=== PATIENT | female | born 1950 | race Caucasian/White ===

== ENCOUNTER 2020-02-23 11:23 | Inpatient (IN) | payer MEDICARE, OTHER ==
[~2020-02-23] VITALS: Ht 170 cm; Wt 93.4 kg
--- NOTE | 2020-02-23 11:57 | ED Lower Extremity ---
General Chief Complaint: Trauma-Non Activation Stated Complaint: FALL Nursing Triage Note: fall from same level. Is complaining of R leg and left arm pain. Nursing Sepsis Screen: No Definite Risk Source: patient Exam Limitations: no limitations History of Present Illness Date Seen by Provider: Feb 23, 2020 Time Seen by Provider: 11:50 Initial Comments Presents via private vehicle in a wheelchair w c/o right hip pain after a fall. Ground level fall landing on right side and hurting left shoulder as well. Hx of parkinson's Dz. Denies head or neck injury. Allergies and Home Medications Allergies Coded Allergies: monosodium glutamate (Verified Allergy, Unknown, blurry vision , 02/23/20) Patient Home Medication List Home Medication List Reviewed: Yes Review of Systems Constitutional: no symptoms reported; No chills, No diaphoresis, No fever, No malaise, No weakness EENTM: no symptoms reported Respiratory: No cough, No short of breath Cardiovascular: No chest pain, No edema, No palpitations, No syncope Gastrointestinal: No abdominal pain, No nausea, No vomiting Musculoskeletal: see HPI; No back pain; joint pain (right hip); No joint swelling, No neck pain; other (some pain left shoulder and arm) Skin: No change in color, No lesions, No lumps, No rash Psychiatric/Neurological: Denies Numbness, Denies Paresthesia Past Cjhvzll-Gwrfug-Sohxta Hx Past Med/Social Hx: Reviewed Nursing Past Med/Soc Hx Patient Social History Alcohol Use: Denies Use Recreational Drug Use: No Smoking Status: Current Everyday Smoker 2nd Hand Smoke Exposure: No Recent Foreign Travel: No Contact w/Someone Who Travel: No Recent Infectious Disease Expo: No Recent Hopitalizations: No Seasonal Allergies Seasonal Allergies: No Past Medical History Surgeries: Yes Section, Hysterectomy Respiratory: No Cardiac: No Neurological: Yes Parkinson's Disease Genitourinary: No Gastrointestinal: No Musculoskeletal: No Endocrine: No HEENT: No Cancer: No Psychosocial: No Integumentary: No Blood Disorders: No Adverse Reaction/Blood Tranf: No Physical Exam Vital Signs Vital Signs - First Documented 02/23/20 11:38 Temp 36.5 Pulse 78 Resp 16 B/P (MAP) 154/90 (111) Pulse Ox 91 Capillary Refill : Less Than 3 Seconds Height, Weight, BMI Height: '" Weight: lbs. oz. kg; 30.00 BMI Method: General Appearance: WD/WN, no apparent distress Neck: non-tender, full range of motion, supple Cardiovascular: regular rate, rhythm, no edema, no JVD Respiratory: lungs clear, normal breath sounds, no accessory muscle use Gastrointestinal: non tender, soft Back: normal inspection, no CVA tenderness, no vertebral tenderness Hips: left hip non-tender, left hip normal inspection, left hip normal range of motion, left hip no evidence of injury; right hip bone tenderness, right hip limited range of motion, right hip soft tissue tenderness Legs: bilateral leg non-tender, bilateral leg normal inspection, bilateral leg normal range of motion, bilateral leg no evidence of injury Knees: bilateral knee non-tender, bilateral knee normal inspection, bilateral knee normal range of motion, bilateral knee no evidence of injury Ankles: bilateral ankle non-tender, bilateral ankle normal inspection, bilateral ankle normal range of motion, bilateral ankle no evidence of injury Feet: bilateral foot non-tender, bilateral foot normal inspection, bilateral foot normal range of motion, bilateral foot no evidence of injury Neurologic/Psychiatric: alert, normal mood/affect, oriented x 3 Skin: normal color, warm/dry Progress/Results/Core Measures Results/Orders Lab Results Laboratory Tests Test 02/23/20 12:30 Range/Units White Blood Count 16.4 H 4.3-11.0 10^3/uL Red Blood Count 4.74 4.35-5.85 10^6/uL Hemoglobin 13.5 11.5-16.0 G/DL Hematocrit 41 35-52 % Mean Corpuscular Volume 87 80-99 FL Mean Corpuscular Hemoglobin 28 25-34 PG Mean Corpuscular Hemoglobin Concent 33 32-36 G/DL Red Cell Distribution Width 13.1 10.0-14.5 % Platelet Count 261 130-400 10^3/uL Mean Platelet Volume 10.2 7.4-10.4 FL Neutrophils (%) (Auto) 86 H 42-75 % Lymphocytes (%) (Auto) 9 L 12-44 % Monocytes (%) (Auto) 5 0-12 % Eosinophils (%) (Auto) 0 0-10 % Basophils (%) (Auto) 0 0-10 % Neutrophils # (Auto) 14.0 H 1.8-7.8 X 10^3 Lymphocytes # (Auto) 1.5 1.0-4.0 X 10^3 Monocytes # (Auto) 0.7 0.0-1.0 X 10^3 Eosinophils # (Auto) 0.0 0.0-0.3 10^3/uL Basophils # (Auto) 0.0 0.0-0.1 10^3/uL Neutrophils % (Manual) 70 % Lymphocytes % (Manual) 12 % Monocytes % (Manual) 5 % Eosinophils % (Manual) 1 % Basophils % (Manual) 0 % Band Neutrophils 12 % Blood Morphology Comment NORMAL Sodium Level 141 135-145 MMOL/L Potassium Level 4.1 3.6-5.0 MMOL/L Chloride Level 103 98-107 MMOL/L Carbon Dioxide Level 28 21-32 MMOL/L Anion Gap 10 5-14 MMOL/L Blood Urea Nitrogen 15 7-18 MG/DL Creatinine 0.78 0.60-1.30 MG/DL Estimat Glomerular Filtration Rate > 60 BUN/Creatinine Ratio 19 Glucose Level 135 H 70-105 MG/DL Calcium Level 9.3 8.5-10.1 MG/DL Corrected Calcium 9.1 8.5-10.1 MG/DL Total Bilirubin 0.4 0.1-1.0 MG/DL Aspartate Amino Transf (AST/SGOT) 18 5-34 U/L Alanine Aminotransferase (ALT/SGPT) 5 0-55 U/L Alkaline Phosphatase 148 H 40-136 U/L Total Protein 6.8 6.4-8.2 GM/DL Albumin 4.3 3.2-4.5 GM/DL My Orders Orders - ROVENSTINE,ELISHA L DO Hydrocodone/Apap 10/325 Tablet (Lortab 1 (02/23/20 12:00) Pelvis With Right Hip 2-3 View (02/23/20 12:04) Cbc With Automated Diff (02/23/20 12:51) Comprehensive Metabolic Panel (02/23/20 12:51) Chest 1 View Ap/Pa Only (02/23/20 12:51) Ekg Tracing (02/23/20 12:51) Manual Differential (02/23/20 12:30) Medications Given in ED Current Medications Medications Dose Ordered Sig/Adarsh Route Start Time Stop Time Status Last Admin Dose Admin Acetaminophen/ Hydrocodone Bitart 1 ea ONCE ONCE PO 02/23/20 12:00 02/23/20 12:01 DC 02/23/20 12:06 1 EA Vital Signs/I&O 02/23/20 11:38 Temp 36.5 Pulse 78 Resp 16 B/P (MAP) 154/90 (111) Pulse Ox 91 Blood Pressure Mean: 111 Initial ECG Rhythm: Normal Sinus Initial ECG Impression: Normal Departure Communication (Admissions) [address] Irizarry who agrees to see pt for Ortho repair. [address] Houston who agrees to admit Impression Primary Impression: Fracture of hip, right, closed Qualified Codes: S72.001A - Fracture of unspecified part of neck of right femur, initial encounter for closed fracture Additional Impression: Fall Qualified Codes: W19.XXXA - Unspecified fall, initial encounter Disposition: ADMITTED INPATIENT Condition: Stable Admissions Decision to Admit Reason: Admit from ER (Trauma) Decision to Admit/Date: Feb 23, 2020 Time/Decision to Admit Time: 12:20 Departure-Patient Inst. Referrals: ALEX VILLASENOR MD (PCP/Family) Primary Care Physician ELISHA CLAUDIO DO Feb 23, 2020 11:57
[2020-02-23] MEDS ORDERED: HYDROcodone/APAP 10 MG/325 MG (LORTAB) TAB PO ONE (12:00)
--- NOTE | 2020-02-23 12:35 | Diagnostic Imaging Report ---
INDICATION: Fall with right hip pain. Time of exam 12:19 PM AP view of the pelvis and multiple views right hip were obtained. There is a transversely oriented lucency through the right femoral neck extending through the medial cortex consistent with a right hip fracture. Femoral acetabular alignment is maintained. There is no dislocation. The left hip is intact. Rami are intact. IMPRESSION: Right femoral neck fracture. Dictated by: Dictated on workstation # [id number]
[2020-02-23] MEDS ORDERED: CARB1TAB19 PO (12:52)
[2020-02-23 13:04] LABS: HEMATOCRIT 41 % (35-52); HEMOGLOBIN 13.5 G/DL (11.5-16.0); MEAN CORPUSCULAR HEMOGLOBIN 28 PG (25-34); MEAN CORPUSCULAR HGB CONC 33 G/DL (32-36); MEAN CORPUSCULAR VOLUME 87 FL (80-99); PLATELET COUNT 261 10^3/uL (130-400); RED CELL DISTRIBUTION WIDTH 13.1 % (10.0-14.5); WHITE BLOOD COUNT 16.4 10^3/uL (4.3-11.0)
[2020-02-23 13:05] LABS: BASOPHILS % (AUTO) 0 % (0-10); EOSINOPHILS % (AUTO) 0 % (0-10); LYMPHOCYTES # (AUTO) 1.5 X 10^3 (1.0-4.0); LYMPHOCYTES % (AUTO) 9 % (12-44); MEAN PLATELET VOLUME 10.2 FL (7.4-10.4); MONOCYTES # (AUTO) 0.7 X 10^3 (0.0-1.0); MONOCYTES % (AUTO) 5 % (0-12); NEUTROPHILS % (AUTO) 86 % (42-75)
[2020-02-23] MEDS ORDERED: fentaNYL INJECTION 100 MCG/2 ML AMP ONE ×2 (13:07→15:50)
[2020-02-23 13:11] LABS: ALANINE AMINOTRANSFERASE 5 U/L (0-55); ALBUMIN 4.3 GM/DL (3.2-4.5); ALKALINE PHOSPHATASE 148 U/L (40-136); BILIRUBIN,TOTAL 0.4 MG/DL (0.1-1.0); BUN/CREATININE RATIO 19; CALCIUM 9.3 MG/DL (8.5-10.1); CARBON DIOXIDE 28 MMOL/L (21-32); CHLORIDE 103 MMOL/L (98-107); CREATININE SERUM 0.78 MG/DL (0.60-1.30); GFR ESTIMATED > 60; GLUCOSE 135 MG/DL (70-105); POTASSIUM 4.1 MMOL/L (3.6-5.0); SODIUM 141 MMOL/L (135-145); TOTAL PROTEIN 6.8 GM/DL (6.4-8.2)
[2020-02-23] MEDS ORDERED: fentaNYL INJECTION 100 MCG/2 ML AMP IVP ONE (13:15)
[2020-02-23 13:18] LABS: BAND NEUTROPHILS 12 %; BASOPHILS % (MANUAL) 0 %; EOSINOPHILS % (MANUAL) 1 %; LYMPHOCYTES % (MANUAL) 12 %; MONOCYTES % (MANUAL) 5 %; NEUTROPHILS % (MANUAL) 70 %; RBC MORPH NORMAL
--- OUTSIDE RECORDS SUMMARY | 2020-02-23 13:19 | XMS REPORT | Continuity of Care Document ---
Demographics Preferred Language Unknown Marital Status Unknown Congregation Affiliation Unknown Race Unknown Ethnic Group Unknown Author Organization Unknown Address Unknown Phone Unavailable Allergies There is no data. Medications There is no data. Problems There is no data. Procedures There is no data. Results Test Result Range Complete blood count (CBC) with automate d white blood cell (WBC) differential - 02/23/20 12:30 Blood leukocytes automated count (number/volume) 16.4 10*3/uL 4.3-11.0 Blood erythrocytes automated count (number/volume) 4.74 10*6/uL 4.35-5.85 Venous blood hemoglobin measurement (mass/volume) 13.5 g/dL 11.5-16.0 Blood hematocrit (volume fraction) 41 % 35-52 Automated erythrocyte mean corpuscular volume 87 [ foz_us] 80-99 Automated erythrocyte mean corpuscular h emoglobin (mass per erythrocyte) 28 pg 25-34 Automated erythrocyte mean corpuscular h emoglobin concentration measurement (mass/volume) 33 g/dL 32-36 Automated erythrocyte distribution width ratio 13. 1 % 10.0- 14.5 Automated blood platelet count (count/volume) 261 10*3/uL 130-400 Automated blood platelet mean volume measurement 10.2 [foz_us] 7.4-10.4 Automated blood neutrophils/100 leukocytes 86 % 42-75 Automated blood lymphocytes/100 leukocytes 9 % 12-44 Blood monocytes/100 leukocytes 5 % 0-12 Automated blood eosinophils/100 leukocytes 0 % 0-10 Automated blood basophils/100 leukocytes 0 % 0-10 Blood neutrophils automated count (number/volume) 14.0 10*3 1.8-7.8 Blood lymphocytes automated count (number/volume) 1.5 10*3 1.0-4.0 Blood monocytes automated count (number/volume) 0. 7 10*3 0.0-1.0 Automated eosinophil count 0.0 10*3/uL 0 .0-0.3 Automated blood basophil count (count/volume) 0.0 10*3/uL 0.0-0.1 Comprehensive metabolic panel - 02/23/20 12:30 Serum or plasma sodium measurement (moles/volume) 141 mmol/L 135-145 Serum or plasma potassium measurement (moles/volume) 4.1 mmol/L 3.6-5.0 Serum or plasma chloride measurement (moles/volume) 103 mmol/L 98-107 Carbon dioxide 28 mmol/L 21-32 Serum or plasma anion gap determination (moles/volume) 10 mmol/L 5-14 Serum or plasma urea nitrogen measurement (mass/volume ) 15 mg/dL 7-18 Serum or plasma creatinine measurement (mass/volume) 0.78 mg/dL 0.60-1.30 Serum or plasma urea nitrogen/creatinine mass ratio 19 NRG Serum or plasma creatinine measurement w ith calculation of estimated glomerular filtration rate > NRG Serum or plasma glucose measurement (mass/volume) 135 mg/dL 70-105 Serum or plasma calcium measurement (mass/volume) 9.3 mg/dL 8.5-10.1 Serum or plasma total bilirubin measurement (mass/volu me) 0.4 mg/dL 0.1-1.0 Serum or plasma alkaline phosphatase lesly surement (enzymatic activity/volume) 148 U/L 40-136 Serum or plasma aspartate aminotransfera se measurement (enzymatic activity/volume) 18 U/L 5-34 Serum or plasma alanine aminotransferase measurement (enzymatic activity/volume) 5 U/L 0-55 Serum or plasma protein measurement (mass/volume) 6.8 g/dL 6.4-8.2 Serum or plasma albumin measurement (mass/volume) 4.3 g/dL 3.2-4.5 CALCIUM CORRECTED 9.1 mg/dL 8.5-10.1 Manual absolute plasma cell count - 01/31 02/18 12:30 Blood monocytes/100 leukocytes 5 % NRG Manual blood segmented neutrophils/100 leukocytes 70 % NRG Blood band neutrophils/100 leukocytes 12 % NRG Manual blood lymphocytes/100 leukocytes 12 % NRG Manual eosinophils/100 leukocytes in nose 1 % NRG Manual blood basophils/100 leukocytes 0 % NRG Blood erythrocyte morphology finding identification NORMAL NRG Encounters ACCT No. Visit Date/Time Discharge Status Pt. Type Provider Facility Loc./Unit Complaint [id number] 02/23/2020 13:05:00 Document Registration
--- NOTE | 2020-02-23 13:24 | Diagnostic Imaging Report ---
INDICATION: Right hip fracture COMPARISON: None available TECHNIQUE: Single frontal radiograph of the chest dated February 23, 2020. FINDINGS: The cardiac silhouette is enlarged. Mild central pulmonary vascular congestion. Calcified granuloma within the peripheral right lung base. Mild diffuse interstitial opacities are noted bilaterally without additional focal pulmonary consolidation. No significant pleural effusion. No pneumothorax. Right cervical rib is suggested. No acute osseous abnormality. IMPRESSION: Cardiomegaly with mild central pulmonary vascular congestion and very minimal interstitial edema without pleural effusion. Probable right cervical rib. Dictated by: Dictated on workstation # [id number]
[2020-02-23 15:04] VITALS: BP 159/76
[2020-02-23] MEDS ORDERED: CATHETER FLUSH 10 ML SYR IV PRN (15:45)
[2020-02-23 15:49] VITALS: BP 159/76
[2020-02-23] MEDS ORDERED: fentaNYL INJECTION 100 MCG/2 ML AMP IVP PRN (16:00)
--- NOTE | 2020-02-23 16:43 | Progress Note ---
Standard Progress Note Progress Notes/Assess & Plan Date Seen by a Provider: Feb 23, 2020 Time Seen by a Provider: 16:42 Progress/Assessment & Plan patient seen and examined consult dictated plan for Right hip hemiarthroplasty in the AM PERI TELLES MD Feb 23, 2020 16:43
[2020-02-23 16:46] LABS: BILIRUBIN,URINE NEGATIVE (NEGATIVE); CLARITY,URINE CLOUDY; COLOR,URINE YELLOW; GLUCOSE, URINE (UA) NEGATIVE (NEGATIVE); KETONES,URINE TRACE (NEGATIVE); LEUKOCYTE ESTERASE ,URINE 1+ (NEGATIVE); NITRITE,URINE POSITIVE (NEGATIVE); PROTEIN,URINE NEGATIVE (NEGATIVE)
[2020-02-23 17:00] LABS: BACTERIA,URINE LARGE /HPF; WBC,URINE 25-50 /HPF
[2020-02-23] MEDS: SINEMET 25/100 (CARBIDOPA/LEVODOPA) TAB PO SCH ×2 (17:23→20:38)
[2020-02-23] MEDS: HYDROcodone/APAP 5 MG/325 MG (LORTAB) TAB PO PRN ×2 (17:34→23:42)
--- NOTE | 2020-02-23 17:34 | CONSULTATION REPORT ---
DATE OF SERVICE: 02/23/2020 REASON FOR CONSULTATION: Right femoral neck fracture. HISTORY OF PRESENT ILLNESS: The patient is a 69-year-old female with Parkinson's disease who fell this morning onto her right side. She reports that she fell very hard. She has difficulty getting up initially. 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 Ultimately, she ambulated with a walker, but had continued pain. She ultimately presented to an outside Emergency Department where radiographs were obtained and she was found to have a displaced right femoral neck fracture. She reports no antecedent pain. Her pain is currently well controlled and she earlier received some fentanyl. ALLERGIES: No known drug allergies. PAST MEDICAL HISTORY: Parkinson's. PAST SURGICAL HISTORY: , hysterectomy. PHYSICAL EXAMINATION: HEENT: Normocephalic, atraumatic. Pupils are equal, round and reactive to light. Oropharynx is clear. NECK: Supple, no lymphadenopathy. LUNGS: Clear to auscultation bilaterally. HEART: Regular rate and rhythm. ABDOMEN: Soft, nontender, nondistended. EXTREMITIES: The right lower extremity was externally rotated without significant shortening. She has symmetric pulses. She has intact dorsiflexion and plantarflexion of the toes with brisk capillary refill. Sensation is symmetric to light touch. Radiographs reveal displaced right femoral neck fracture. IMPRESSION: Closed displaced right femoral neck fracture. PLAN: Right hemiarthroplasty. The risks, benefits, options, ramifications and recovery were discussed at length with the patient. She understands and wishes to proceed. Job ID: [id number] DocumentID: [id number] Dictated Date: 02/23/2020 16:42:28 Animal Husbandry Technician Date: 02/23/2020 17:34:12 Dictated By: PERI TELLES MD
[2020-02-23 18:58] VITALS: BP 168/76
[2020-02-23 19:13] VITALS: BP 168/76
[2020-02-23] MEDS: CATHETER FLUSH 10 ML SYR IV SCH (20:38)
[2020-02-23 23:43] VITALS: BP 145/67
[2020-02-24] VITALS (11 sets, daily range): BP systolic 112–148; BP diastolic 59–71
[2020-02-24] MEDS: CATHETER FLUSH 10 ML SYR IV SCH ×3 (06:43→20:09)
[2020-02-24] MEDS ORDERED: ROCURONIUM 10 MG/ML 5 ML SYRINGE IV ONE (07:20)
[2020-02-24] MEDS ORDERED: ONDANSETRON 4 MG/2 ML (SDV) Z0FRAN ONE (07:20)
[2020-02-24] MEDS ORDERED: DEXAMETHASONE 10 MG/ML (DECADRON) 1 ML VIAL ONE (07:20)
[2020-02-24] MEDS ORDERED: SEVOFLURANE (ULTANE) 15 ML INHAL SOLN ONE (07:20)
[2020-02-24] MEDS ORDERED: SUCCINYLCHOLINE INJ 100 MG/5 ML SYR ONE (07:20)
[2020-02-24] MEDS ORDERED: proPOfol 200 MG/20 ML (DIPRIVAN) VIAL IV ONE (07:20)
[2020-02-24] MEDS ORDERED: fentaNYL INJECTION 100 MCG/2 ML AMP ONE (07:21)
[2020-02-24] MEDS ORDERED: MIDAZOLAM 2 MG/2 ML (VERSED) VIAL ONE (07:21)
[2020-02-24] MEDS ORDERED: LIDOCAINE PF 2% 5 ML (XYLOCAINE) VIAL ONE (07:26)
--- NOTE | 2020-02-24 07:30 | Progress Note-Pre Operative ---
Pre-Operative Progress Note H&P Reviewed The H&P was reviewed, patient examined and no changes noted. Date Seen by Provider: Feb 24, 2020 Time Seen by Provider: : Date H&P Reviewed: Feb 24, 2020 Time H&P Reviewed: : Pre-Operative Diagnosis: closed, displaced, right femoral neck fracture PERI TELLES MD Feb 24, 2020 07:30
--- NOTE | 2020-02-24 07:31 | Progress Note-Post Operative ---
Post-Operative Progess Note Surgeon (s)/Environmental Health Technologist (s) Surgeon PERI TELLES MD Environmental Health Technologist: Wilberto Anaya Pre-Operative Diagnosis closed, displaced, right femoral neck fracture Post-Operative Diagnosis closed, displaced, right femoral neck fracture Procedure & Operative Findings Date of Procedure 02/24/20 Procedure Performed/Findings right hip bipolar replacement Anesthesia Type GETA Estimated Blood Loss Estimated blood loss (mL): 200 ml Specimens/Packing Specimens Removed femoral head Packing: none PERI TELLES MD Feb 24, 2020 07:31
[2020-02-24] MEDS: LACTATED RINGERS 1,000 ML IV PRN ×2 (07:39→08:37)
[2020-02-24] MEDS ORDERED: ACETAMINOPHEN 325 MG TABLET PO PRN (07:45)
[2020-02-24] MEDS ORDERED: ONDANSETRON 4 MG/2 ML (SDV) Z0FRAN IVP PRN ×2 (07:45→09:30)
[2020-02-24] MEDS ORDERED: ceFAZolin 2 GM IV Premixed 50 ML IV ONE (07:45)
[2020-02-24] MEDS ORDERED: morphine INJ 4 MG/ML 1 ML (VIAL/SYRINGE) IVP PRN (07:45)
[2020-02-24] MEDS ORDERED: diphenhydrAMINE 50 MG/ML INJ (BENADRYL) IVP PRN (07:45)
[2020-02-24] MEDS ORDERED: TEMAZEPAM 15 MG (RESTORIL) CAP PO PRN (07:45)
[2020-02-24] MEDS ORDERED: HYDROmorphone 2 MG/ML VIAL (DILAUDID) ONE (07:59)
[2020-02-24] MEDS ORDERED: GLYCOPYRROLATE 0.2 MG/ML (ROBINUL) 2 ML VIAL ONE (08:16)
[2020-02-24] MEDS ORDERED: NEOSTIGMINE 3 MG/3 ML VIAL ONE (08:16)
[2020-02-24] MEDS ORDERED: ROPIVACAINE 5MG/ML 30ML VIAL ONE (08:29)
[2020-02-24] MEDS ORDERED: SENNOSIDES 8.6 MG (SENOKOT) TAB PO SCH (09:00)
[2020-02-24] MEDS ORDERED: RT-ALBUTEROL SULF 2.5 MG/3 ML PRE-MIX VIAL ONE (09:13)
[2020-02-24] MEDS ORDERED: HYDROmorphone 2 MG/ML VIAL (DILAUDID) IV ONE (09:30)
[2020-02-24] MEDS ORDERED: RT-ALBUTEROL SULF 2.5 MG/3 ML PRE-MIX VIAL INH ONE (09:30)
--- NOTE | 2020-02-24 09:34 | OPERATIVE REPORT ---
DATE OF SERVICE: 02/24/2020 PREOPERATIVE DIAGNOSIS: Closed displaced right femoral neck fracture. POSTOPERATIVE DIAGNOSIS: Closed displaced right femoral neck fracture. PROCEDURE: Right hip bipolar replacement. SURGEON: Jonathan Telles MD CARD CLOTHIER: Wilberto Anaya, who assisted throughout the procedure and closed the incisions. ANESTHESIA: General endotracheal by Olvin Kwong CRNA. ESTIMATED BLOOD LOSS: 200 mL. DRAINS: None. COMPLICATIONS: None. MATERIALS: DePuy/Synthes pressfit, 6 femoral stem with +5 (neutral) and 50 liner. The patient was transferred to the recovery room awake and in stable condition. POSTOPERATIVE PLAN: Routine protocol. STATEMENT OF MEDICAL NECESSITY: The patient is a 69-year-old female, who fell at home yesterday, presented to an outside facility and was transferred here for definitive treatment when she was found to have a displaced right femoral neck fracture. In addition, the patient has Parkinson's disease and due to the displaced nature of the fracture and her Parkinson's, it was recommended that the patient undergo bipolar replacement. DESCRIPTION OF PROCEDURE: After risks and benefits of procedure were discussed and questions were answered, informed consent was signed and placed on chart. The operative site was confirmed in the preoperative holding area and initialed by the surgeon. The patient was then transferred to the operating room and after adequate levels of general endotracheal anesthetic were obtained, a timeout was called, confirming the operative site. The patient was then carefully placed in left lateral decubitus position, being careful to place an axillary roll and pad all bony prominences. The right hip and lower extremity were prepped and draped in the usual sterile fashion. A longitudinal incision was made and a standard anterior lateral approach was utilized. The iliotibial band was incised in line with the incision. Hemostasis was obtained with cautery. The abductor tendon was released from the greater trochanter, leaving a 2 cm cuff for later reattachment. Hip capsulotomy was performed and the femoral neck fracture was identified using the provided guide. Femoral neck cut was made 2 cm proximal to the lesser trochanter. No abnormalities of her bone or the femoral head were noted. Femoral head was removed and sized to a size 50. The acetabulum was irrigated and inspected manually with no loose bodies noted. The proximal femur was then prepared with the box chisel followed by the T-handle reamer and sequential trials to a size 6. A 6 trial was left in position. A standard head and neutral neck were placed with 50 mm liner. The hip was reduced and found to be stable in all planes with no impingement noted. No pistoning was noted. The hip was redislocated. The trials were removed. The joint was further irrigated with pulse lavage. The soft tissues were irrigated with pulse lavage. The 6 press fit stem was then placed in 15 degrees of anteversion and had excellent fill. The neck was irrigated and the liner and head were placed. The hip was then reduced easily after inspecting the acetabulum for any loose bodies. The hip was taken through range of motion with no impingement noted and no instability noted in any plane. The joint was further irrigated with pulse lavage. The abductor tendon and capsule were repaired with #5 Tevdek in [id number] interrupted fashion with an excellent repair obtained. The wound was further irrigated. The iliotibial band was closed in a running fashion with #1 Vicryl. The wound was further irrigated. A 0 Vicryl was used for deep subcutaneous tissue, 2-0 Vicryl for the superficial subcutaneous tissue, manuel were used on the skin. A soft dressing and abduction pillow were applied and the patient was transferred to the recovery room awake and in stable condition. Job ID: [id number] DocumentID: [id number] Dictated Date: 02/24/2020 08:57:31 Interlocking Installer Date: 02/24/2020 09:33:36 Dictated By: JONATHAN TELLES MD
--- NOTE | 2020-02-24 10:20 | NUR ---
pt back from surgery. Addendum: 02/24/20 at 1027 by PETTY BROWN RN REPORT GIVEN BY HOUSTON DE [place]
[2020-02-24] MEDS: SENNOSIDES 8.6 MG (SENOKOT) TAB PO SCH ×2 (10:35→20:08)
[2020-02-24] MEDS: SINEMET 25/100 (CARBIDOPA/LEVODOPA) TAB PO SCH (10:35)
--- NOTE | 2020-02-24 11:23 | Diagnostic Imaging Report ---
Indication: Postop. Findings: Right hip prosthesis projects in anatomic alignment. The residual bony structures intact. Impression: Good appearance of the replaced right hip. Dictated by: Dictated on workstation # [id number]
--- NOTE | 2020-02-24 12:13 | History & Physical-Hospitalist ---
History of Present Illness HPI/Chief Complaint The patient is an independent 69-year-old white female with reported diagnosis of Parkinson's disease who reports falling when she was standing in her kitchen and turned walk to answer the door. She fell on her right side actually hit her head on the door but reports she did not lose consciousness. She denied feeling lightheaded prior to this. She had some right hip/groin pain but was able to get up. She actually was able to bear some weight LB it with pain. Her pain did not go away was asked to getting worse over the subsequent hour associated was taken to the emergency room where she was noted to have a right intertrochanteric hip fracture. She reports she was diagnosed with Parkinson's disease in 2016 after a fall that resulted in a left elbow fracture from her description it sounds like possible distal humeral fracture. The following that she had a resting tremor and is been on Sinemet since. She denies right-sided tremor or any problems or worsening tremor. She denies any difficulty with her gait she is independent at home. Her only complaint was over the past year she's been having episodes of palpitation questionable heart racing sensation is difficult to describe and last for 5-10 minutes. It typically happens several times per week. She was not having the sensation prior to her fall. She denied orthopnea PND pedal edema are or any increase in dyspnea on exertion over baseline. She is a 40+ pack year smoking history and continues to smoke. She is not on no inhaler therapy and denies a diagnosis of COPD. She denies any past history of cardiovascular disease she denied chest discomfort and also denied loss of consciousness prior or after her fall. Date Seen 02/24/20 Time Seen by a Provider: 12:12 Attending Physician Torri Hughes MD PCP Eleazar Chisholm MD Referring Physician Date of Admission Feb 23, 2020 at 13:08 Home Medications & Allergies Home Medications Reviewed patient Home Medication Reconciliation performed by pharmacy medication reconciliations emergency medical technician and/or nursing. Patients Allergies have been reviewed. Allergies Allergies Coded Allergies monosodium glutamate (Verified Allergy, Unknown, blurry vision , 02/23/20) Past Tqllcbf-Wjmbmy-Wlhcrj Hx Past Med/Social Hx: Reviewed Nursing Past Med/Soc Hx, Reviewed and Corrections made Patient Social History Alcohol Use: Denies Use Recreational Drug Use: No Smoking Status: Current Everyday Smoker 2nd Hand Smoke Exposure: No Recent Foreign Travel: No Contact w/other who traveled: No Recent Hopitalizations: No Recent Infectious Disease Expo: No Seasonal Allergies Seasonal Allergies: No Past Medical History Surgeries: Section, Hysterectomy Currently Using CPAP: No Currently Using BIPAP: No Neurological: Parkinson's Disease History of Blood Disorders: No Adverse Reaction to Blood Nuñez: No Family History Diabetes mellitus 19 FATHER 19 MOTHER Myocardial infarction G8 BROTHER Review of Systems Constitutional: see HPI Physical Exam Physical Exam Vital Signs Vital Signs - First Documented 02/23/20 02/23/20 02/23/20 11:38 13:52 15:04 Temp 36.5 Pulse 78 Resp 16 B/P (MAP) 154/90 (111) Pulse Ox 91 O2 Delivery Nasal Cannula O2 Flow Rate 2.00 Capillary Refill : Less Than 3 SecondsLess Than 3 Seconds Height, Weight, BMI Height: '" Weight: lbs. oz. kg; 208.73 BMI Method: General Appearance: No Apparent Distress, Obese HEENT: Other (No evidence for bruising or head trauma noted.) Neck: Full Range of Motion, Normal Inspection Respiratory: Chest Non Tender, No Accessory Muscle Use, No Respiratory Distress, Other (Few rhonchi in the left base a clear with inspiration no wheezing or rales appreciated.) Cardiovascular: Regular Rate, Rhythm, No Edema, No Gallop, No JVD, Normal Peripheral Pulses, Systolic Murmur (1-2/6 heard best at the left lower sternal border. No diastolic murmurs appreciated. No S3 or S4 noted.) Gastrointestinal: Normal Bowel Sounds, No Organomegaly, No Pulsatile Mass, Non Tender, Soft Extremity: Normal Capillary Refill, No Pedal Edema, Swelling (Right hip total hip replacement incision bandaged no drainage thus far.), Other (Dorsalis pedis pulses 2+ and symmetrical. Bilateral on echo lysis and nail thickening compatible with onychomycosis. No evidence for tenia pedis.) Neurologic/Psychiatric: Alert, Oriented x3 Skin: Normal Color, Warm/Dry Results Results/Procedures Labs Laboratory Tests 02/23/20 12:30 Patient resulted labs reviewed. Assessment/Plan Admission Diagnosis A/P 1. Right intertrochanteric hip fracture fall not from height suspect underlying osteoporosis. 2. Urinary tract infection growing Escherichia coli sensitivity pending no evidence for sepsis continue cefuroxime for now. 3. Questionable Parkinson's patient had a mild left resting tremor no cogwheeling noted will hold Sinemet for now as the patient doesn't feel there is much benefit from it. If there are significant worsening of her tremor with bradykinesia and gait disturbance will resume. 4. Tobaccoism will inquire about readiness to quit before discharge not appropriate conversation to have immediate postop period today. Admission Status: Inpatient Order (span 2 midnights) Reason for Inpatient Admission: See admission diagnosis Clinical Quality Measures DVT/VTE Risk/Contraindication: Risk Factor Score Per Nursin RFS Level Per Nursing on Admit: 4+=Very High TORRI HUGHES MD Feb 24, 2020 12:13
[2020-02-24] MEDS: CEFUROXIME INJECTION 750 MG in WATER (STERILE) FOR INJECTION 10 ML IV SCH (16:14)
[2020-02-24] MEDS: HYDROcodone/APAP 7.5 MG/325 MG (LORTAB, LORCET PLUS) TABLET PO PRN (16:14)
--- NOTE | 2020-02-24 16:17 | Physical Therapy Evaluation ---
PT Evaluation-General Medical Diagnosis Admission Date Feb 23, 2020 at 13:08 Medical Diagnosis: R femoral neck fracture Onset Date: Feb 23, 2020 Therapy Diagnosis Therapy Diagnosis: decreased mobility Precautions Precautions/Isolations: Standard Precautions Weight Bear Status Right Lower Extremity: Right Full Weight Bearing Left Lower Extremity: Left Full Weight Bearing Referral Physician: SHIRA Martínez Reason for Referral: Evaluation/Treatment Medical History Additional Medical History Parkinson's Current History Pt. fell at home, sustained R femoral neck fracturel; s/p R bipolar hip replacement. Reviewed History: Yes Social History Home: Single Level Current Living Status: Alone Entry Into Home: Level Entry Prior Prior Level of Function SCALE: Activities may be completed with or without assistive devices. 3-Fhebgnosmm-jrrasnx completes the activity by him/herself with no assistance from a helper. 5-Set-up or Clean-up Assistance-helper sets up or cleans up; patient completes activity. [place] assists only prior to or following the activity. 4-Supervision or Touching Assistance-helper provides verbal cues and/or touching/steadying and/or contact guard assistance as patient completes activity. Assistance may be provided throughout the activity or intermittently. 3-Partial/Moderate Assistance-helper does LESS THAN HALF the effort. [place] lifts, holds or supports trunk or limbs, but provides less than half the effort. 2-Substantial/Maximal Assistance-helper does MORE THAN HALF the effort. [place] lifts or holds trunk or limbs and provides more than half the effort. 5-Wzrfeyoda-qcwsmk does ALL the effort. Patient does none of the effort to complete the activity. Or, the assistance of 2 or more helpers is required for the patient to complete the activity. If activity was not attempted, code reason: 7-Patient Refused. 9-Not Applicable-not attempted and the patient did not perform the activity before the current illness, exacerbation or injury. 10-Not Attempted due to Environmental Limitations-(lack of equipment, weather restraints, etc.). 88-Not Attempted due to Medical Conditions or Safety Concerns. Bed Mobility: 6 Transfers (B,C,W/C): 6 Gait: 6 Indoor Mobility (Ambulation): Independent Prior Devices Use: None PT Evaluation-Current Subjective Pt. in bed and agrees to therapy. States "I'm just starting to feel it in this hip." No objective pain rating given. Pt/Family Goals home alone Objective Patient Orientation: Person, Place, Time, Situation Attachments: Oxygen, Booker Catheter, IV ROM/Strength ROM Upper Extremities WNL ROM Lower Extremities WNL L LE, R LE n/a Strength Upper Extremities WNL Strength Lower Extremities 5/5 L LE, R LE n/a Integumentary/Posture Integumentary bandage covering R hip incision with mild drainage at superior bandage Bladder Incontinence: Booker Cath Posture WNL Neuromuscular (Tone, Coordination, Reflexes) grossly intact Sensory Vision: Functional Hearing: Functional Sensation Right Upper Extremit: Intact Sensation Left Upper Extremity: Intact Sensation Right Lower Extremit: Intact Sensation Left Lower Extremity: Intact Transfers Sit to Lying (QC): 3 Lying to Sitting/Side of Bed(Q: 2 Sit to Stand (QC): 3 Balance Sitting Static: Good Sitting Dynamic: Good Standing Static: Fair Standing Dynamic: Fair Treatment educated in hip precautions, transfers Assessment/Needs Pt. is a 69 y.o. female s/p R THR following a fall with femoral neck fracture. Pt. is currently mod-max A with transfers, she did well with standing at EOB demonstrating good standing balance with CGA only. Pt. returned to bed, call l ight in reach and all needs met. Pt. would benefit from skilled PT to improve mobility and strength for return home (I). Rehab Potential: Good PT Short Term Goals Short Term Goals Time Frame: March 02, 2020 Sit to lyin Lying to sitting on side of be: 6 Sit to stand: 6 Chair/rxc-mh-qahzx transfer: 6 Toilet transfer: 6 Walk 150 feet: 6 PT Plan Problem List Problem List: Activity Tolerance, Functional Strength, Safety, Balance, Gait, Transfer, Bed Mobility, ROM Treatment/Plan Treatment Plan: Continue Plan of Care Treatment Plan: Bed Mobility, Education, Functional Activity Ramon, Functional Strength, Gait, Safety, Therapeutic Exercise, Transfers Treatment Duration: March 02, 2020 Frequency: 11 times per week Estimated Hrs Per Day: .5 hour per day Patient and/or Family Agrees t: Yes Time/GCodes Time In: 1510 Time Out: 1535 Total Billed Treatment Time: 25 Total Billed Treatment 1, EVMODC 15', FA 10' BHUMI DIAZ PT Feb 24, 2020 16:17
[2020-02-25] VITALS (7 sets, daily range): BP systolic 111–147; BP diastolic 56–75
[2020-02-25] MEDS: CEFUROXIME INJECTION 750 MG in WATER (STERILE) FOR INJECTION 10 ML IV SCH (00:28)
[2020-02-25] MEDS: HYDROcodone/APAP 7.5 MG/325 MG (LORTAB, LORCET PLUS) TABLET PO PRN ×3 (00:29→12:53)
--- NOTE | 2020-02-25 01:03 | NUR ---
0100-this rn assessed pt surgical dressing-the reinforced dressing had rolled up & was coming off. this rn replaced the reinforced dressing leaving the original in place as ordered. pt had a small amount of bloody drainage on the bed pad. bed pad was changed. pt requesting to have hip wedge removed. this rn educated pt on it's purpose & that dr. miles had an order for it. this pt advised this rn that she does not care, she feels caged up & tied down. pt stated that she was aware that this wedge was for her benefit for proper healing of the surgical site. pt continued to request the wedge be removed. this rn removed the wedge. pt agreed to allow this rn to roll up 2 blankets placing one on each side of the right leg to assist in keeping the leg straight.
[2020-02-25 04:59] LABS: HEMOGLOBIN 10.6 G/DL (11.5-16.0)
[2020-02-25] MEDS: MULTIVIT W/MINERALS TAB (THERAGRAN M) PO SCH (06:06)
[2020-02-25] MEDS: CATHETER FLUSH 10 ML SYR IV SCH ×3 (06:08→21:33)
--- NOTE | 2020-02-25 07:43 | Progress Note ---
Standard Progress Note Progress Notes/Assess & Plan Date Seen by a Provider: Feb 25, 2020 Time Seen by a Provider: 07:42 Progress/Assessment & Plan patient seen and examined consult dictated plan for Right hip hemiarthroplasty in the AM Final Diagnosis no complaints Vital Signs Date Time Temp Pulse Resp B/P (MAP) Pulse Ox O2 Delivery O2 Flow Rate FiO2 02/25/20 05:40 36.8 66 18 129/67 (87) 98 Nasal Cannula 4.00 02/25/20 04:00 36.8 66 18 129/67 (87) 98 Nasal Cannula 4.00 02/25/20 01:00 67 02/25/20 00:33 36.7 68 20 124/75 (91) 98 Nasal Cannula 4.00 02/24/20 20:08 Nasal Cannula 4.00 02/24/20 19:36 36.6 69 18 132/62 (85) 98 Nasal Cannula 4.00 02/24/20 19:00 77 02/24/20 15:38 36.2 76 18 141/66 (91) 94 Nasal Cannula 4.00 02/24/20 14:27 96 Room Air 02/24/20 13:48 79 02/24/20 11:08 36.6 76 20 121/66 (84) 96 Nasal Cannula 4.00 02/24/20 10:52 93 OxyMask 5.00 02/24/20 10:29 36.5 79 18 114/71 (85) 95 Nasal Cannula 4.00 02/24/20 10:05 Nasal Cannula 4 02/24/20 10:00 12 129/59 (82) 94 Nasal Cannula 4 02/24/20 09:59 Nasal Cannula 2 02/24/20 09:50 12 112/63 (79) 90 Nasal Cannula 2 02/24/20 09:45 OxyMask 5 02/24/20 09:40 14 131/61 (84) 96 OxyMask 5 02/24/20 09:30 14 143/60 (87) 96 OxyMask 5 02/24/20 09:30 OxyMask 5 02/24/20 09:20 12 133/60 (84) 95 OxyMask 10 02/24/20 09:15 36.6 16 144/66 (92) 93 OxyMask 10 02/24/20 09:15 OxyMask 10 02/24/20 08:00 96 Nasal Cannula 4.00 I & O 02/25/20 07:00 Intake Total 2800 ml Output Total 3400 ml Balance -600 ml Laboratory Tests Test 02/25/20 04:25 Range/Units Hemoglobin 10.6 #L 11.5-16.0 G/DL Hematocrit 33 L 35-52 % R hip dressing clean and dry. NVI distally. No calf tenderness s/p R hip bipolar mobilize PERI TELLES MD Feb 25, 2020 07:43
[2020-02-25] MEDS: ENOXAPARIN 40 MG/0.4 ML (LOVENOX) SYR SC SCH (07:53)
[2020-02-25] MEDS: SENNOSIDES 8.6 MG (SENOKOT) TAB PO SCH ×2 (07:53→21:21)
[2020-02-25] MEDS: ASPIRIN E.C. 81 MG (ECOTRIN) TAB PO SCH ×2 (07:53→07:54)
--- NOTE | 2020-02-25 11:49 | Anesthesia-General Post-Op ---
General Patient Condition Mental Status/LOC: Same as Preop Cardiovascular: Satisfactory Nausea/Vomiting: Absent Respiratory: Satisfactory Pain: Controlled Complications: Absent Post Op Complications Complications None Follow Up Care/Instructions Patient Instructions None needed. Anesthesia/Patient Condition Patient Condition Patient is doing well, no complaints, stable vital signs, no apparent adverse anesthesia problems. No complications reported per nursing. [place] [facility] [place]: EVERARDO Evans CRNA Feb 25, 2020 11:49
--- NOTE | 2020-02-25 12:06 | Progress Note - Hospitalist ---
Subjective HPI/CC On Admission Date Seen by Provider: Feb 25, 2020 Time Seen by Provider: 09:30 The patient is an independent 69-year-old white female with reported diagnosis of Parkinson's disease who reports falling when she was standing in her kitchen and turned walk to answer the door. She fell on her right side actually hit her head on the door but reports she did not lose consciousness. She denied feeling lightheaded prior to this. She had some right hip/groin pain but was able to get up. She actually was able to bear some weight LB it with pain. Her pain did not go away was asked to getting worse over the subsequent hour associated was taken to the emergency room where she was noted to have a right intertrochanteric hip fracture. She reports she was diagnosed with Parkinson's disease in 2016 after a fall that resulted in a left elbow fracture from her description it sounds like possible distal humeral fracture. The following that she had a resting tremor and is been on Sinemet since. She denies right-sided tremor or any problems or worsening tremor. She denies any difficulty with her gait she is independent at home. Her only complaint was over the past year she's been having episodes of palpitation questionable heart racing sensation is difficult to describe and last for 5-10 minutes. It typically happens several times per week. She was not having the sensation prior to her fall. She denied orthopnea PND pedal edema are or any increase in dyspnea on exertion over baseline. She is a 40+ pack year smoking history and continues to smoke. She is not on no inhaler therapy and denies a diagnosis of COPD. She denies any past history of cardiovascular disease she denied chest discomfort and also denied loss of consciousness prior or after her fall. Subjective/Events-last exam Patient quite weak unable to sit up without assistance but only reports some right hip discomfort with movement. She slept the night denies chest discomfort or shortness of breath. She's had no nausea and tolerating solids. Objective Exam Vital Signs Vital Signs Date Time Temp Pulse Resp B/P (MAP) Pulse Ox O2 Delivery O2 Flow Rate FiO2 02/25/20 11:23 37.3 63 18 122/63 (82) 97 Nasal Cannula 4.00 Capillary Refill : Less Than 3 SecondsLess Than 3 Seconds General Appearance: No Apparent Distress, Obese Respiratory: No Accessory Muscle Use, No Respiratory Distress, Other (few scattered rhonchi in bases no focal findings noted no rales) Cardiovascular: Regular Rate, Rhythm, No Edema, No Gallop, No JVD, No Murmur, Normal Peripheral Pulses Gastrointestinal: Normal Bowel Sounds, No Organomegaly, No Pulsatile Mass, Non Tender, Soft Extremity: Other (trace edema on right than on the left) Neurologic/Psychiatric: Alert, Oriented x3 Results/Procedures Lab Laboratory Tests 02/25/20 04:25 Patient resulted labs reviewed. Assessment/Plan Assessment and Plan Assess & Plan/Chief Complaint A/P 1. Right intertrochanteric hip fracture fall not from height suspect underlying osteoporosis. Postop day 2 status post right total hip replacement per Dr. Irizarry. The patient was not able to sit up without significant assistance from this examiner. Discussed likely need for rehabilitation before going home as she lives alone. Continue physical therapy. 2. Urinary tract infection growing Escherichia coli sensitivity pending no evidence for sepsis continue cefuroxime for now. 3. Questionable Parkinson's patient had a mild left resting tremor no cogwheeling noted. Sinemet is being held as the patient didn't feel as doing anything for her tremor and there is no evidence for exacerbation today off medication. 4. 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 I did not discuss tobacco cessation with her today. Clinical Quality Measures DVT/VTE Risk/Contraindication: Risk Factor Score Per Nursin RFS Level Per Nursing on Admit: 4+=Very High TORRI HUGHES MD Feb 25, 2020 12:05
[2020-02-25] MEDS ORDERED: CEPHALEXIN 250 MG (KEFLEX) CAP PO NR (12:15)
--- NOTE | 2020-02-25 14:43 | Physical Therapy Daily Note ---
PT Daily Note-Current Subjective Pt. in bed, states she is very stiff but is reluctant to get up with therapy. She states "I just can't do anything." Pain reports "very little" R hip pain in bed, states "now it's a 25" during transfers. Mental Status Patient Orientation: Person, Place, Situation Attachments: SCD's, Oxygen Transfers SCALE: Activities may be completed with or without assistive devices. 9-Dinbyaoglg-foyrlxc completes the activity by him/herself with no assistance from a helper. 5-Set-up or Clean-up Assistance-helper sets up or cleans up; patient completes activity. [place] assists only prior to or following the activity. 4-Supervision or Touching Assistance-helper provides verbal cues and/or touching/steadying and/or contact guard assistance as patient completes activity. Assistance may be provided throughout the activity or intermittently. 3-Partial/Moderate Assistance-helper does LESS THAN HALF the effort. [place] lifts, holds or supports trunk or limbs, but provides less than half the effort. 2-Substantial/Maximal Assistance-helper does MORE THAN HALF the effort. [place] lifts or holds trunk or limbs and provides more than half the effort. 3-Odydqbvar-towghy does ALL the effort. Patient does none of the effort to complete the activity. Or, the assistance of 2 or more helpers is required for the patient to complete the activity. If activity was not attempted, code reason: 7-Patient Refused. 9-Not Applicable-not attempted and the patient did not perform the activity before the current illness, exacerbation or injury. 10-Not Attempted due to Environmental Limitations-(lack of equipment, weather restraints, etc.). 88-Not Attempted due to Medical Conditions or Safety Concerns. Lying to Sitting/Side of Bed(Q: 2 Sit to Stand (QC): 3 Chair/Van-uf-Ibtkt Xfer(QC): 3 Toilet Transfer (QC): 3 Weight Bearing Right Lower Extremity: Right Full Weight Bearing Left Lower Extremity: Left Full Weight Bearing Treatments transfers to edge of bed, chair to bed, chair to/from commode Assessment Current Status: Fair Progress Pt. continues to have significant difficulty getting to edge of bed and is unable to move the R LE during the transfer. She needs mod A to stand and transfer bed to chair. Pt. requires constant cuing for foot and walker placement; cues for safety to avoid 'butt diving' into chair before properly positioned. Pt. c/o "stomach discomfort" while sitting in chair and did transfer to commode but no bowel movement occurred. Pt. returned to bedside chair, call light in hand and specific instructions to call nurse for any needs and when ready to return to bed. Pt. completed LAQ and ankle pumps x 20 while seated in chair. Hip wedge place between LE's post session, all needs met. PT Short Term Goals Short Term Goals Time Frame: March 02, 2020 Sit to lyin Lying to sitting on side of be: 6 Sit to stand: 6 Chair/heu-tp-iccvy transfer: 6 Toilet transfer: 6 Walk 150 feet: 6 PT Plan Treatment/Plan Treatment Plan: Continue Plan of Care Treatment Plan: Bed Mobility, Education, Functional Activity Ramon, Functional Strength, Gait, Safety, Therapeutic Exercise, Transfers Treatment Duration: March 02, 2020 Frequency: 11 times per week Estimated Hrs Per Day: .5 hour per day Patient and/or Family Agrees t: Yes Time/GCodes Time In: 1402 Time Out: 1430 Total Billed Treatment Time: 28 Total Billed Treatment 1, FA 28' BHUMI DIAZ PT Feb 25, 2020 14:43
[2020-02-25] MEDS: CEPHALEXIN 250 MG (KEFLEX) CAP PO SCH (21:32)
[2020-02-26 04:00] VITALS: BP 146/67
[2020-02-26 04:52] LABS: HEMOGLOBIN 10.9 G/DL (11.5-16.0)
[2020-02-26] MEDS: MULTIVIT W/MINERALS TAB (THERAGRAN M) PO SCH (06:02)
[2020-02-26] MEDS: HYDROcodone/APAP 7.5 MG/325 MG (LORTAB, LORCET PLUS) TABLET PO PRN (06:03)
[2020-02-26] MEDS: CATHETER FLUSH 10 ML SYR IV SCH (06:03)
--- NOTE | 2020-02-26 06:14 | NUR ---
602-this rn enter room, pt awake laying in bed, pt had taken off her oxygen & through it in the floor. this rn checked pt o2 sat 90% hr 70, no distress noted. o2 placed back on pt 2lnc. 604-o2 sat 96% hr 68 O2 2l nc. no distress, pt began doing her I.S. this rn attempted to turn or reposition pt, pt refused again.
[2020-02-26 07:39] VITALS: BP 146/72
--- NOTE | 2020-02-26 08:05 | Progress Note ---
Standard Progress Note Progress Notes/Assess & Plan Date Seen by a Provider: Feb 26, 2020 Time Seen by a Provider: 08:04 Progress/Assessment & Plan patient seen and examined consult dictated plan for Right hip hemiarthroplasty in the AM Final Diagnosis no complaints Vital Signs Date Time Temp Pulse Resp B/P (MAP) Pulse Ox O2 Delivery O2 Flow Rate FiO2 02/26/20 07:39 37.0 69 16 146/72 (96) 95 Nasal Cannula 2.00 02/26/20 07:00 65 02/26/20 04:00 37.0 71 20 146/67 (93) 95 Nasal Cannula 2.00 02/26/20 01:00 59 02/25/20 23:46 20 02/25/20 19:44 37.4 73 20 147/72 (97) 98 Nasal Cannula 4.00 02/25/20 19:35 Nasal Cannula 4.00 02/25/20 19:00 68 02/25/20 16:00 37.5 76 18 116/56 (76) 96 Nasal Cannula 4.00 02/25/20 12:45 75 02/25/20 11:23 37.3 63 18 122/63 (82) 97 Nasal Cannula 4.00 I & O 02/26/20 07:00 Intake Total 1842 ml Output Total 1700 ml Balance 142 ml Laboratory Tests Test 02/26/20 03:53 Range/Units Hemoglobin 10.9 L 11.5-16.0 G/DL Hematocrit 34 L 35-52 % R hip incision clean and dry. No calf tenderness s/p R hip bipolar PPT/OT IRU? DC PERI Khanna MD Feb 26, 2020 08:05
[2020-02-26] MEDS: SENNOSIDES 8.6 MG (SENOKOT) TAB PO SCH (08:22)
[2020-02-26] MEDS: ENOXAPARIN 40 MG/0.4 ML (LOVENOX) SYR SC SCH (08:22)
[2020-02-26] MEDS: CEPHALEXIN 250 MG (KEFLEX) CAP PO SCH (08:24)
[2020-02-26] MEDS: ASPIRIN E.C. 81 MG (ECOTRIN) TAB PO SCH (08:25)
--- NOTE | 2020-02-26 10:06 | NUR ---
IRF Evaluation Order received to evaluate patient for the ARU. Chart review complete and findings discussed with Dr. Arndt - patient accepted. Met with patient to discuss details related to rehabilitation program. Patient is agreeable to required therapy regimen and admission. Anticipate admission, 02/25. CM/SS notified. Thank you for this referral.
[2020-02-26 10:26] VITALS: BP 146/72
[2020-02-26 10:41] LABS: BASOPHILS % (AUTO) 0 % (0-10); EOSINOPHILS # (AUTO) 0.3 10^3/uL (0.0-0.3); EOSINOPHILS % (AUTO) 3 % (0-10); HEMATOCRIT 34 % (35-52); LYMPHOCYTES # (AUTO) 1.9 X 10^3 (1.0-4.0); LYMPHOCYTES % (AUTO) 19 % (12-44); MEAN CORPUSCULAR HEMOGLOBIN 28 PG (25-34); MEAN CORPUSCULAR HGB CONC 33 G/DL (32-36); MEAN CORPUSCULAR VOLUME 87 FL (80-99); MEAN PLATELET VOLUME 10.6 FL (7.4-10.4); MONOCYTES % (AUTO) 10 % (0-12); NEUTROPHILS # (AUTO) 6.8 X 10^3 (1.8-7.8); NEUTROPHILS % (AUTO) 68 % (42-75); PLATELET COUNT 210 10^3/uL (130-400); RED CELL DISTRIBUTION WIDTH 13.2 % (10.0-14.5)
[2020-02-26 10:56] LABS: ALBUMIN 3.6 GM/DL (3.2-4.5); CHLORIDE 104 MMOL/L (98-107); POTASSIUM 3.9 MMOL/L (3.6-5.0); SODIUM 139 MMOL/L (135-145)
[2020-02-26 10:57] LABS: CALCIUM 8.9 MG/DL (8.5-10.1)
[2020-02-26 10:58] LABS: GLUCOSE 156 MG/DL (70-105)
[2020-02-26] MEDS ORDERED: ASPI325T32 PO (10:58)
[2020-02-26] MEDS ORDERED: LORA10TA76 PO (10:58)
--- NOTE | 2020-02-26 10:58 | NUR ---
SPOKE WITH THE PT AND WENT THRU THE EXT MED HISTORY TO COMPLETE THE MED REC OTC MEDS: CLARITIN PRN ASPIRIN PRN
[2020-02-26 10:59] LABS: TOTAL PROTEIN 6.3 GM/DL (6.4-8.2)
[2020-02-26 11:00] LABS: BILIRUBIN,TOTAL 0.7 MG/DL (0.1-1.0); CARBON DIOXIDE 25 MMOL/L (21-32)
[2020-02-26 11:02] LABS: ALKALINE PHOSPHATASE 99 U/L (40-136); GFR ESTIMATED > 60
--- NOTE | 2020-02-26 11:02 | Consultation-Cardiology ---
HPI-Cardiology Cardiology Consultation Date of Consultation 02/26/20 Date of Admission Time Seen by Provider: 10:30 Indication: dyspnea, tobaccoism HPI Patient is a 69 year old female with history of Parkinsons, tobaccoism, recent UTI. Sustained a fall at home resulting in right hip fracture. Underwent repair on 02/24/2020. Denies any chest pain. Reports occasional dyspnea with exertion and states this has been a chronic problem for years. Denies any chest pain. Reports episodes of occasional palpitations. Patient is a smoker. Denies any previous diagnosis of CHF, CAD, COPD. Home Medications & Allergies Allergies: Coded Allergies: monosodium glutamate (Verified Allergy, Unknown, blurry vision , 02/23/20) Home Medication List Reviewed: Yes DTB-Lgzogz-Semnzj Hx Patient Social History Alcohol Use: Denies Use Recreational Drug Use: No Smoking Status: Current Everyday Smoker 2nd Hand Smoke Exposure: No Recent Foreign Travel: No Recent Infectious Disease Expo: No Recent Hopitalizations: No Past Medical History Parkinsons, tobaccoism, obesity Family Medical History Significant Family History: No Pertinent Family Hx Family History: Diabetes mellitus 19 FATHER 19 MOTHER Myocardial infarction G8 BROTHER Review of Systems-General Review of Systems Constitutional: see HPI; No diaphoresis, No fever, No malaise, No weakness EENTM: no symptoms reported; No blurred vision, No double vision Respiratory: see HPI; No cough; dyspnea on exertion; No hemoptysis, No orthopnea, No phlegm; short of breath Cardiovascular: No chest pain, No edema, No palpitations, No syncope Gastrointestinal: No abdominal pain, No constipation, No diarrhea, No nausea, No vomiting Genitourinary: No hematuria Musculoskeletal: see HPI; No back pain; joint pain (right hip); No joint swelling, No neck pain; other (some pain left shoulder and arm) Skin: No change in color, No lesions, No lumps, No rash Psychiatric/Neurological: Denies Numbness, Denies Paresthesia Reviewed Test Results Reviewed Test Results Lab Laboratory Tests 02/26/20 03:53: Hemoglobin 10.9L, Hematocrit 34L 02/26/20 10:30: Hemoglobin 11.0L, Hematocrit 34L, White Blood Count 10.0, Red Blood Count 3.87L, Mean Corpuscular Volume 87, Mean Corpuscular Hemoglobin 28, Mean Corpuscular Hemoglobin Concent 33, Red Cell Distribution Width 13.2, Platelet Count 210, Mean Platelet Volume 10.6H, Neutrophils (%) (Auto) 68, Lymphocytes (%) (Auto) 19, Monocytes (%) (Auto) 10, Eosinophils (%) (Auto) 3, Basophils (%) (Auto) 0, Neutrophils # (Auto) 6.8, Lymphocytes # (Auto) 1.9, Monocytes # (Auto) 1.0, Eosinophils # (Auto) 0.3, Basophils # (Auto) 0.0, Sodium Level 139, Potassium Le slava 3.9, Chloride Level 104, Carbon Dioxide Level 25, Anion Gap 10, Glucose Level 156H, Calcium Level 8.9, Corrected Calcium 9.2, Total Bilirubin 0.7, Total Protein 6.3L, Albumin 3.6 Microbiology 02/23/20 MRSA Screen - Final, Complete MRSA not isolated 02/23/20 Urine Culture - Final, Complete Escherichia coli Physical Exam Physical Exam Vital Signs Vital Signs - First Documented 02/23/20 02/23/20 02/23/20 11:38 13:52 14:00 Temp 36.5 Pulse 78 Resp 16 B/P (MAP) 154/90 (111) Pulse Ox 91 O2 Delivery Nasal Cannula O2 Flow Rate 2.00 Capillary Refill : Less Than 3 SecondsLess Than 3 Seconds Height, Weight, BMI Height: '" Weight: lbs. oz. kg; 32.31 BMI Method: General Appearance: No Apparent Distress, Obese HEENT: PERRL/EOMI, Normal ENT Inspection, Other (No evidence for bruising or head trauma noted.) Neck: Full Range of Motion, Normal Inspection Respiratory: No Accessory Muscle Use, No Respiratory Distress, Other (few scattered rhonchi in bases no focal findings noted no rales) Cardiovascular: Regular Rate, Rhythm, No Edema, No Gallop, No JVD, No Murmur, Normal Peripheral Pulses Gastrointestinal: Normal Bowel Sounds, No Organomegaly, No Pulsatile Mass, Non Tender, Soft Back: No CVA Tenderness Extremity: Non Tender, No Calf Tenderness, No Pedal Edema, Other (trace edema on right than on the left) Neurologic/Psychiatric: Alert, Oriented x3, 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 Planning for discharge today to IRF, continue with PT/OT Dyspnea, reports chronic dyspnea for past several years, slight increase in dyspnea over the past month, probable underlying COPD. Reports questionable hx of CHF in past, although no workup was done. I will evaluate 2D Echo Palpitations, occurring infrequently, continue to monitor. Tobaccoism, educated on the importance of smoking cessation. Parkinsons, management per PCP. UTI- continue on antibiotic, management per PCP Thank you for allowing us to participate in the management of Ms. Guerin. This is Kin Bates PA-C, as a scribe for Dr. Cast. Patient was seen and evaluated with Kin, examination performed, management plan was discussed, agree with the current scribed note, I made few changes to the note using Italic font Patient was seen at bedside, comfortable, reporting improvement, reporting some shortness of breath earlier Able to walk about a mile without difficulty usually Continue on current medication at this time, evaluate 2-D echo, no changes are recommended Clinical Quality Measures DVT/VTE Risk/Contraindication: Risk Factor Score Per Nursin RFS Level Per Nursing on Admit: 4+=Very High KIN CEJA Feb 26, 2020 11:02 LAURYN CAST MD Feb 26, 2020 13:54
[2020-02-26 11:03] LABS: BUN/CREATININE RATIO 16
[2020-02-26 11:05] LABS: ALANINE AMINOTRANSFERASE 23 U/L (0-55)
[2020-02-26] MEDS ORDERED: CEPH250C PO (11:51)
--- NOTE | 2020-02-26 12:06 | NUR ---
discharged to IRF report given to Jocelyn Shepard RN
--- NOTE | 2020-02-27 14:04 | Physician Query Clarification ---
PQ-Conflicting Diagnosis Admission/Discharge Admission Date: Feb 23, 2020 at 13:08 Discharge Date: Feb 26, 2020 at 12:08 The medical record reflects the following clinical scenario: History/Risk Factors: Rt intertrochanteric fx - fall Clinical Findings: 02/22 hip/pelvic xray - There is a transversely oriented lucency through the right femoral neck extending through the medial cortex consistent with a right hip fracture. Femoral acetabular alignment is maintained. There is no dislocation. The left hip is intact. Rami are intact. IMPRESSION: Right femoral neck fracture. Treatment: rt bipolar hip replacement Question: Do you agree with the impression of the Right intertrochanteric hip fracture fall not from height suspect underlying osteoporosis. per Dr. Houston. Please document a response in Progress Note or Discharge Summary. 1. Yes 2. No 3. Other, with explanation of clinical findings 4. Clinically undetermined, no explanation for clinical findings. PHYSICIAN RESPONSE Do you agree w/Consulting Dx?: Yes Please remember a lack of response to the above will prompt a phone page by CDI/Coding staff. In responding to this query, please exercise your independent professional judgment. The purpose of this communication is to more accurately reflect the complexity of your patients condition. The fact that a question is asked does not imply that any particular answer is desired or expected. Thank you for your timely response to this clarification. Requestors name: Migdalia THIS PHYSICIAN QUERY FORM IS A PERMANENT PART OF THE MEDICAL RECORD MIGDALIA BERMAN Feb 27, 2020 14:04 PERI TELLES MD Feb 27, 2020 19:05
== END 2020-02-26 12:08 | DRG 470 ==
LOC: ER FS 11:26 → 4TH 13:08
PROVIDERS: ADMIT Internal Medicine; ATTEND Family Medicine
PROC: 0SRR01A Replacement of Right Hip Joint, Femoral Surface with Metal Synthetic Substitute, Uncemented, Open Approach (ICD-10-PCS; principal; 2020-02-24 08:04)
DX: M80.051A Age-related osteoporosis with current pathological fracture, right femur, initial encounter for fracture (principal); N39.0 Urinary tract infection, site not specified; B96.20 Unspecified Escherichia coli [E. coli] as the cause of diseases classified elsewhere; G20 Parkinson's disease; F17.200 Nicotine dependence, unspecified, uncomplicated; J44.9 Chronic obstructive pulmonary disease, unspecified; R00.2 Palpitations; W19.XXXA Unspecified fall, initial encounter; Y92.009 Unspecified place in unspecified non-institutional (private) residence as the place of occurrence of the external cause
CPT/HCPCS: 36415; 71045; 73502; 80053; 81000; 83880; 85007; 85014; 85018; 85025; 85027; 86850; 86900; 86901; 87077; 87081; 87088; 87186; 93005; 94640; 94664; 96374

== ENCOUNTER 2020-02-26 10:14 | Inpatient (IN) | payer MEDICARE, OTHER ==
[~2020-02-26] VITALS: Ht 170.2 cm; Wt 92.9 kg
[~2020-02-26 10:14] MED LIST: CARB1TAB19 PO
[2020-02-26] MEDS ORDERED: ACETAMINOPHEN 500 MG TAB (TYLENOL) PO PRN (10:30)
[2020-02-26] MEDS ORDERED: MELATONIN 3 MG TABLET PO PRN (10:30)
[2020-02-26] MEDS ORDERED: DOCUSATE SODIUM 100 MG (COLACE) CAP PO PRN (10:30)
[2020-02-26] MEDS ORDERED: ALPRAZolam 0.25 MG (XANAX) TAB PO PRN (10:30)
[2020-02-26] MEDS ORDERED: LACTULOSE SYRUP 10GM/15ML (ENULOSE) 30ML UDC PO PRN (10:30)
[2020-02-26] MEDS ORDERED: diphenhydrAMINE 25 MG TAB (BENADRYL) PO PRN (10:30)
[2020-02-26] MEDS ORDERED: FLEET ENEMA ADULT 1 EA BTL PR PRN (10:30)
[2020-02-26] MEDS ORDERED: CALCIUM CARBONATE 500 MG (TUMS) TAB.CHEW PO PRN (10:30)
[2020-02-26] MEDS ORDERED: ENOXAPARIN 40 MG/0.4 ML (LOVENOX) SYR SC SCH ×2 (10:30→15:30)
[2020-02-26] MEDS ORDERED: BISACODYL 10 MG SUPP (DULCOLAX) PR PRN (10:30)
[2020-02-26] MEDS ORDERED: LOPERAMIDE 2 MG (IMODIUM) TABLET PO PRN (10:30)
[2020-02-26] MEDS ORDERED: ONDANSETRON 4 MG (ZOFRAN) ORAL DISSOLVE TAB PO PRN (10:30)
[2020-02-26] MEDS ORDERED: ONDANSETRON 4 MG/2 ML (SDV) Z0FRAN IV PRN (10:30)
[2020-02-26] MEDS ORDERED: LORA10TA76 PO (10:58)
[2020-02-26] MEDS ORDERED: ASPI325T32 PO (10:58)
[2020-02-26] MEDS ORDERED: CEPH250C PO (11:51)
--- NOTE | 2020-02-26 12:10 | NUR ---
Pt admitted to room 233-1, with an admitting diagnosis of S/P Rt hip fx on 02/26/20 from [facility] [place] via w/c, accompanied by PT. JOSEPH HANNA introduced to surroundings, call light, bed controls, phone, TV, temperature control, lights, meal times, smoking policy, visitor policy, side rail policy, bathrooms and showers. Patient Rights given to patient in the handbook. JOSEPH HANNA verbalizes understanding that [facility] is not responsible for the loss or damage to any personal effects or valuables that are kept in the patients posession during their hospitalization. The following Patient Care Plans were discussed with the pt: Discharge Planning, Impaired Mobility, Self Care Deficit, Potential for fall/injury. JOSEPH HANNA verbalizes understanding of Interdisciplinary Patient Education. Patient informed about the Rapid Response Team and its purpose. Patient received Patient Rights Booklet, which includes Privacy Act Statement and Data Collection Information Summary.
[2020-02-26 12:32] VITALS: BP 112/51
--- NOTE | 2020-02-26 13:30 | NUR ---
"RD ASSESSMENT PMHx: Parkinson's disease; current admission: hip fracture PT INTERACTION: Pt was awake and pleasant during nutrition assessment. Note all diet information gathered from pt this day while in room 408. Pt states current appetite is horrible, and has been for the last 2-3 days. Note avg PO intake 38% x2d, per chart review. Pt states following a regular diet at home and has no issues with chewing/swallowing food. Pt states no recent issues with nausea or vomiting at this time. Pt states recent issues with constipation for the last 4-6days, and states last BM was 02/21. Note pt currently on bowel regimen of Senna BID, per chart review. Pt states recent 15# wt loss d/t dieting, but unsure of timeframe. Note unable to determine recent wt hx, per chart review. ABNORMAL NUTRITION-RELATED LAB VALUES LOW: HIGH: glu 135; alkphos 148 Est. kcal needs: 7986-1871 kcal | 20-25 kcal/kg Est. Pro needs: 75-93 g Pro | 0.8-1.0 g Pro/kg PES STATEMENT: Inadequate oral intake (NI-2.1) related to loss of appetite | constipation as evidenced by pt interview | avg PO intake 38% x2d INTERVENTION: Continue with current diet order of Regular diet. Add Ensure Enlive (vary) to meals TID, for increased kcal intake. Provides 350 kcal and 13 g Pro per serving. Encouraged pt to eat when able. Will continue to follow and reassess as pt needs, intake, and status change. MONITOR/EVALUATE: PO Intake; Plan of Care; Hydration Status; Weight Status; Lab Values Joselito Bales, MS, RD, LD"
--- NOTE | 2020-02-26 14:03 | Occupational Therapy Eval ---
OT Evaluation-General/PLF Medical Diagnosis Admission Date Feb 26, 2020 at 12:10 Medical Diagnosis: R hip fx; s/p bipolar hip repair Onset Date: Feb 23, 2020 Therapy Diagnosis Therapy Diagnosis: Decreased ADL status Precautions Precautions/Isolations: Fall Prevention, Standard Precautions Weight Bear Status Weight Bearing Restriction: Full Weight Bearing Posterior hip precautions -- bipolar hip replacement Referral Physician: Gabby Arndt DO Referral Reason: Activity Tolerance, Self Care, Evaluation/Treatment, Stre ngthening/ROM Medical History Additional Medical History Parkinsons, current everyday smoker Current History Pt fell at work 02/22, resulting in R femoral neck fx Pt underwent successful bipolar hip replacement following day (02/23) Reviewed History: Yes Social History Home: Apartment Current Living Status: Alone Entry Into Home: Level Entry Steps Into Home: 0 Steps Inside Home: 0 ADL-Prior Level of Function SCALE: Activities may be completed with or without assistive devices. 3-Oyxqxsxumu-zqfsloc completes the activity by him/herself with no assistance from a helper. 5-Set-up or Clean-up Assistance-helper sets up or cleans up; patient completes activity. [place] assists only prior to or following the activity. 4-Supervision or Touching Assistance-helper provides verbal cues and/or touching/steadying and/or contact guard assistance as patient completes activity. Assistance may be provided throughout the activity or intermittently. 3-Partial/Moderate Assistance-helper does LESS THAN HALF the effort. [place] lifts, holds or supports trunk or limbs, but provides less than half the effort. 2-Substantial/Maximal Assistance-helper does MORE THAN HALF the effort. [place] lifts or holds trunk or limbs and provides more than half the effort. 0-Etvsmxyhe-xigugx does ALL the effort. Patient does none of the effort to complete the activity. Or, the assistance of 2 or more helpers is required for the patient to complete the activity. If activity was not attempted, code reason: 7-Patient Refused. 9-Not Applicable-not attempted and the patient did not perform the activity before the current illness, exacerbation or injury. 10-Not Attempted due to Environmental Limitations-(lack of equipment, weather restraints, etc.). 88-Not Attempted due to Medical Conditions or Safety Concerns. ADL PLOF Comments Pt states IND with all I/ADLs. 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 Pt states pain, though states not severe enough for pain meds, nursing notified. OT/ PT co-treat: [id number] (35) Co-treat rendered due to pt's decreased strength/ endurance, dependent transfers, increased pain, decreased safety awareness due to decreased precaution maintenance. OT addresses ADLs, UE strength, and problem solving as PT addresses balance, transfers, and w/c management. Mental Status/Objective Patient Orientation: Person, Place, Situation Current Glasses/Contacts: Yes Hearing Aids: No Dentures/Partials: Yes Hand Dominance: Right Upper Extremity ROM WFL BUE Upper Extremity Coordination WFL BUE, L UE tremors Upper Extremity Sensation WFL BUE Upper Extremity Strength WFL BUE (4-/5) ADL-Treatment Eating (QC): 6 Oral Hygiene (QC): 6 Shower/Bathe Self (QC): 3 (Pt able to complete all items with min A (requires assist with BLEs and educated on LHS, cues throughout for maintenance of precautions)) Upper Body Dressing (QC): 5 (s/u) Lower Body Dressing (QC): 2 (max A prior to education of AEPt completes clothing doffing with cues for precaution maintenance and use of AE, requires cues for use of AE for clothing donning)) On/Off Footwear (QC): 1 (TD prior to AE educationPt educated on use of sock aide, pt completes with min A bilaterally.) Toileting Hygiene (QC): 4 (CGA in stance.) Other Treatments Pt educated on ARU standards and OT role. Pt completes medical hx/ home environment report. Pt agreeable to session, stating desire for shower. Pt able to state 1/3 precautions, educated on 2/3. pt completes ADLs as above with noted increased cues for precaution maintenance during LB dressing tasks. Able to state 2/3 precautions mid-session. Pt repeats some statements at times. Pt requires mod A x1 for sit to stand, requires increased assist when becoming fatigued. OT/ PT co-treat: Pt requires Ax2 during sit to stand, max A x2. Pt stands at walker, requires assist with pant donning due to decreased balance/ increased pain. Pt requires cues for pushing through UEs during R LE weight bearing. Pt transfers to w/c, sits in chair with cues for turning with use of walker. Pt requires max cueing from PT/ OT for UE use/ directionality/ problem solving during w/c propulsion. Pt requires max cues for motivation/ continuation of task. Pt's 02 at 88%, recovers with deep breaths. Pt pushes self to gym (02 at 90%), completes stance at parallel bars and ambulates 1x with OT w/c to follow. Pt left with PT, all needs met. Education OT Patient Education: Correct positioning, Modified ADL techniques, Purpose of tx/functional activities, Reviewed precautions, Rehab process, Safety issues, Transfer techniques, Use of adapted equipment, W/C management Teaching Recipient: Patient Teaching Methods: Demonstration, Discussion Response to Teaching: Verbalize Understanding, Return Demonstration, Reinfo rcement Needed OT Short Term Goals Short Term Goals Lower body dressin Putting on/taking off footwear: 5 OT Trust Officer Goals Prison Goals Time Frame: March 11, 2020 Eating (QC): 6 Oral Hygiene (QC): 6 Toileting Hygiene (QC): 6 Shower/Bathe Self (QC): 6 Upper Body Dressing (QC): 6 Lower Body Dressing (QC): 6 On/Off Footwear (QC): 6 Additional Goals: 1-Demonstrate ADL Tasks, 2-Verbalize Understanding, 3- ImproveStrength/Ramon 1=Demonstrate adherence to instructed precautions during ADL tasks. 2=Patient will verbalize/demonstrate understanding of assistive devices/modifications for ADL. 3=Patient will improve strength/tolerance for activity to enable patient to perform ADL's. OT Education/Plan Problem List/Assessment Assessment: Decreased Activ Tolerance, Decreased Safety Aware, Dependent Transfers, Impaired Funct Balance, Impaired I ADL's, Impaired Self-Care Skills Discharge Recommendations Plan/Recommendations: Continue POC Equpiment Recommendations-D/C: Extended Bath Bench, Extended Shower Sprayer, Hip Kit Treatment Plan/Plan of Care Treatment,Training & Education: Yes Patient would benefit from OT for education, treatment and training to promote independence in ADL's, mobility, safety and/or upper extremity function for ADL's. Plan of Care: ADL Retraining, Concurrent Therapy, Functional Mobility, Group Exercise/Act as Ind, UE Funct Exercise/Act, W/C Management Training Treatment Duration: March 11, 2020 Frequency: At least 5 of 7 days/Wk (IRF) Estimated Hrs Per Day: 1.5 hours per day Agreement: Yes Rehab Potential: Fair Time/GCodes Start Time: 12:25 Stop Time: 13:50 Total Time Billed (hr/min): 85 Billed Treatment Time OT individual tx session: [id number] (50) Pt seen in recliner chair, agreeable to OT eval/ treat. Pt states pain, though states not severe enough for pain meds, nursing notified. OT/ PT co-treat: [id number] (35) Co-treat rendered due to pt's decreased stren gth/ endurance, dependent transfers, increased pain, decreased safety awareness due to decreased precaution maintenance. OT addresses ADLs, UE strength, and problem solving as PT addresses balance, transfers, and w/c management. 1, EVM (15), ADL 2(35), EX 2(35)= 85 GAVINO LIVINGSTON OTR Feb 26, 2020 14:03
--- NOTE | 2020-02-26 14:39 | NUR ---
PT HAD SCHEDULED LOVENOX EARLIER THIS AM WHILE ON . NOTIFIED PHARMACY
--- NOTE | 2020-02-26 14:44 | Physical Therapy Evaluation ---
PT Evaluation-General Medical Diagnosis Admission Date Feb 26, 2020 at 12:10 Medical Diagnosis: R hip fx; s/p bipolar hip repair Onset Date: Feb 23, 2020 Therapy Diagnosis Therapy Diagnosis: decreased mobility, general weakness Precautions Precautions/Isolations: Fall Prevention, Standard Precautions Weight Bear Status Right Lower Extremity: Right Full Weight Bearing Left Lower Extremity: Left Full Weight Bearing Referral Physician: Gabby Arndt DO Reason for Referral: Evaluation/Treatment Medical History Additional Medical History Parkinson's Current History Pt. fell at home, sustained R femoral neck fracture, s/p R bipolar hip replacement. Reviewed History: Yes Social History Home: Apartment Current Living Status: Alone Entry Into Home: Level Entry PT Steps Into Home: 0 PT Steps Inside Home: 0 Prior Prior Level of Function SCALE: Activities may be completed with or without assistive devices. 6-Duwwxixbki-syyrjzx completes the activity by him/herself with no assistance from a helper. 5-Set-up or Clean-up Assistance-helper sets up or cleans up; patient completes activity. [place] assists only prior to or following the activity. 4-Supervision or Touching Assistance-helper provides verbal cues and/or touching/steadying and/or contact guard assistance as patient completes activity. Assistance may be provided throughout the activity or intermittently. 3-Partial/Moderate Assistance-helper does LESS THAN HALF the effort. [place] lifts, holds or supports trunk or limbs, but provides less than half the effort. 2-Substantial/Maximal Assistance-helper does MORE THAN HALF the effort. [place] lifts or holds trunk or limbs and provides more than half the effort. 8-Zkrczcusz-qxkorp does ALL the effort. Patient does none of the effort to complete the activity. Or, the assistance of 2 or more helpers is required for the patient to complete the activity. If activity was not attempted, code reason: 7-Patient Refused. 9-Not Applicable-not attempted and the patient did not perform the activity before the current illness, exacerbation or injury. 10-Not Attempted due to Environmental Limitations-(lack of equipment, weather restraints, etc.). 88-Not Attempted due to Medical Conditions or Safety Concerns. Bed Mobility: 6 Transfers (B,C,W/C): 6 Gait: 6 Stairs: 9 Wheelchair Mobility: 9 Indoor Mobility (Ambulation): Independent Prior Devices Use: None PT Evaluation-Current Subjective Pt. with OT, states she is very tired. Pt. reports "a little" R proximal hip pain but does not give objective pain rating when asked. During session patient frequently states, "I can't do this, I should have just went home." Pt/Family Goals home Objective Patient Orientation: Person ROM/Strength ROM Upper Extremities See OT ROM Lower Extremities L LE WNL, diminished R LE Strength Upper Extremities See OT Strength Lower Extremities Grossly 4/5 L LE; R LE n/a due to R surgical procedure Integumentary/Posture Integumentary bandage R lateral hip Bowel Incontinence: No Bladder Incontinence: Yes Posture WFL Neuromuscular (Tone, Coordination, Reflexes) unremarkable Sensory Vision: Functional Hearing: Functional Hand Dominance: Right Sensation Right Upper Extremit: Intact Sensation Left Upper Extremity: Intact Sensation Right Lower Extremit: Intact Sensation Left Lower Extremity: Intact Transfers Roll Left to Right (QC): 2 Sit to Lying (QC): 2 Lying to Sitting/Side of Bed(Q: 2 Sit to Stand (QC): 3 Chair/Imi-ob-Xtbpz Xfer(QC): 3 Toilet Transfer (QC): 3 Car Transfer (QC): 88 Gait Does the Patient Walk?: Yes Mode of Locomotion: Walk Anticipated Mode of Locomotion: Walk Walk 10 feet (QC): 3 Walk 50 ft with 2 Turns(QC): 88 Walk 150 ft (QC): 88 Walking 10ft/uneven surface-QC: 88 Distance: 3 x 8 ft in // bars, x 15 ft with FWW Gait Assistive Device: FWW Comments/Gait Description several cues needed for sequence and to use UE's when putting weight on R LE; significant cuing needed for turns Wheelchair Training Does the Pt Use a Wheelchair?: Yes Distance: 100 ft Wheel 50 ft with 2 turns (QC): 3 Wheel 150 ft (QC): 88 Type of Wheelchair: Manual Stairs 1 Step (curb) (QC): 9 4 Steps (QC): 9 12 Steps (QC): 9 Balance Sitting Static: Good Sitting Dynamic: Good Standing Static: Fair Standing Dynamic: Fair Picking up an Object (QC): 88 Treatment gait training, Nustep L2 x 10'. Co-tx with OT x 35' for PT to aide in standing balance and transfers while OT assists with ADLs. Also OT and PT co-treated ambulation in // bars with OT assisting UE placement and strengthening, PT addressing LE gait sequence. Assessment/Needs Pt. is a 69 y.o. female s/p R THR following a fall at home. Pt. presents with decreased mobility and general weakness. Pt. fatigues very quickly with functional activities; O2 sats ranged 88-92% on RA throughout session. Pt. is currently max-mod A with transfers and ambulates with mod A, several cues needed for gait sequencing. Pt. would benefit from skilled PT to improve mobility and strength for return home independently. Rehab Potential: Good PT Service Liaison Representative Goals Prison Goals PT Prison Goals Time Frame: March 11, 2020 Roll Left & Right (QC): 6 Sit to Lying (QC): 6 Lying-Sitting on Side/Bed(QC): 6 Sit to Stand (QC): 6 Chair/Rra-lh-Cudcw Xfer(QC): 6 Toilet Transfer (QC): 6 Car Transfer (QC): 4 Does the Patient Walk: Yes Walk 10 feet (QC): 6 Walk 50ft with 2 Turns (QC): 6 Walk 150 ft (QC): 6 Walking 10ft on Uneven Surface: 4 1 Step (curb) (QC): 9 4 Steps (QC): 9 12 Steps (QC): 9 Picking up an Object (QC): 88 Wheel 50 feet with 2 turns (QC: 9 Wheel 150 feet: 9 PT Plan Problem List Problem List: Activity Tolerance, Functional Strength, Safety, Balance, Gait, Transfer, Bed Mobility, ROM Treatment/Plan Treatment Plan: Continue Plan of Care Treatment Plan: Bed Mobility, Concurrent Therapy, Education, Functional Activity Ramon, Functional Strength, Group Therapy, Gait, Safety, Therapeutic Exercise, Transfers Treatment Duration: March 11, 2020 Frequency: 6 times per week Estimated Hrs Per Day: 1.5 hours per day Patient and/or Family Agrees t: Yes Time/GCodes Time In: 1315 Time Out: 1430 Total Billed Treatment Time: 75 Total Billed Treatment 1, EVH 30', FA 20', GT 15', Ex 10' (co-treat with OT x 35') BHUMI DIAZ PT Feb 26, 2020 14:44
--- NOTE | 2020-02-26 15:09 | ST Cognitive Linguistic Eval ---
Speech Evaluation-General Medical Diagnosis R hip fx; s/p bipolar hip repair Onset Date: Feb 23, 2020 Therapy Diagnosis Therapy Diagnosis: Cognitive-communication Referral Referring Physician: Dr. Arndt Medical History Reviewed History: Yes Social History Current Living Status: Alone Speech PLF-Current Status Prior Level of Function Patient lived at home alone with family nearby for support. Subjective Patient was noted to be impulsive, however she was able to complete the cognitive assessment. Language Eval: Auditory Comprehends Simple Yes/No Ques: Functional Indent/Objects Multiple Prakash: Functional Ident/Pics in Multiple Prakash: Functional Follows 1-Step Commands: Functional Follows Complex Directions: Mild Follows General Conversations: Functional Language Eval: Verbal Language Completes Spontaneous Greeting: Functional Produces Auto, Serial Info: Functional Imitates Simple Words/Phrases: Functional Word Finding: Functional Requests Basic Needs: Functional States Basic Personal Info: Functional Expresses Complex Ideas: Mild Objective Cognitive Domain Attention: WNL Memory: Mild Problem Solving: Mild Executive Functions: Mild Visuospatial Skills: WNL Composite Severity Rating: Mild Clock Drawing Severity Rating: WNL Objective Formal/Standardized Tests [facility] Status ([facility]) Results 23/30, Mild Neurocognitive Disorder range of function Oral Motor/Speech Production Within Normal Limits Impression The patient is a 69 year old woman who was admitted to the ARU s/p right hip fracture. She was given the UMS at bedside with a score of 23/30 obtained. She will receive skilled ST based on her score and difficulty with retention of safety awareness. Speech Patient Assess Expression of Ideas/Wants: Expression (4) Understanding Verbal Content: Usually Understands (3) Brief Interview-Mental Status: Yes Repetition of Three Words: Three (3) Temporal Orientation: Year: Correct (3) Temporal Orientation: Month: Accurate within 5 days(2) Temporal Orientation: Day: Correct (1) Recall : Wear to say "Sock": Yes,after cueing (1) Recall : Color: Yes, after cueing (1) Recall : Bed: Yes, no cue required (2) Memory/Recall Ability: Current season, That he or she is in a hsp/hsp unit Speech Short Term Goals Short Term Goals Short Term Goals 1) Patient will complete memory tasks related to her daily needs at 90% with minimal cues. 1) Patient will complete memory tasks related to her daily needs at 90% with minimal cues. 2) Patient will complete safety awareness tasks related to her daily needs at 90% with minimal cues. 3) Patient will complete problem solving tasks related to her daily needs at 90% with minimal cues. Speech Remote Encoding Center Manager Goals Remote Encoding Center Manager Goals Patient will improve cognitive-communication necessary for safety and daily living tasks with minimal assist. Speech-Plan Patient/Family Goals Patient/Family Goals: Patient plans on returning to her prior living situation upon rehab discharge. Treatment Plan Speech Therapy Treatment Plan: Continue Plan of Care Treatment Duration: March 08, 2020 Frequency: 5 times per week Estimated Hrs Per Day: .5 hour per day Rehab Potential: Good Barriers to Learning: Patient is impulsive, difficulty retaining new information Pt/Family Agrees to Plan: Yes Safety Risks/Education Teaching Recipient: Patient Teaching Methods: Discussion Response to Teaching: Verbalize Understanding Education Topics Provided: Safety within her room Time Speech Therapy Time In: 14:30 Speech Therapy Time Out: 15:00 Total Billed Time: 30 Billed Treatment Time 1AMY BETHANIA ST Feb 26, 2020 15:09
[2020-02-26] MEDS ORDERED: morphine INJ 4 MG/ML 1 ML (VIAL/SYRINGE) IVP PRN (15:30)
[2020-02-26] MEDS ORDERED: ONDANSETRON 4 MG/2 ML (SDV) Z0FRAN IVP PRN (15:30)
[2020-02-26] MEDS ORDERED: ACETAMINOPHEN 325 MG TABLET PO PRN (15:30)
[2020-02-26] MEDS ORDERED: diphenhydrAMINE 50 MG/ML INJ (BENADRYL) IVP PRN (15:30)
[2020-02-26] MEDS: guaiFENesin/CODEINE (ROBITUSSIN AC) 10ML UDC PO PRN (17:13)
[2020-02-26 17:39] VITALS: BP 136/67
--- NOTE | 2020-02-26 17:56 | PM&R Post Admission Assessment ---
PM&R HP Date of Visit: Feb 26, 2020 Time of Visit: 12:30 History of Present Illness CC: Right hip fracture. HPI: This is a 69[address] patient of Dr. Villasenor who presents to inpatient rehab after right hip fracture repair by Dr. Irizarry. 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 She lives at home alone and her children and grandchildren are involved in her care in [place]. She established her neurology care with Dr. Vernon Asher, and she sees him in [place]. Pt reports a few falls in the past and reports she has not had a BM since she arrived at the hospital. Pain is pretty well controlled. Wants to go home as soon as possible, but she did report some congestion and coarse breath sounds were noted, nebuliz er treatments were initiated but she even asked Dr. Villasenor if she had CHF about a year ago because the cough has been progressive. I spoke with Dr. Cast cardiology, ordered an echocardiogram, check BNP, with CBC and CMP to evaluate with volume overload. Will place on telemetry to monitor that aspect. Overall she wants to get therapy done so she can go back to work. Past Ddpepkw-Qfxzqq-Rqwhti Hx Past Med/Social Hx: Reviewed Nursing Past Med/Soc Hx, Reviewed and Corrections made Patient Social History Marrital Status: single Employed/Student: employed Alcohol Use: Denies Use Recreational Drug Use: No Smoking Status: Current Everyday Smoker Type Used: Cigarettes 2nd Hand Smoke Exposure: No Physical Abuse Screen: No Sexual Abuse: No Recent Foreign Travel: No Contact w/other who traveled: No Recent Hopitalizations: No Recent Infectious Disease Expo: No Seasonal Allergies Seasonal Allergies: No Past Medical History Surgeries: Section, Hysterectomy, Orthopedic Currently Using CPAP: No Currently Using BIPAP: No Neurological: Parkinson's Disease Sexually Transmitted Disease: No HIV/AIDS: No History of Blood Disorders: No Adverse Reaction to Blood Nuñez: No Family History Diabetes mellitus 19 FATHER 19 MOTHER Myocardial infarction G8 BROTHER Prior Level of Function Bed Mobility: 6 Transfers: 6 Gait: 6 Stairs: 9 Wheelchair Mobility: 9 Indoor Mobility (Ambulation): Independent Prior Devices Use: None Self Care: Independent Functional Cognition: Independent 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 Drive Self: Yes Current Level of Fuctioning Roll Left to Right: 2 Sit to Lyin Lying to Sitting/Side of Bed: 2 Sit to Stand: 3 Chair/Mvm-if-Wlpbr Xfer: 3 Car Transfer: 88 Does the Patient Walk: Yes Mode of Locomotion: Walk Anticipated Mode of Locomotion: Walk Walk 10 feet: 3 Walk 50 ft with 2 Turns: 88 Walk 150 ft: 88 Walking 10ft on uneven surface: 88 Gait Assistive Device: FWW Does the Pt Use a Wheelchair: Yes Wheelchair Distance: 100 ft Wheel 50 ft with 2 turns: 3 Wheel 150 ft: 88 Type of Wheelchair: Manual 1 Step (curb): 9 4 Steps: 9 12 Steps: 9 Picking up an Object: 88 Eatin Oral Hygiene: 6 Shower/Bathe Self: 3 (Pt able to complete all items with min A (requires assist with BLEs and educated on LHS, cues throughout for maintenance of precautions)) Upper Body Dressin (s/u) Lower Body Dressin (max A prior to education of AEPt completes clothing doffing with cues for precaution maintenance and use of AE, requires cues for use of AE for clothing donning)) On/Off Footwear: 1 (TD prior to AE educationPt educated on use of sock aide, pt completes with min A bilaterally.) Toileting Hygiene: 4 (CGA in stance.) PM&R Allergy/Meds/Data Review Allergies Coded Allergies: monosodium glutamate (Verified Allergy, Unknown, blurry vision , 02/23/20) Home Medications Scheduled Carbidopa/Levodopa (Carbidopa-Levodopa 25-100 Tab), 1 EA PO QID, (Reported) Cephalexin (Cephalexin), 500 MG PO BID Scheduled PRN Aspirin (Aspirin EC), 325 MG PO DAILY PRN for PAIN-MILD (1-4), (Reported) Loratadine (Claritin), 10 MG PO DAILY PRN for ALLERGY SYMPTOMS, (Reported) Current Medications Current Medications Reviewed Review of Systems Constitutional: see HPI, malaise, weakness EENTM: no symptoms reported Respiratory: cough, dyspnea on exertion, short of breath, wheezing Cardiovascular: no symptoms reported Gastrointestinal: constipation Genitourinary: no symptoms reported Musculoskeletal: joint pain Skin: no symptoms reported Psychiatric/Neurological: Anxiety, Depressed All Other Systems Reviewed Negative Unless Noted: Yes Physical Exam Physical Exam Vital Signs Vital Signs - First Documented 02/26/20 12:32 Temp 37.7 Pulse 80 Resp 16 B/P (MAP) 112/51 Pulse Ox 91 O2 Delivery Room Air Capillary Refill : Height, Weight, BMI Height: '" Weight: lbs. oz. kg; 32.24 BMI Method: General Appearance: No Apparent Distress, WD/WN, Chronically ill, Obese Eyes: Bilateral Eye Normal Inspection, Bilateral Eye PERRL HEENT: PERRL/EOMI, Normal ENT Inspection, Pharynx Normal Neck: Full Range of Motion, Normal Inspection, Non Tender, Supple, Carotid Bruit Respiratory: Chest Non Tender, No Accessory Muscle Use, No Respiratory Distress, Decreased Breath Sounds, Wheezing Cardiovascular: Regular Rate, Rhythm, No Edema, No Gallop, No JVD, No Murmur, Normal Peripheral Pulses Gastrointestinal: Normal Bowel Sounds, No Organomegaly, No Pulsatile Mass, Non Tender, Soft Back: Normal Inspection, No CVA Tenderness, No Vertebral Tenderness Extremity: Normal Capillary Refill, Normal Inspection, Normal Range of Motion (except right leg from hip fracture site), Non Tender, No Calf Tenderness, No Pedal Edema Neurologic/Psychiatric: Alert, Oriented x3, No Motor/Sensory Deficits, Normal Mood/Affect Skin: Normal Color, Warm/Dry Lymphatic: No Adenopathy PM&R Medical Assessment & Plan REHAB/MEDICAL ASSESSMENT AND PLAN: REHAB IMPAIRMENT GROUP: Right hip fracture with PD ETIOLOGIC DIAGNOSIS: Right hip fracture with PD The comorbidities that impact the patients function and/or functional outcome by: active wheezing undergoing cardiology evaluation with active smoking and PD at risk for falls REHAB PLAN: The patient is being admitted to our comprehensive inpatient rehabilitation facility and can tolerate the intensity of service consisting of at least: 180 minutes of therapy a day, 5 out of 7 days a week Rehab treatment will consist of: PT OT will focus on improving right leg function and prevent falls from PD and recover enough to return home to live independently The patient/family has a good understanding of our discharge process and will benefit from an interdisciplinary inpatient rehabilitation program. The patient has potential to make improvement and is in need of at least two of the following multidisciplinary therapies including but not limited to physical, occupational, speech, and prosthetics and orthotics. Additionally the patient will need services from respiratory, nutritional services, wound care, psychology, etc. (Customize this to each patient). Given the patients complex condition and risk of further medical complications, rehabilitation services cannot be safely or effectively provided at a lower level of care such as a detention facility. BARRIERS TO DISCHARGE: Lives alone with PD with fall risk ESTIMATED LOS: 10 days DISPOSITION: [Home with HH RELEVANT CHANGES SINCE PREADMISSION SCREENING: I have compared the patients medical and functional status at the time of the preadmission screening and there are: no changes PROGNOSIS: Good REHABILITATION GOALS: 1.PT OT will focus on improving right leg function and prevent falls from PD and recover enough to return home to live independently All the above goals were reviewed with the patient and he/she is in agreement. By signing this document, I acknowledge that I have personally performed a full physical examination on this patient within 24 hours of admission to this inpatient rehabilitation facility and have determined the patient to be able to tolerate the above course of treatment at an intensive level for a reasonable period of time. I will be completing a detailed individualized Plan of Care for this patient by day #4 of the patients stay based upon the Preadmission Screen, the Post-Admission Evaluation, and the therapy evaluations. Admission Dx/Comorbidities: (1) UTI (urinary tract infection) ICD Codes: N39.0 - Urinary tract infection, site not specified (2) Parkinson disease ICD Codes: G20 - Parkinson's disease (3) Smoker ICD Codes: F17.200 - Nicotine dependence, unspecified, uncomplicated (4) Wheezing ICD Codes: R06.2 - Wheezing (5) Congestion of upper respiratory tract ICD Codes: J98.8 - Other specified respiratory disorders (6) Constipation ICD Codes: K59.00 - Constipation, unspecified (7) Fracture of hip, right, closed Status: Acute ICD Codes: S72.001A - Fracture of unspecified part of neck of right femur, initial encounter for closed fracture (8) Fall Status: Acute ICD Codes: W19.XXXA - Unspecified fall, initial encounter Copy Copies To 1: ALEX VILLASENOR MD Assessment/Plan Assessment and Plan Assess & Plan/Chief Complaint Assessment: s/p right hip fracture with uncomplicated repair by Dr Irizarry UTI PD Smoker Falls Wheezing Plan: Lovenox Fall risk IRF protocol Home meds Cardiology evaluation Nebs O2 SHAYAN LI DO Feb 26, 2020 17:56
[2020-02-26] MEDS: DOCUSATE SODIUM 100 MG (COLACE) CAP PO SCH (20:23)
[2020-02-26] MEDS: CEPHALEXIN 250 MG (KEFLEX) CAP PO SCH (20:23)
[2020-02-26] MEDS: polyethylene glycoL POWDER 17 GM (MIRALAX) PACK PO SCH (20:24)
[2020-02-26] MEDS: SENNA W/DOCUSATE (SENOKOT S) TABLET PO SCH (20:24)
[2020-02-26] MEDS: SENNOSIDES 8.6 MG (SENOKOT) TAB PO SCH (20:24)
[2020-02-26] MEDS: CATHETER FLUSH 10 ML SYR IV SCH (20:24)
--- NOTE | 2020-02-26 20:30 | NUR ---
This nurse spoke to patient about smoking cessation and offered nicotine patch if patient would like to have one ordered for her. Patient declined.
[2020-02-26] MEDS: HYDROcodone/APAP 7.5 MG/325 MG (LORTAB, LORCET PLUS) TABLET PO PRN (20:49)
[2020-02-26] MEDS: TEMAZEPAM 15 MG (RESTORIL) CAP PO PRN (20:50)
[2020-02-26] MEDS ORDERED: LORATADINE (CLARITIN) 10 MG TAB PO PRN (21:15)
[2020-02-26] MEDS: MONTELUKAST 10 MG (SINGULAIR) TAB PO SCH (21:43)
[2020-02-27 05:09] LABS: BASOPHILS % (AUTO) 0 % (0-10); EOSINOPHILS # (AUTO) 0.4 10^3/uL (0.0-0.3); EOSINOPHILS % (AUTO) 4 % (0-10); HEMATOCRIT 32 % (35-52); HEMOGLOBIN 10.2 G/DL (11.5-16.0); LYMPHOCYTES # (AUTO) 3.4 X 10^3 (1.0-4.0); LYMPHOCYTES % (AUTO) 33 % (12-44); MEAN CORPUSCULAR HEMOGLOBIN 27 PG (25-34); MEAN CORPUSCULAR HGB CONC 32 G/DL (32-36); MEAN CORPUSCULAR VOLUME 86 FL (80-99); MEAN PLATELET VOLUME 10.4 FL (7.4-10.4); MONOCYTES # (AUTO) 1.2 X 10^3 (0.0-1.0); MONOCYTES % (AUTO) 12 % (0-12); NEUTROPHILS # (AUTO) 5.2 X 10^3 (1.8-7.8); NEUTROPHILS % (AUTO) 51 % (42-75); PLATELET COUNT 216 10^3/uL (130-400); RED CELL DISTRIBUTION WIDTH 13.5 % (10.0-14.5); WHITE BLOOD COUNT 10.2 10^3/uL (4.3-11.0)
[2020-02-27 05:17] LABS: ALBUMIN 3.5 GM/DL (3.2-4.5); CHLORIDE 104 MMOL/L (98-107); POTASSIUM 3.8 MMOL/L (3.6-5.0); SODIUM 139 MMOL/L (135-145)
[2020-02-27 05:18] LABS: CALCIUM 8.8 MG/DL (8.5-10.1)
[2020-02-27 05:20] LABS: GLUCOSE 121 MG/DL (70-105); TOTAL PROTEIN 6.1 GM/DL (6.4-8.2)
[2020-02-27 05:21] LABS: BILIRUBIN,TOTAL 0.8 MG/DL (0.1-1.0); CARBON DIOXIDE 24 MMOL/L (21-32)
[2020-02-27 05:23] LABS: ALKALINE PHOSPHATASE 110 U/L (40-136); CREATININE SERUM 0.63 MG/DL (0.60-1.30); GFR ESTIMATED > 60
[2020-02-27 05:24] LABS: BUN/CREATININE RATIO 16
[2020-02-27 05:26] LABS: ALANINE AMINOTRANSFERASE 63 U/L (0-55)
[2020-02-27 05:43] VITALS: BP 135/76
[2020-02-27] MEDS: CATHETER FLUSH 10 ML SYR IV SCH ×3 (06:05→21:03)
[2020-02-27] MEDS: MULTIVIT W/MINERALS TAB (THERAGRAN M) PO SCH (06:06)
[2020-02-27] MEDS: HYDROcodone/APAP 7.5 MG/325 MG (LORTAB, LORCET PLUS) TABLET PO PRN ×4 (06:58→21:02)
--- NOTE | 2020-02-27 07:58 | Speech Therapy Daily Note ---
Speech Daily Progress Note Subjective Date Seen by Provider: Feb 27, 2020 Time Seen by Provider: 00:30 Patient was dozing in her chair following breakfast when I entered her room. Objective Patient completed a series of q/a related to her daily routine/needs with 75% accuracy given moderate cues/repetitions. Assessment Assessment Current Status: Fair Progress Treatment Plan Continue Plan of Care Speech Short Term Goals Short Term Goals Short Term Goals 1) Patient will complete memory tasks related to her daily needs at 90% with minimal cues. 1) Patient will complete memory tasks related to her daily needs at 90% with minimal cues. 2) Patient will complete safety awareness tasks related to her daily needs at 90% with minimal cues. 3) Patient will complete problem solving tasks related to her daily needs at 90% with minimal cues. Speech Correction Goals Correction Goals Patient will improve cognitive-communication necessary for safety and daily living tasks with minimal assist. Speech-Plan Patient/Family Goals Patient/Family Goals: Patient plans on returning to her home upon rehab discharge. She has family support close by her home. Treatment Plan Speech Therapy Treatment Plan: Continue Plan of Care Treatment Duration: March 08, 2020 Frequency: 5 times per week Estimated Hrs Per Day: .5 hour per day Rehab Potential: Good Barriers to Learning: Patient's cognitive deficits, recent medical status Pt/Family Agrees to Plan: Yes Safety Risks/Education Teaching Recipient: Patient Teaching Methods: Demonstration Response to Teaching: Verbalize Understanding, Return Demonstration Education Topics Provided: Continued safety within her room and communication of wants/needs Time Speech Therapy Time In: 07:45 Speech Therapy Time Out: 08:15 Total Billed Time: 30 Billed Treatment Time 1, ANTONIA Ames Feb 27, 2020 07:58
[2020-02-27] MEDS: SINEMET 25/100 (CARBIDOPA/LEVODOPA) TAB PO SCH ×4 (09:00→21:02)
--- NOTE | 2020-02-27 09:06 | Occupational Ther Daily Note ---
OT Current Status-Daily Note Subjective 0815-0915Pt seen in recliner chair. Pt hesitantly agreeable to OT tx session, states decreased pain since yesterday. Declines ADLs, states she urinated through the night and "soaked the bed." Pt has same clothes on from yesterday's session, pt declines changing, stating she only soaked her briefs. [id number]: Pt seen in w/c post-PT session. Pt hesitantly agreeable to OT tx session, states mild pain in hip. Mental Status/Objective Patient Orientation: Person, Place, Situation ADL-Treatment Therapy Code Descriptions/Definitions Functional [place] Measure: 0=Not Assessed/NA 4=Minimal Assistance 1=Total Assistance 5=Supervision or Setup 2=Maximal Assistance 6=Modified [place] 3=Moderate Assistance 7=Complete IndependenceSCALE: Activities may be completed with or without assistive devices. 8-Emsdmviowm-arozgrp completes the activity by him/herself with no assistance from a helper. 5-Set-up or Clean-up Assistance-helper sets up or cleans up; patient completes activity. Cisco assists only prior to or following the activity. 4-Supervision or Touching Assistance-helper provides verbal cues and/or touching/steadying and/or contact guard assistance as patient completes activity. Assistance may be provided throughout the activity or intermittently. 3-Partial/Moderate Assistance-helper does LESS THAN HALF the effort. Cisco lifts, holds or supports trunk or limbs, but provides less than half the effort. 2-Substantial/Maximal Assistance-helper does MORE THAN HALF the effort. Cisco lifts or holds trunk or limbs and provides more than half the effort. 2-Sgsitquch-fcdlbm does ALL the effort. Patient does none of the effort to complete the activity. Or, the assistance of 2 or more helpers is required for the patient to complete the activity. If activity was not attempted, code reason: 7-Patient Refused. 9-Not Applicable-not attempted and the patient did not perform the activity before the current illness, exacerbation or injury. 10-Not Attempted due to Environmental Limitations-(lack of equipment, weather restraints, etc.). 88-Not Attempted due to Medical Conditions or Safety Concerns. Eating (QC): 6 Oral Hygiene (QC): 7 Shower/Bathe Self (QC): 7 Upper Body Dressing (QC): 7 Lower Body Dressing (QC): 3 (min A due to cues for AE use and pant leg getting twisted) On/Off Footwear: 7 Toileting Hygiene (QC): 4 (SBA cher hygiene) Toilet Transfer (QC): 3 (CGA with use of gbs to lower to standard toilet, min A sit to stand from toilet.) Other Treatment [id number] (60) Pt sit to stand with min A this am. Ambulates with 2WW to w/c, pushed to therapy gym. Pt able to state 2/3 precautions, gives example of not bending past knees. Pt educated on importance of continued UE strengthening for assist standing and with walker mobility. Pt completes UE strengthening with 6# weighted bar, core strengthening, and balance task EOM. Pt completes with increased cues for continuation of task due to fatigue/ motivation. Pt sit to stand x5 during session with CGA, sits with control 4/5x (requires each time to sit with control/ utilize triceps). Pt stands at table top, completing crossing midline/ UE movement/ balance task with arm arc. Pt stands with CGA, able to bring BUEs off walker and reach across body with continued CGA. Pt requires multiple breaks due to fatigue. Pt states she has not exercised since she was 20, states, "I should have saw this coming, I placed a cushion in the chair because I was having a hard time getting up." Pt educated on importance of continued therapy for strengthening and safe return home. Pt returns to room, sits in recliner, declining toileting once more, all needs met, call light in reach. [id number] (30): Pt completes UE theraband ex with use of handout and cues for positioning. Pt requests bathroom, brief soiled with urine. Pt completes toilet transfer, doffs pants completely with use of dressing stick (cues for use). Pt becomes increasingly more frustrated with tasks, stating when she gets home she "wont' deal with this (AE)". Pt educated on importance of precautions/ use of AE. Pt states she knows. Pt completes donning briefs/ pants with min A and need for cues for AE use/ requirement for patience for self. pt acknowledges, returns to recliner (walks with 2WW and CGA). Pt states she feels accomplished. Pt left in recliner with all needs met, call light in reach. Education OT Patient Education: Correct positioning, Exercise program, Home exercise program, Modified ADL techniques, Reviewed precautions, Rehab process, Safety issues, Transfer techniques, Use of adapted equipment Teaching Recipient: Patient Teaching Methods: Demonstration, Discussion Response to Teaching: Verbalize Understanding, Return Demonstration OT Short Term Goals Short Term Goals Lower body dressin Putting on/taking off footwear: 5 OT Dental Associate Goals Dental Associate Goals Time Frame: March 11, 2020 Eating (QC): 6 Oral Hygiene (QC): 6 Toileting Hygiene (QC): 6 Shower/Bathe Self (QC): 6 Upper Body Dressing (QC): 6 Lower Body Dressing (QC): 6 On/Off Footwear (QC): 6 Additional Goals: 1-Demonstrate ADL Tasks, 2-Verbalize Understanding, 3- ImproveStrength/Ramon 1=Demonstrate adherence to instructed precautions during ADL tasks. 2=Patient will verbalize/demonstrate understanding of assistive devices/modifications for ADL. 3=Patient will improve strength/tolerance for activity to enable patient to perform ADL's. OT Education/Plan Problem List/Assessment Assessment: Decreased Activ Tolerance, Decreased UE Strength, Dependent Transfers, Impaired Funct Balance, Impaired I ADL's, Impaired Self-Care Skills Discharge Recommendations Plan/Recommendations: Continue POC Treatment Plan/Plan of Care Treatment,Training & Education: Yes Patient would benefit from OT for education, treatment and training to promote independence in ADL's, mobility, safety and/or upper extremity function for ADL's. Plan of Care: ADL Retraining, Concurrent Therapy, Functional Mobility, Group Exercise/Act as Ind, UE Funct Exercise/Act, W/C Management Training Treatment Duration: March 11, 2020 Frequency: At least 5 of 7 days/Wk (IRF) Estimated Hrs Per Day: 1.5 hours per day Agreement: Yes Rehab Potential: Good Time/GCodes Start Time: 08:15 (1330) Stop Time: 09:15 (1400) Total Time Billed (hr/min): 90 Billed Treatment Time 2855-1580: 1, EX 4 (60) 6117-1341: 1, ADL 2 (30) GAVINO LIVINGSTON OTR Feb 27, 2020 09:06
[2020-02-27] MEDS: ASPIRIN E.C. 81 MG (ECOTRIN) TAB PO SCH (09:10)
[2020-02-27] MEDS: SENNOSIDES 8.6 MG (SENOKOT) TAB PO SCH ×2 (09:10→21:01)
[2020-02-27] MEDS: CEPHALEXIN 250 MG (KEFLEX) CAP PO SCH ×2 (09:10→21:01)
[2020-02-27] MEDS: DOCUSATE SODIUM 100 MG (COLACE) CAP PO SCH ×2 (09:10→21:01)
[2020-02-27] MEDS: SENNA W/DOCUSATE (SENOKOT S) TABLET PO SCH ×2 (09:10→21:01)
[2020-02-27] MEDS: polyethylene glycoL POWDER 17 GM (MIRALAX) PACK PO SCH ×2 (09:11→21:04)
[2020-02-27] MEDS: ENOXAPARIN 40 MG/0.4 ML (LOVENOX) SYR SC SCH (09:11)
--- NOTE | 2020-02-27 09:27 | Progress Note ---
Standard Progress Note Progress Notes/Assess & Plan Date Seen by a Provider: Feb 27, 2020 Time Seen by a Provider: 09:26 Progress/Assessment & Plan no complaints Vital Signs Date Time Temp Pulse Resp B/P (MAP) Pulse Ox O2 Delivery O2 Flow Rate FiO2 02/27/20 05:43 37.0 74 18 135/76 (95) 93 Room Air 02/26/20 21:00 Room Air 02/26/20 17:39 37.6 80 18 136/67 (90) 90 Room Air 02/26/20 12:55 Room Air 02/26/20 12:32 37.7 80 16 112/51 91 Room Air I & O 02/27/20 07:00 Intake Total 350 ml Balance 350 ml Laboratory Tests Test 02/27/20 04:56 Range/Units White Blood Count 10.2 4.3-11.0 10^3/uL Red Blood Count 3.72 L 4.35-5.85 10^6/uL Hemoglobin 10.2 L 11.5-16.0 G/DL Hematocrit 32 L 35-52 % Mean Corpuscular Volume 86 80-99 FL Mean Corpuscular Hemoglobin 27 25-34 PG Mean Corpuscular Hemoglobin Concent 32 32-36 G/DL Red Cell Distribution Width 13.5 10.0-14.5 % Platelet Count 216 130-400 10^3/uL Mean Platelet Volume 10.4 7.4-10.4 FL Neutrophils (%) (Auto) 51 42-75 % Lymphocytes (%) (Auto) 33 12-44 % Monocytes (%) (Auto) 12 0-12 % Eosinophils (%) (Auto) 4 0-10 % Basophils (%) (Auto) 0 0-10 % Neutrophils # (Auto) 5.2 1.8-7.8 X 10^3 Lymphocytes # (Auto) 3.4 1.0-4.0 X 10^3 Monocytes # (Auto) 1.2 H 0.0-1.0 X 10^3 Eosinophils # (Auto) 0.4 H 0.0-0.3 10^3/uL Basophils # (Auto) 0.0 0.0-0.1 10^3/uL Sodium Level 139 135-145 MMOL/L Potassium Level 3.8 3.6-5.0 MMOL/L Chloride Level 104 98-107 MMOL/L Carbon Dioxide Level 24 21-32 MMOL/L Anion Gap 11 5-14 MMOL/L Blood Urea Nitrogen 10 7-18 MG/DL Creatinine 0.63 0.60-1.30 MG/DL Estimat Glomerular Filtration Rate > 60 BUN/Creatinine Ratio 16 Glucose Level 121 H 70-105 MG/DL Calcium Level 8.8 8.5-10.1 MG/DL Corrected Calcium 9.2 8.5-10.1 MG/DL Total Bilirubin 0.8 0.1-1.0 MG/DL Aspartate Amino Transf (AST/SGOT) 59 H 5-34 U/L Alanine Aminotransferase (ALT/SGPT) 63 H 0-55 U/L Alkaline Phosphatase 110 40-136 U/L Total Protein 6.1 L 6.4-8.2 GM/DL Albumin 3.5 3.2-4.5 GM/DL able to perform SLR. No calf tenderness s/p R hip bipolar continue PT/OT PERI TELLES MD Feb 27, 2020 09:27
--- NOTE | 2020-02-27 09:32 | Cardiology Progress Note ---
Subjective Date Seen by Provider: Feb 27, 2020 Time Seen by Provider: 09:30 Subjective/Events-last exam Patient is sitting up in chair. C/o right hip pain. Denies any chest pain or dyspnea. Review of Systems General: No Chills, No Night Sweats; Fatigue; No Malaise, No Appetite, No Other HEENT: No Head Aches, No Visual Changes, No Eye Pain, No Ear Pain, No Dysphasia, No Sinus Congestion, No Post Nasal Drip, No Sore Throat, No Other Pulmonary: Dyspnea; No Cough, No Pleuritic Chest Pain, No Other Cardiovascular: No: Chest Pain, Palpitations, Orthopnea, Paroxysmal Noc. Dyspnea, Edema, Lt Headedness, Other Objective-Cardiology Exam Last Set of Vital Signs Vital Signs 02/27/20 05:43 Temp 37.0 Pulse 74 Resp 18 B/P (MAP) 135/76 (95) Pulse Ox 93 O2 Delivery Room Air Capillary Refill : Less Than 3 SecondsLess Than 3 Seconds I&O Intake and Output 02/27/20 00:00 Daily Weight Change No General: Alert, Oriented X3, Cooperative HEENT: Atraumatic, PERRLA Neck: Supple, No JVD, No Thyromegaly Lungs: Other (inspiratory wheezing) Heart: Regular Rate, Normal S1, Normal S2, No Murmurs Abdomen: Normal Bowel Sounds, Soft, No Tenderness Extremities: No Clubbing, No Cyanosis, No Edema Skin: No Rashes, No Significant Lesion Neuro: Normal Speech, Cranial Nerves 3-12 NL Psych/Mental Status: Mental Status NL, Mood NL Results Lab Laboratory Tests 02/27/20 04:56 A/P-Cardiology Admission Diagnosis Right hip fx Dyspnea Palpitations Tobaccoism Assessment/Plan Right hip fracture, s/p repair on 02/24/2020, continue with PT/OT Dyspnea, reports chronic dyspnea for past several years, slight increase in dyspnea over the past month, probable underlying COPD. 2D Echo done yesterday revealed grade I diastolic dysfunction, EF 55-60%, PA 25mmHg. Palpitations, occurring infrequently, continue to monitor. Tobaccoism, educated on the importance of smoking cessation. Parkinsons, management per PCP. UTI- continue on antibiotic, management per PCP Patient was seen and evaluated with Vale, examination performed, management plan was discussed, agree with the current scribed note, I made few changes to the note using Italic font Patient was sitting at bedside, comfortable, denied any new complaint Her breathing is better Generalized weakness receiving physical therapy Clinical Quality Measures DVT/VTE Risk/Contraindication: Risk Factor Score Per Nursin RFS Level Per Nursing on Admit: 4+=Very High VALE CEJA Feb 27, 2020 09:31 LAURYN GUERRERO MD Feb 27, 2020 13:18
--- NOTE | 2020-02-27 09:50 | PM&R Progress Note ---
Subjective HPI/CC On Admission Date Seen by Provider: Feb 27, 2020 Time Seen by Provider: 09:45 Subjective/Events-last exam Pt doing pretty well Wheezing continues Singulair started yesterday Duonebs TID scheduled Pain is much improved of the right hip Overall feels pretty good CHF workup was thus negative Likely COPD from smoking and I did talk to her about that Conferred with RN Reviewed therapy notes Checked meds and labs Review of Systems Pulmonary: Dyspnea, Cough Musculoskeletal: leg pain Objective Exam Vital Signs Vital Signs Date Time Temp Pulse Resp B/P (MAP) Pulse Ox O2 Delivery O2 Flow Rate FiO2 02/28/20 06:09 37.6 72 18 123/70 (87) 95 Room Air Capillary Refill : Less Than 3 SecondsLess Than 3 Seconds General Appearance: No Apparent Distress, WD/WN, Chronically ill, Obese HEENT: PERRL/EOMI, Normal ENT Inspection, Pharynx Normal Neck: Full Range of Motion, Normal Inspection, Non Tender, Supple, Carotid Bruit Respiratory: Chest Non Tender, No Accessory Muscle Use, No Respiratory Distress, Decreased Breath Sounds, Wheezing Cardiovascular: Regular Rate, Rhythm, No Edema, No Gallop, No JVD, No Murmur, Normal Peripheral Pulses Gastrointestinal: Normal Bowel Sounds, No Organomegaly, No Pulsatile Mass, Non Tender, Soft Back: Normal Inspection, No CVA Tenderness, No Vertebral Tenderness Extremity: Normal Capillary Refill, Normal Inspection, Normal Range of Motion (except right leg from hip fracture site), Non Tender, No Calf Tenderness, No Pedal Edema Neurologic/Psychiatric: Alert, Oriented x3, No Motor/Sensory Deficits, Normal Mood/Affect Skin: Normal Color, Warm/Dry Lymphatic: No Adenopathy Results/Procedures Lab Patient resulted labs reviewed. FIM Transfers Therapy Code Descriptions/Definitions Functional [place] Measure: 0=Not Assessed/NA 4=Minimal Assistance 1=Total Assistance 5=Supervision or Setup 2=Maximal Assistance 6=Modified [place] 3=Moderate Assistance 7=Complete IndependenceSCALE: Activities may be completed with or without assistive devices. 7-Axefuqnzye-fnwpydx completes the activity by him/herself with no assistance from a helper. 5-Set-up or Clean-up Assistance-helper sets up or cleans up; patient completes activity. [place] assists only prior to or following the activity. 4-Supervision or Touching Assistance-helper provides verbal cues and/or touchin g/steadying and/or contact guard assistance as patient completes activity. Assistance may be provided throughout the activity or intermittently. 3-Partial/Moderate Assistance-helper does LESS THAN HALF the effort. [place] lifts, holds or supports trunk or limbs, but provides less than half the effort. 2-Substantial/Maximal Assistance-helper does MORE THAN HALF the effort. [place] lifts or holds trunk or limbs and provides more than half the effort. 8-Rzzuhguxb-eyiwwy does ALL the effort. Patient does none of the effort to complete the activity. Or, the assistance of 2 or more helpers is required for the patient to complete the activity. If activity was not attempted, code reason: 7-Patient Refused. 9-Not Applicable-not attempted and the patient did not perform the activity before the current illness, exacerbation or injury. 10-Not Attempted due to Environmental Limitations-(lack of equipment, weather restraints, etc.). 88-Not Attempted due to Medical Conditions or Safety Concerns. Roll Left to Right (QC): 2 Sit to Lying (QC): 2 Sit to Stand (QC): 3 Chair/Bfa-oo-Vvieu Xfer(QC): 3 Car Transfer (QC): 88 Gait Training Does the Patient Walk?: Yes Walk 10 feet (QC): 3 Walk 50 ft with 2 Turns(QC): 88 Walk 150 ft (QC): 88 Walking 10ft/uneven surface-QC: 88 Gait Assistive Device: FWW Wheelchair Training Does the Pt Use a Wheelchair?: Yes Distance: 100 ft Wheel 50 ft with 2 turns (QC): 3 Wheel 150 ft (QC): 88 Type of Wheelchair: Manual Stair Training 1 Step (curb) (QC): 9 4 Steps (QC): 9 12 Steps (QC): 9 Balance Picking up an Object (QC): 88 ADL-Treatment Eating (QC): 6 Oral Hygiene (QC): 7 Shower/Bathe Self (QC): 7 Upper Body Dressing (QC): 7 Lower Body Dressing (QC): 7 On/Off Footwear (QC): 7 Toileting Hygiene (QC): 7 Toilet Transfer (QC): 7 Assessment/Plan Assessment and Plan Assess & Plan/Chief Complaint Assessment: s/p right hip fracture with uncomplicated repair by Dr Irizarry UTI PD Smoker Falls Wheezing Plan: Lovenox Fall risk IRF protocol Home meds Cardiology evaluation Nebs O2 ICS (1) UTI (urinary tract infection) (2) Parkinson disease (3) Smoker (4) Wheezing (5) Congestion of upper respiratory tract (6) Constipation (7) Fracture of hip, right, closed Status: Acute (8) Fall Status: Acute SHAYAN LI DO Feb 27, 2020 09:50
--- NOTE | 2020-02-27 09:54 | NUR ---
THE PT TRANSFERRED TO IRF FROM 4TH FLOOR - I COMPLETED THE MED REC ON 02-26-2020 BEFORE THE PT WAS TRANSFERRED. THEN WHEN THE PT HAD AN IRF ACCOUNT I WAS ABLE TO REVIEW ALL THE MEDICATIONS SO THEY COULD BE ORDERED. TODAY I WENT BACK AND TOOK OF KEFLEX SINCE THE PT WAS NOT TAKING BEFORE HER HOSPITALIZATION.
--- NOTE | 2020-02-27 10:41 | Physical Therapy Daily Note ---
PT Daily Note-Current Subjective States that she is already worn out from OT. Pain Numeric Pain Scale: 7 Location: Right Location Body Site: Hip Transfers SCALE: Activities may be completed with or without assistive devices. 5-Xkgnstmlnq-futsrqz completes the activity by him/herself with no assistance from a helper. 5-Set-up or Clean-up Assistance-helper sets up or cleans up; patient completes activity. [place] assists only prior to or following the activity. 4-Supervision or Touching Assistance-helper provides verbal cues and/or touching/steadying and/or contact guard assistance as patient completes activity. Assistance may be provided throughout the activity or intermittently. 3-Partial/Moderate Assistance-helper does LESS THAN HALF the effort. [place] lifts, holds or supports trunk or limbs, but provides less than half the effort. 2-Substantial/Maximal Assistance-helper does MORE THAN HALF the effort. [place] lifts or holds trunk or limbs and provides more than half the effort. 2-Keplqycmp-yncsjr does ALL the effort. Patient does none of the effort to complete the activity. Or, the assistance of 2 or more helpers is required for the patient to complete the activity. If activity was not attempted, code reason: 7-Patient Refused. 9-Not Applicable-not attempted and the patient did not perform the activity before the current illness, exacerbation or injury. 10-Not Attempted due to Environmental Limitations-(lack of equipment, weather restraints, etc.). 88-Not Attempted due to Medical Conditions or Safety Concerns. Sit to Stand (QC): 4 Weight Bearing Right Lower Extremity: Right Full Weight Bearing Left Lower Extremity: Left Full Weight Bearing Gait Training Does the Patient Walk?: Yes Distance: 40' x 1, 30' x 2 Walk 10 feet (QC): 4 Gait Persons Needed: 1 Gait Assistive Device: FWW The patient has considerable antalgia and difficulty with right LE weightbearing. Exercises Seated Therapy Exercises: LE Protocol Seated Reps: 20 Standing: Sit to Stand Standing Reps: 5 Assessment Current Status: Excellent Progress The patient did much better with gait today. PT Brothel Keeper Goals Brothel Keeper Goals PT Custodial Goals Time Frame: March 11, 2020 Roll Left & Right (QC): 6 Sit to Lying (QC): 6 Lying-Sitting on Side/Bed(QC): 6 Sit to Stand (QC): 6 Chair/Fem-pt-Wrbvt Xfer(QC): 6 Toilet Transfer (QC): 6 Car Transfer (QC): 4 Does the Patient Walk: Yes Walk 10 feet (QC): 6 Walk 50ft with 2 Turns (QC): 6 Walk 150 ft (QC): 6 Walking 10ft on Uneven Surface: 4 1 Step (curb) (QC): 9 4 Steps (QC): 9 12 Steps (QC): 9 Picking up an Object (QC): 88 Wheel 50 feet with 2 turns (QC: 9 Wheel 150 feet: 9 PT Plan Treatment/Plan Treatment Plan: Continue Plan of Care Treatment Plan: Bed Mobility, Concurrent Therapy, Education, Functional Activity Ramon, Functional Strength, Group Therapy, Gait, Safety, Therapeutic Exercise, Transfers Treatment Duration: March 11, 2020 Frequency: 6 times per week Estimated Hrs Per Day: 1.5 hours per day Patient and/or Family Agrees t: Yes Time/GCodes Time In: 0940 Time Out: 1030 Total Billed Treatment Time: 50 Total Billed Treatment 1, 20' GT, 30' EX RODOLFO WATT PT Feb 27, 2020 10:41
[2020-02-27] MEDS: RT-ALBUTEROL/IPRATROPIUM 3 ML (DUONEB) VIAL INH SCH ×3 (11:24→18:55)
--- NOTE | 2020-02-27 13:41 | NUR ---
CM/SS ADMISSION Patient admitted to ARU from [facility] for right hip fracture, post surgical repair. Other comorbidities, in part, are Parkinsons Disease, tobaccoism, wheezing/respiratory. 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 She did try to ambulate with a walker for a few hours thinking perhaps it wasn't broken and she could exercise out the pain. PCP: Dr. Eleazar Chisholm PHARMACY: [facility] INSURANCE: Medicare, [employer] DME: Patient does not personally have any DME, has not been needed. However, she states that she had a collection of DME at the housing complex from residents who have left items, like FWW, wheelchair, stool riser. Diesel Tractor Engine Mechanic advised that OT would likely recommend hip kit and she indicated her daughter that resides in [facility] could get that for her at [facility]. BARRIERS TO DISCHARGE: No blatant barriers other than patient resides alone and is fiercely independent. She verbalized she wants to return home and back to work as before as soon as able. She does have Parkinson's diagnosis but apparently has remained independent and functional thus far. Barriers will be her physical recovery in general. CONTACTS: Patient has two daughters, one local and one in [place], [place]. Wen Dorsey, D[place] [address] [place] [address] Wen has two children, 1 son, 1 daughter, grandchildren to patient. Esther Pollard (rebecca King), and her Isma Greg [place] No children Patient understood the purpose and process of the weekly team conference. Continue intermittent review of patient's progress relative to post hospital care plan.
--- NOTE | 2020-02-27 14:26 | Physical Therapy Daily Note ---
PT Daily Note-Current Subjective States that she is sore after this morning's PT. Transfers SCALE: Activities may be completed with or without assistive devices. 6-Vziwcburgz-rwrciko completes the activity by him/herself with no assistance from a helper. 5-Set-up or Clean-up Assistance-helper sets up or cleans up; patient completes activity. [place] assists only prior to or following the activity. 4-Supervision or Touching Assistance-helper provides verbal cues and/or touching/steadying and/or contact guard assistance as patient completes activity. Assistance may be provided throughout the activity or intermittently. 3-Partial/Moderate Assistance-helper does LESS THAN HALF the effort. [place] lifts, holds or supports trunk or limbs, but provides less than half the effort. 2-Substantial/Maximal Assistance-helper does MORE THAN HALF the effort. [place] lifts or holds trunk or limbs and provides more than half the effort. 2-Qnjjyobyz-tgtcgn does ALL the effort. Patient does none of the effort to complete the activity. Or, the assistance of 2 or more helpers is required for the patient to complete the activity. If activity was not attempted, code reason: 7-Patient Refused. 9-Not Applicable-not attempted and the patient did not perform the activity before the current illness, exacerbation or injury. 10-Not Attempted due to Environmental Limitations-(lack of equipment, weather restraints, etc.). 88-Not Attempted due to Medical Conditions or Safety Concerns. Weight Bearing Right Lower Extremity: Right Full Weight Bearing Left Lower Extremity: Left Full Weight Bearing Exercises Seated Therapy Exercises: LE Protocol Seated Reps: 10 NuStep Minutes: 15 NuStep Workload: 5 Assessment Current Status: Excellent Progress The patient continues to fatigue quickly. PT Biomedical Engineering Technician Goals Residential Goals PT Residential Goals Time Frame: March 11, 2020 Roll Left & Right (QC): 6 Sit to Lying (QC): 6 Lying-Sitting on Side/Bed(QC): 6 Sit to Stand (QC): 6 Chair/Rsu-xf-Tghor Xfer(QC): 6 Toilet Transfer (QC): 6 Car Transfer (QC): 4 Does the Patient Walk: Yes Walk 10 feet (QC): 6 Walk 50ft with 2 Turns (QC): 6 Walk 150 ft (QC): 6 Walking 10ft on Uneven Surface: 4 1 Step (curb) (QC): 9 4 Steps (QC): 9 12 Steps (QC): 9 Picking up an Object (QC): 88 Wheel 50 feet with 2 turns (QC: 9 Wheel 150 feet: 9 PT Plan Treatment/Plan Treatment Plan: Continue Plan of Care Treatment Plan: Bed Mobility, Concurrent Therapy, Education, Functional Activity Ramon, Functional Strength, Group Therapy, Gait, Safety, Therapeutic Exercise, Transfers Treatment Duration: March 11, 2020 Frequency: 6 times per week Estimated Hrs Per Day: 1.5 hours per day Patient and/or Family Agrees t: Yes Time/GCodes Time In: 1300 Time Out: 1325 Total Billed Treatment Time: 25 Total Billed Treatment 1, EX x 25' RODOLFO AWTT PT Feb 27, 2020 14:26
[2020-02-27 17:14] VITALS: BP 135/64
--- NOTE | 2020-02-27 18:00 | NUR ---
DR. TELLES MADE ROUNDS CLARIFIED WITH HIM DRESSING TO BE CHGD Q3 DAYS UNLESS SOILED. ECHO WAS DONE. NO BM X4 DAYS MEDICATED WITH DULCOLAX SUPPOSITORY ONLY FLATUS, AND NO BM SO FAR THIS SHIFT
[2020-02-27] MEDS: TEMAZEPAM 15 MG (RESTORIL) CAP PO PRN (21:01)
[2020-02-27] MEDS: MONTELUKAST 10 MG (SINGULAIR) TAB PO SCH (21:01)
[2020-02-28] MEDS: HYDROcodone/APAP 7.5 MG/325 MG (LORTAB, LORCET PLUS) TABLET PO PRN ×4 (04:51→23:00)
[2020-02-28] MEDS: CATHETER FLUSH 10 ML SYR IV SCH ×2 (04:51→14:04)
[2020-02-28] MEDS: MULTIVIT W/MINERALS TAB (THERAGRAN M) PO SCH (04:51)
[2020-02-28 06:09] VITALS: BP 123/70
[2020-02-28] MEDS: RT-ALBUTEROL/IPRATROPIUM 3 ML (DUONEB) VIAL INH SCH ×3 (07:48→21:51)
[2020-02-28] MEDS: polyethylene glycoL POWDER 17 GM (MIRALAX) PACK PO SCH ×2 (08:23→19:55)
[2020-02-28] MEDS: SENNA W/DOCUSATE (SENOKOT S) TABLET PO SCH ×2 (08:24→20:03)
[2020-02-28] MEDS: SENNOSIDES 8.6 MG (SENOKOT) TAB PO SCH ×2 (08:24→20:03)
--- NOTE | 2020-02-28 09:18 | Cardiology Progress Note ---
Subjective Date Seen by Provider: Feb 28, 2020 Time Seen by Provider: 08:50 Subjective/Events-last exam Patient in bathroom doing ADL's. Reports feeling well, denies any further d yspnea. Review of Systems General: No Chills, No Night Sweats; Fatigue; No Malaise, No Appetite, No Other HEENT: No Head Aches, No Visual Changes, No Eye Pain, No Ear Pain, No Dysphasia, No Sinus Congestion, No Post Nasal Drip, No Sore Throat, No Other Pulmonary: No Dyspnea, No Cough, No Pleuritic Chest Pain, No Other Cardiovascular: No: Chest Pain, Palpitations, Orthopnea, Paroxysmal Noc. Dyspnea, Edema, Lt Headedness, Other Objective-Cardiology Exam Last Set of Vital Signs Vital Signs 02/28/20 02/28/20 02/28/20 06:09 07:51 08:20 Temp 37.6 Pulse 72 Resp 18 B/P (MAP) 123/70 (87) Pulse Ox 94 O2 Delivery Room Air Capillary Refill : Less Than 3 SecondsLess Than 3 Seconds I&O Intake and Output 02/28/20 00:00 Intake Total 2190 ml Balance 2190 ml Intake Oral 2190 ml # Voids 9 # Bowel Movements 1 General: Alert, Oriented X3, Cooperative HEENT: Atraumatic, PERRLA Neck: Supple, No JVD, No Thyromegaly Lungs: Other (inspiratory wheezing) Heart: Regular Rate, Normal S1, Normal S2, No Murmurs Abdomen: Normal Bowel Sounds, Soft, No Tenderness Extremities: No Clubbing, No Cyanosis, No Edema Skin: No Rashes, No Significant Lesion Neuro: Normal Speech, Cranial Nerves 3-12 NL Psych/Mental Status: Mental Status NL, Mood NL A/P-Cardiology Admission Diagnosis Right hip fx Dyspnea Palpitations Tobaccoism Assessment/Plan Right hip fracture, s/p repair on 02/24/2020, continue with PT/OT Dyspnea, reports chronic dyspnea for past several years, slight increase in dyspnea over the past month, probable underlying COPD. 2D Echo done 02/26/2020 revealed grade I diastolic dysfunction, EF 55-60%, PA 25mmHg. Palpitations, occurring infrequently, continue to monitor. Tobaccoism, educated on the importance of smoking cessation. Parkinsons, management per PCP. UTI- continue on antibiotic, management per PCP Patient was seen and evaluated with Vale, examination performed, management plan was discussed, agree with the current scribed note, I made few changes to the note using Italic font Patient was seen at bedside, sitting comfortably Asking to go home, no new complaint Breathing is better Continue with physical therapy Clinical Quality Measures DVT/VTE Risk/Contraindication: Risk Factor Score Per Nursin RFS Level Per Nursing on Admit: 4+=Very High VALE CEJA Feb 28, 2020 09:18 LAURYN GUERRERO MD Feb 28, 2020 14:08
[2020-02-28] MEDS: ASPIRIN E.C. 81 MG (ECOTRIN) TAB PO SCH (09:49)
[2020-02-28] MEDS: DOCUSATE SODIUM 100 MG (COLACE) CAP PO SCH ×2 (09:49→20:03)
[2020-02-28] MEDS: ENOXAPARIN 40 MG/0.4 ML (LOVENOX) SYR SC SCH (09:49)
[2020-02-28] MEDS: LORATADINE (CLARITIN) 10 MG TAB PO SCH (09:49)
[2020-02-28] MEDS: SINEMET 25/100 (CARBIDOPA/LEVODOPA) TAB PO SCH ×4 (09:49→20:03)
[2020-02-28] MEDS: CEPHALEXIN 250 MG (KEFLEX) CAP PO SCH ×2 (09:49→20:03)
--- NOTE | 2020-02-28 10:20 | PM&R Progress Note ---
Subjective HPI/CC On Admission Date Seen by Provider: Feb 28, 2020 Time Seen by Provider: 10:15 Subjective/Events-last exam Pt had a lot of pain this morning because she laid in a chair with her legs out- stretched last night Lung sounds are very coarse and wheezy, Singulair was started two night ago, I started Claritin today, and Symbicort along with a duo nebulizer treatments TID scheduled Smoking cessation discussed Bowels moved yesterday, complete evacuation Conferred with RN Reviewed therapy notes Checked meds and labs Review of Systems Pulmonary: Dyspnea, Cough Musculoskeletal: leg pain Objective Exam Vital Signs Vital Signs Date Time Temp Pulse Resp B/P (MAP) Pulse Ox O2 Delivery O2 Flow Rate FiO2 02/29/20 06:11 37.4 71 18 124/67 (86) 92 Room Air Capillary Refill : Less Than 3 SecondsLess Than 3 Seconds General Appearance: No Apparent Distress, WD/WN, Chronically ill, Obese HEENT: PERRL/EOMI, Normal ENT Inspection, Pharynx Normal Neck: Full Range of Motion, Normal Inspection, Non Tender, Supple, Carotid Bruit Respiratory: Chest Non Tender, No Accessory Muscle Use, No Respiratory Dis tress, Decreased Breath Sounds, Wheezing Cardiovascular: Regular Rate, Rhythm, No Edema, No Gallop, No JVD, No Murmur, Normal Peripheral Pulses Gastrointestinal: Normal Bowel Sounds, No Organomegaly, No Pulsatile Mass, Non Tender, Soft Back: Normal Inspection, No CVA Tenderness, No Vertebral Tenderness Extremity: Normal Capillary Refill, Normal Inspection, Normal Range of Motion (except right leg from hip fracture site), Non Tender, No Calf Tenderness, No Pedal Edema Neurologic/Psychiatric: Alert, Oriented x3, No Motor/Sensory Deficits, Normal Mood/Affect Skin: Normal Color, Warm/Dry Lymphatic: No Adenopathy Results/Procedures Lab Patient resulted labs reviewed. FIM Transfers Therapy Code Descriptions/Definitions Functional [place] Measure: 0=Not Assessed/NA 4=Minimal Assistance 1=Total Assistance 5=Supervision or Setup 2=Maximal Assistance 6=Modified [place] 3=Moderate Assistance 7=Complete IndependenceSCALE: Activities may be completed with or without assistive devices. 1-Wtunxatgrl-bnkaszp completes the activity by him/herself with no assistance from a helper. 5-Set-up or Clean-up Assistance-helper sets up or cleans up; patient completes activity. [place] assists only prior to or following the activity. 4-Supervision or Touching Assistance-helper provides verbal cues and/or touching/steadying and/or contact guard assistance as patient completes activity. Assistance may be provided throughout the activity or intermittently. 3-Partial/Moderate Assistance-helper does LESS THAN HALF the effort. [place] lifts, holds or supports trunk or limbs, but provides less than half the effort. 2-Substantial/Maximal Assistance-helper does MORE THAN HALF the effort. [place] lifts or holds trunk or limbs and provides more than half the effort. 3-Dygizbgqb-xtsexv does ALL the effort. Patient does none of the effort to complete the activity. Or, the assistance of 2 or more helpers is required for the patient to complete the activity. If activity was not attempted, code reason: 7-Patient Refused. 9-Not Applicable-not attempted and the patient did not perform the activity befo re the current illness, exacerbation or injury. 10-Not Attempted due to Environmental Limitations-(lack of equipment, weather re straints, etc.). 88-Not Attempted due to Medical Conditions or Safety Concerns. Roll Left to Right (QC): 2 Sit to Lying (QC): 2 Sit to Stand (QC): 4 Chair/Mwu-as-Rsmvp Xfer(QC): 3 Car Transfer (QC): 88 Gait Training Does the Patient Walk?: Yes Distance: 40' x 1, 30' x 2 Walk 10 feet (QC): 4 Walk 50 ft with 2 Turns(QC): 88 Walk 150 ft (QC): 88 Walking 10ft/uneven surface-QC: 88 Gait Persons Needed: 1 Gait Assistive Device: FWW Wheelchair Training Does the Pt Use a Wheelchair?: Yes Distance: 100 ft Wheel 50 ft with 2 turns (QC): 3 Wheel 150 ft (QC): 88 Type of Wheelchair: Manual Stair Training 1 Step (curb) (QC): 9 4 Steps (QC): 9 12 Steps (QC): 9 Balance Picking up an Object (QC): 88 ADL-Treatment Eating (QC): 6 Oral Hygiene (QC): 7 Shower/Bathe Self (QC): 7 Upper Body Dressing (QC): 7 Lower Body Dressing (QC): 3 (min A due to cues for AE use and pant leg getting twisted) On/Off Footwear (QC): 7 Toileting Hygiene (QC): 4 (SBA cher hygiene) Toilet Transfer (QC): 3 (CGA with use of gbs to lower to standard toilet, min A sit to stand from toilet.) Assessment/Plan Assessment and Plan Assess & Plan/Chief Complaint Assessment: s/p right hip fracture with uncomplicated repair by Dr Irizarry UTI PD Smoker Falls Wheezing Plan: Lovenox Fall risk IRF protocol Home meds Cardiology evaluation Nebs O2 ICS (1) UTI (urinary tract infection) (2) Parkinson disease (3) Smoker (4) Wheezing (5) Congestion of upper respiratory tract (6) Constipation (7) Fracture of hip, right, closed Status: Acute (8) Fall Status: Acute SHAYAN LI DO Feb 28, 2020 10:20
--- NOTE | 2020-02-28 10:20 | Individualized Plan of Care ---
Individualized Plan of Care Rehab Nursing IPOC Order Admission Date Feb 26, 2020 at 12:10 Current Orders Orders Admission Order(Inpt,Obs,Sdc) (02/26/20 10:18) Vital Signs: Per Unit Policy ( 08,16,00 (02/26/20 10:18) Chris Hair 09,21 (02/26/20 10:18) Broadcast Program Director-Inpt Rehab Con (02/26/20 10:18) Rehab Nursing Orders-Ipoc (02/26/20 10:18) Physical Therapy Rehab Orders (02/26/20 10:18) Occupational Therapy Rehab Ord (02/26/20 10:18) Speech Therapy Rehab Orders (02/26/20 10:18) Cbc With Automated Diff (02/27/20 06:00) Comprehensive Metabolic Panel (02/27/20 06:00) General/Regular (02/26/20 Dinner) Intake & Output 06,14,22 (02/26/20 10:18) Precautions (Aru) (02/26/20 10:18) Weekly Weight WEEK (02/26/20 10:18) Rehab-Intensity Of Therapy (02/26/20 10:18) Initiate Admission Nursing Pro .admission (02/26/20 10:18) Acetaminophen Tablet (Tylenol Tablet) (02/26/20 10:30) Alprazolam Tablet (Xanax Tablet) (02/26/20 10:30) Calcium Carbonate Chew Tablet (Antacid C (02/26/20 10:30) Diphenhydramine Tablet (Benadryl Tablet) (02/26/20 10:30) Docusate Sodium Capsule (Colace Capsule) (02/26/20 21:00) Docusate Sodium Capsule (Colace Capsule) (02/26/20 10:30) Bisacodyl Suppository (Dulcolax Supposit (02/26/20 10:30) Lactulose Oral Solution (Enulose Oral So (02/26/20 10:30) Na Phos/Na Biphos Enema (Fleet Enema Xavier (02/26/20 10:30) Guaifenesin/Codeine Syrup (Robitussin Ac (02/26/20 10:30) Loperamide Tablet (Imodium Tablet) (02/26/20 10:30) Enoxaparin Injection (Lovenox Injection) (02/26/20 10:30) Melatonin Tablet (Melatonin Tablet) (02/26/20 10:30) Polyethylene Glycol Powder Pkt (Miralax (02/26/20 21:00) Ondansetron Injection (Zofran Injectio (02/26/20 10:30) Ondansetron Oral Dissolve Tab (Zofran (02/26/20 10:30) Senna S Tablet (Senokot S Tablet) (02/26/20 21:00) Transfer - Bed/Room/Location (02/26/20 12:10) Admission Arrival Bed Request (02/26/20 12:10) Ambulate ,, (02/26/20 13:09) Sequential Compression Device Q4H (02/26/20 13:09) Dvt/Vte Risk - Notifiy Physici Q4H (02/26/20 13:09) Patient Visit (02/26/20 ) Speech Sound Lang Comp (02/26/20 ) Enoxaparin Injection (Lovenox Injection) (02/27/20 09:00) Patient Visit (02/26/20 ) Pt Eval High Complexity (02/26/20 ) Functional Activities, Ea 15 (02/26/20 ) Gait Training, Ea 15 Min (02/26/20 ) Exercise Therap, Ea 15 Min (02/26/20 ) Code/Resuscitation (02/26/20 15:24) Catheter(Urinary) Discontinue (02/26/20 15:24) Ice: Apply To Affected Area (02/26/20 15:24) Incentive Spirometry (Nursing) Q2H (02/26/20 15:24) Sequential Compression Device Q4H (02/26/20 15:24) Chris Hose ,21 (02/26/20 15:24) General/Regular (02/27/20 Breakfast) Aspirin Enteric Coated Tablet (Ecotrin T (02/27/20 09:00) Cephalexin Capsule (Keflex Capsule) (02/26/20 21:00) Enoxaparin Injection (Lovenox Injection) (02/26/20 15:30) Hydrocodone/Apap 7.5/325 Tab (Lortab 7. (02/26/20 15:30) Therapeutic Multivitamin Tab (Vitamins, (02/27/20 07:00) Temazepam Capsule (Restoril Capsule) (02/26/20 15:30) Sennosides Tablet (Senokot Tablet) (02/26/20 21:00) Sodium Chloride Flush (Catheter Flush Sy (02/26/20 22:00) Acetaminophen Tablet/Caplet (Tylenol T (02/26/20 15:30) Ondansetron Injection (Zofran Injectio (02/26/20 15:30) Diphenhydramine Injection (Benadryl Inje (02/26/20 15:30) Morphine Injection (Morphine Injection (02/26/20 15:30) Consult Cardiology (02/26/20 15:24) Carbidopa/Levodopa 25/100 (Sinemet 25/10 (02/27/20 09:00) Loratadine Tablet (Claritin Tablet) (02/26/20 21:15) Albuterol/Ipra Inhalation Soln (Duoneb I (02/26/20 21:15) Svn Small Volume Nebulizer (02/26/20 21:02) Montelukast Tablet (Singulair Tablet) (02/26/20 21:15) Patient Visit (02/27/20 ) Treat. Speech/Lang/Voice (02/27/20 ) Echo W Doppler/Color Flow (02/26/20 15:24) Patient Visit (02/27/20 ) Exercise Therap, Ea 15 Min (02/27/20 ) Gait Training, Ea 15 Min (02/27/20 ) Dressing Order (Intervention) UD (02/27/20 18:15) Fluticasone/Salmeterol 115/21 (Advair Hf (02/28/20 08:00) Loratadine Tablet (Claritin Tablet) (02/28/20 09:00) Ensure Enlive (02/28/20 Lunch) Patient Visit (02/27/20 ) Gait Training, Ea 15 Min (02/27/20 ) Exercise Therap, Ea 15 Min (02/27/20 ) Patient Visit (02/28/20 ) Treat. Speech/Lang/Voice (02/28/20 ) Diclofenac 1% Gel (Voltaren 1% Gel) (02/29/20 09:00) Gabapentin Capsule/Tablet (Neurontin Cap (02/29/20 21:00) Heating Pad (02/28/20 23:57) Us Venous Lower Ext Rt (02/29/20 06:41) Rehab Nursing Orders: Ongoing Assess. of Cognitive Status, Ongoing Assess. of Function Status, Bladder Management, Bladder Scan, Bladder Training, Bowel Ma nagement, Bowel Training, Disease Management & Educaiton, DVT Prophylaxis, Fall Prevention, Fluid/Electrolyte/Nutrition Mgmt, Infection Prevention, Medication Management & Education, Management of Risks & Complications, Management of Skin Intergrity, Nutrition Management, Pain Management, Patient/Family Support, Safety Management Intensity of Therapy to be met Patient to be seen: Min.3h per day/5 of 7d PT IPOC Problem List: Activity Tolerance, Functional Strength, Safety, Balance, Gait, Transfer, Bed Mobility, ROM Treatment Plan: Continue Plan of Care Bed Mobility, Concurrent Therapy, Education, Functional Activity Ramon, Functional Strength, Group Therapy, Gait, Safety, Therapeutic Exercise, Transfers Treatment Duration: March 11, 2020 Frequency: 6 times per week Estimated Hrs Per Day: 1.5 hours per day OT IPOC Problems: Decreased Activ Tolerance, Decreased UE Strength, Dependent Transfers, Impaired Funct Balance, Impaired I ADL's, Impaired Self-Care Skills OT Treatment, Training and Edu: Yes Plan of Care: ADL Retraining, Concurrent Therapy, Functional Mobility, Group Exercise/Act as Ind, UE Funct Exercise/Act, W/C Management Training Treatment Duration: March 11, 2020 Frequency: At least 5 of 7 days/Wk (IRF) Estimated Hrs Per Day: 1.[address] IPOC Speech Therapy Treatment Plan: Continue Plan of Care Treatment Duration: March 08, 2020 Frequency: 5 times per week Estimated Hrs Per Day: .5 hour per day Broadcast Program Director/Case Mgmt Broadcast Program Director/Case Managemen: Discharge Planning Dietitian/Show Host Or Hostess Dietitian/Show Host Or Hostess to monitor nutritional status and make changes and/or recommendations as needed and work with speech pathology on dietary upgrades as the occur. 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
[2020-02-28] MEDS: ADVAIR HFA 115/21 MCG INHALER 8 GM IH SCH ×2 (10:39→21:51)
--- NOTE | 2020-02-28 10:48 | Physical Therapy Daily Note ---
PT Daily Note-Current Subjective She states that she is still really tired. States that she did not sleep well last night. Pain Numeric Pain Scale: 5-Moderate Pain Location: Right Location Body Site: Hip Transfers SCALE: Activities may be completed with or without assistive devices. 3-Fbsnihxqer-zzpchbm completes the activity by him/herself with no assistance from a helper. 5-Set-up or Clean-up Assistance-helper sets up or cleans up; patient completes activity. [place] assists only prior to or following the activity. 4-Supervision or Touching Assistance-helper provides verbal cues and/or joe philipp/steadying and/or contact guard assistance as patient completes activity. Assistance may be provided throughout the activity or intermittently. 3-Partial/Moderate Assistance-helper does LESS THAN HALF the effort. [place] lifts, holds or supports trunk or limbs, but provides less than half the effort. 2-Substantial/Maximal Assistance-helper does MORE THAN HALF the effort. [place] lifts or holds trunk or limbs and provides more than half the effort. 4-Xhkwiuzod-mzrkmx does ALL the effort. Patient does none of the effort to complete the activity. Or, the assistance of 2 or more helpers is required for the patient to complete the activity. If activity was not attempted, code reason: 7-Patient Refused. 9-Not Applicable-not attempted and the patient did not perform the activity before the current illness, exacerbation or injury. 10-Not Attempted due to Environmental Limitations-(lack of equipment, weather restraints, etc.). 88-Not Attempted due to Medical Conditions or Safety Concerns. Sit to Stand (QC): 4 Weight Bearing Right Lower Extremity: Right Full Weight Bearing Left Lower Extremity: Left Full Weight Bearing Gait Training Does the Patient Walk?: Yes Distance: 75' x 2 Walk 10 feet (QC): 4 Walk 50 ft with 2 Turns(QC): 4 Walk 150 ft (QC): 88 Gait Persons Needed: 1 Gait Assistive Device: FWW Exercises Seated Therapy Exercises: LE Protocol Seated Reps: 20 NuStep Minutes: 15 NuStep Workload: 5 Assessment Current Status: Excellent Progress The patient was able to ambulate farther distance today. She also had improved gait pattern and was able to perform step through gait pattern 75% of the time. PT Billet Header Goals Billet Header Goals PT Mcfp Goals Time Frame: March 11, 2020 Roll Left & Right (QC): 6 Sit to Lying (QC): 6 Lying-Sitting on Side/Bed(QC): 6 Sit to Stand (QC): 6 Chair/Lgd-qa-Jrkze Xfer(QC): 6 Toilet Transfer (QC): 6 Car Transfer (QC): 4 Does the Patient Walk: Yes Walk 10 feet (QC): 6 Walk 50ft with 2 Turns (QC): 6 Walk 150 ft (QC): 6 Walking 10ft on Uneven Surface: 4 1 Step (curb) (QC): 9 4 Steps (QC): 9 12 Steps (QC): 9 Picking up an Object (QC): 88 Wheel 50 feet with 2 turns (QC: 9 Wheel 150 feet: 9 PT Plan Treatment/Plan Treatment Plan: Continue Plan of Care Treatment Plan: Bed Mobility, Concurrent Therapy, Education, Functional Activity Ramon, Functional Strength, Group Therapy, Gait, Safety, Therapeutic Exercise, Transfers Treatment Duration: March 11, 2020 Frequency: 6 times per week Estimated Hrs Per Day: 1.5 hours per day Patient and/or Family Agrees t: Yes Time/GCodes Time In: 930 Time Out: 1030 Total Billed Treatment Time: 60 Total Billed Treatment 1, GT x 15, 45' EX RODOLFO WATT PT Feb 28, 2020 10:48
--- NOTE | 2020-02-28 10:49 | Occupational Ther Daily Note ---
OT Current Status-Daily Note Subjective Pt seen in bed, awake/ alert. Pt states she is tired, stating she slept poorly until she received pain medications this morning. Pt states her pain was "excruciating" this morning, stating now it is "okay." Pt agrees to tx session. [id number] (15): Pt seen post PT, states 7/10 pain in hip. Pt hesitantly agrees to OT tx session. ADL-Treatment Therapy Code Descriptions/Definitions Functional [place] Measure: 0=Not Assessed/NA 4=Minimal Assistance 1=Total Assistance 5=Supervision or Setup 2=Maximal Assistance 6=Modified [place] 3=Moderate Assistance 7=Complete IndependenceSCALE: Activities may be completed with or without assistive devices. 9-Dhwydvpguj-fqofgrz completes the activity by him/herself with no assistance from a helper. 5-Set-up or Clean-up Assistance-helper sets up or cleans up; patient completes activity. [place] assists only prior to or following the activity. 4-Supervision or Touching Assistance-helper provides verbal cues and/or touching/steadying and/or contact guard assistance as patient completes activity. Assistance may be provided throughout the activity or intermittently. 3-Partial/Moderate Assistance-helper does LESS THAN HALF the effort. [place] lifts, holds or supports trunk or limbs, but provides less than half the effort. 2-Substantial/Maximal Assistance-helper does MORE THAN HALF the effort. [place] lifts or holds trunk or limbs and provides more than half the effort. 0-Pnxqbnhps-fvrbys does ALL the effort. Patient does none of the effort to complete the activity. Or, the assistance of 2 or more helpers is required for the patient to complete the activity. If activity was not attempted, code reason: 7-Patient Refused. 9-Not Applicable-not attempted and the patient did not perform the activity before the current illness, exacerbation or injury. 10-Not Attempted due to Environmental Limitations-(lack of equipment, weather restraints, etc.). 88-Not Attempted due to Medical Conditions or Safety Concerns. Eating (QC): 6 Oral Hygiene (QC): 7 Bathing Location: L Arm, R Arm, L Upper Leg, R Upper Leg, Chest, Abdomen, Buttocks, Perineal Area Shower/Bathe Self (QC): 4 (SBA and cues for use of LHS/ maintenance of precautions ) Upper Body Dressing (QC): 5 Lower Body Dressing (QC): 4 (CGA/ cues for use of AE/ maintenance of precautions. Pt attempts donning briefs in shower, requires cues for use of freight inspector, pt becomes frustrated, stating, "I'll just hire a blind man to come dress me," and, "You know at home I will find a way to do this." Pt states she understands the need to don clothes, though she states she would rather wear her zip-up robe at this time. Pt requires bathroom use, doffs briefs, completes and stands at 2WW/ gbs. Pt attempts to bend and thread pants on LE in stance. Pt requries CGA during this, unable to complete. Pt is provided skilled cues for ease/ safety of task. Pt places pants on ground and steps into bilateral legs. Pt sits on toilet and utilizes freight inspector to bring up to knees, completes with CGA. ) On/Off Footwear: 3 (min A- completes with long handled shoe horn, skilled cues for placement, and min A for positioning.) Toileting Hygiene (QC): 4 (SUP) Toilet Transfer (QC): 4 (CGA) Other Treatment Pt completes bed mob with encouragement and SBA (pt states she needs help, then states she can complete on own). Pt states she has gel mattress at home and does not know if she'll be able to slide out with ease, pt does not own recliner to sleep in. Pt agrees to shower, IV site and R hip bandage prepped. Pt states she has handicap accessible apartment across from hers where she can utilize the walk in shower/ shower bench rather than her tub/ shower. Pt completes ADLs as above. Pt sits in front of sink to complete hair grooming task. All needs met, call light in reach, pt left in w/c per pt's request end of session. [id number]: Pt in recliner chair. Pt states she is tired and that OT can just pretend she is not breathing. Pt declines bathroom, stating she just went earlier. Pt completes 5 reps of HEP exercises with min cues. Pt expresses immense discomfort in leg, OT asks what she would like, Pt states, "A gun," pt states, "Seriously, seriously." OT asks if she would like to talk to somebody, pt declines stating she is just kidding. Pt makes comment later, listening to people in [place], stating, "I enjoy hearing those people laughing, but seriously, how can they be laughing," stating she is miserable. Pt declines pain medicatio n, stating she already had some around 1230. Pt states she doesn't know why she was taken off Sentiment, as she has been having tremors. Pt educated on OT's observation of minimal tremors past 2 days and increased tremors today. Pt agrees anxiousness and fatigue play a role in her tremors of LUE. Pt states she would like to be done, agrees to another diet coke, all needs met, call light in reach. Pt's nurse notified of pt's comments. Education OT Patient Education: Correct positioning, Modified ADL techniques, Purpose of tx/functional activities, Safety issues, Use of adapted equipment Teaching Recipient: Patient Teaching Methods: Demonstration, Discussion Response to Teaching: Verbalize Understanding, Return Demonstration, Reinforcement Needed OT Short Term Goals Short Term Goals Lower body dressin Putting on/taking off footwear: 5 OT Home Aid Goals Home Aid Goals Time Frame: March 11, 2020 Eating (QC): 6 Oral Hygiene (QC): 6 Toileting Hygiene (QC): 6 Shower/Bathe Self (QC): 6 Upper Body Dressing (QC): 6 Lower Body Dressing (QC): 6 On/Off Footwear (QC): 6 Additional Goals: 1-Demonstrate ADL Tasks, 2-Verbalize Understanding, 3- ImproveStrength/Ramon 1=Demonstrate adherence to instructed precautions during ADL tasks. 2=Patient will verbalize/demonstrate understanding of assistive devices/modifications for ADL. 3=Patient will improve strength/tolerance for activity to enable patient to perform ADL's. OT Education/Plan Problem List/Assessment Assessment: Decreased Activ Tolerance, Decreased UE Strength, Dependent Transfers, Impaired Funct Balance, Impaired I ADL's, Impaired Self-Care Skills Discharge Recommendations Plan/Recommendations: Continue POC Treatment Plan/Plan of Care Treatment,Training & Education: Yes Patient would benefit from OT for education, treatment and training to promote independence in ADL's, mobility, safety and/or upper extremity function for ADL's. Plan of Care: ADL Retraining, Concurrent Therapy, Functional Mobility, Group Exercise/Act as Ind, UE Funct Exercise/Act, W/C Management Training Treatment Duration: March 11, 2020 Frequency: At least 5 of 7 days/Wk (IRF) Estimated Hrs Per Day: 1.5 hours per day Agreement: Yes Rehab Potential: Good Time/GCodes Start Time: 08:00 Stop Time: 09:10 Total Time Billed (hr/min): 70 Billed Treatment Time [id number]: 1, ADL 4 (60), FA (10)= 70 [id number]: 1, EX (15) GAVINO LIVINGSTON OTR Feb 28, 2020 10:49
--- NOTE | 2020-02-28 11:52 | Progress Note ---
Standard Progress Note Progress Notes/Assess & Plan Date Seen by a Provider: Feb 28, 2020 Time Seen by a Provider: 11:51 Progress/Assessment & Plan no complaints Vital Signs Date Time Temp Pulse Resp B/P (MAP) Pulse Ox O2 Delivery O2 Flow Rate FiO2 02/27/20 05:43 37.0 74 18 135/76 (95) 93 Room Air 02/26/20 21:00 Room Air 02/26/20 17:39 37.6 80 18 136/67 (90) 90 Room Air 02/26/20 12:55 Room Air 02/26/20 12:32 37.7 80 16 112/51 91 Room Air I & O 02/27/20 07:00 Intake Total 350 ml Balance 350 ml Laboratory Tests Test 02/27/20 04:56 Range/Units White Blood Count 10.2 4.3-11.0 10^3/uL Red Blood Count 3.72 L 4.35-5.85 10^6/uL Hemoglobin 10.2 L 11.5-16.0 G/DL Hematocrit 32 L 35-52 % Mean Corpuscular Volume 86 80-99 FL Mean Corpuscular Hemoglobin 27 25-34 PG Mean Corpuscular Hemoglobin Concent 32 32-36 G/DL Red Cell Distribution Width 13.5 10.0-14.5 % Platelet Count 216 130-400 10^3/uL Mean Platelet Volume 10.4 7.4-10.4 FL Neutrophils (%) (Auto) 51 42-75 % Lymphocytes (%) (Auto) 33 12-44 % Monocytes (%) (Auto) 12 0-12 % Eosinophils (%) (Auto) 4 0-10 % Basophils (%) (Auto) 0 0-10 % Neutrophils # (Auto) 5.2 1.8-7.8 X 10^3 Lymphocytes # (Auto) 3.4 1.0-4.0 X 10^3 Monocytes # (Auto) 1.2 H 0.0-1.0 X 10^3 Eosinophils # (Auto) 0.4 H 0.0-0.3 10^3/uL Basophils # (Auto) 0.0 0.0-0.1 10^3/uL Sodium Level 139 135-145 MMOL/L Potassium Level 3.8 3.6-5.0 MMOL/L Chloride Level 104 98-107 MMOL/L Carbon Dioxide Level 24 21-32 MMOL/L Anion Gap 11 5-14 MMOL/L Blood Urea Nitrogen 10 7-18 MG/DL Creatinine 0.63 0.60-1.30 MG/DL Estimat Glomerular Filtration Rate > 60 BUN/Creatinine Ratio 16 Glucose Level 121 H 70-105 MG/DL Calcium Level 8.8 8.5-10.1 MG/DL Corrected Calcium 9.2 8.5-10.1 MG/DL Total Bilirubin 0.8 0.1-1.0 MG/DL Aspartate Amino Transf (AST/SGOT) 59 H 5-34 U/L Alanine Aminotransferase (ALT/SGPT) 63 H 0-55 U/L Alkaline Phosphatase 110 40-136 U/L Total Protein 6.1 L 6.4-8.2 GM/DL Albumin 3.5 3.2-4.5 GM/DL able to perform SLR. No calf tenderness s/p R hip bipolar continue PT/OT Final Diagnosis no complaints Vital Signs Date Time Temp Pulse Resp B/P (MAP) Pulse Ox O2 Delivery O2 Flow Rate FiO2 02/28/20 08:20 Room Air 02/28/20 07:51 94 Room Air 02/28/20 06:09 37.6 72 18 123/70 (87) 95 Room Air 02/27/20 21:00 Room Air 02/27/20 18:55 93 Room Air 02/27/20 17:14 37.2 78 18 135/64 (87) 90 Room Air 02/27/20 14:39 91 Room Air I & O 02/28/20 07:00 Intake Total 2160 ml Balance 2160 ml RLE--dressing intact. No calf tenderness. Neg Félix's s/p R hip bipolar continue PT/OT PERI TELLES MD Feb 28, 2020 11:52
--- NOTE | 2020-02-28 11:53 | Speech Therapy Daily Note ---
Speech Daily Progress Note Subjective Date Seen by Provider: Feb 28, 2020 Time Seen by Provider: 00:30 Patient was resting in her recliner following her PT session. She stated she was in pain. Objective Patient completed a series of q/a related to her daily routine at home with 80% with min to mod cues.. Assessment Assessment Current Status: Fair Progress Treatment Plan Continue Plan of Care Speech Short Term Goals Short Term Goals Short Term Goals 1) Patient will complete memory tasks related to her daily needs at 90% with minimal cues. 1) Patient will complete memory tasks related to her daily needs at 90% with minimal cues. 2) Patient will complete safety awareness tasks related to her daily needs at 90% with minimal cues. 3) Patient will complete problem solving tasks related to her daily needs at 90% with minimal cues. Speech Panel Assembler Goals Panel Assembler Goals Patient will improve cognitive-communication necessary for safety and daily living tasks with minimal assist. Speech-Plan Patient/Family Goals Patient/Family Goals: Patient plans on returning to her apartment upon discharge. She has a daughter close by for support as needed. Treatment Plan Speech Therapy Treatment Plan: Continue Plan of Care Treatment Duration: March 08, 2020 Frequency: 5 times per week Estimated Hrs Per Day: .5 hour per day Rehab Potential: Good Barriers to Learning: Patient continues to have decreased focus and has to be redirected to task. She is very impulsive Pt/Family Agrees to Plan: Yes Safety Risks/Education Teaching Recipient: Patient Teaching Methods: Demonstration, Discussion Response to Teaching: Verbalize Understanding, Return Demonstration Education Topics Provided: Continued safety in her room Time Speech Therapy Time In: 10:30 Speech Therapy Time Out: 11:00 Total Billed Time: 30 Billed Treatment Time 1[address] Feb 28, 2020 11:53
--- NOTE | 2020-02-28 14:12 | Physical Therapy Daily Note ---
PT Daily Note-Current Subjective States that she is still really tired. States that she can tell that her pain is coming from in the back of her hip. Pain Numeric Pain Scale: 5-Moderate Pain Transfers SCALE: Activities may be completed with or without assistive devices. 8-Mwrczkykxi-godfqdg completes the activity by him/herself with no assistance from a helper. 5-Set-up or Clean-up Assistance-helper sets up or cleans up; patient completes activity. [place] assists only prior to or following the activity. 4-Supervision or Touching Assistance-helper provides verbal cues and/or touching/steadying and/or contact guard assistance as patient completes activity. Assistance may be provided throughout the activity or intermittently. 3-Partial/Moderate Assistance-helper does LESS THAN HALF the effort. [place] lifts, holds or supports trunk or limbs, but provides less than half the effort. 2-Substantial/Maximal Assistance-helper does MORE THAN HALF the effort. [place] lifts or holds trunk or limbs and provides more than half the effort. 2-Uexxeaoga-qyghui does ALL the effort. Patient does none of the effort to complete the activity. Or, the assistance of 2 or more helpers is required for the patient to complete the activity. If activity was not attempted, code reason: 7-Patient Refused. 9-Not Applicable-not attempted and the patient did not perform the activity before the current illness, exacerbation or injury. 10-Not Attempted due to Environmental Limitations-(lack of equipment, weather restraints, etc.). 88-Not Attempted due to Medical Conditions or Safety Concerns. Sit to Stand (QC): 4 Weight Bearing Right Lower Extremity: Right Full Weight Bearing Left Lower Extremity: Left Full Weight Bearing Gait Training Distance: 75' Walk 10 feet (QC): 4 Walk 50 ft with 2 Turns(QC): 4 Gait Persons Needed: 1 Gait Assistive Device: FWW The patient had increased difficulty with advancing the LLE today. Exercises Standing: Sit to Stand Standing Reps: 5 Assessment Current Status: Excellent Progress The patient continues to be limited secondary to (R) LE pain and numbness. PT Longterm Goals Liquid Sugar Fortifier Goals PT Liquid Sugar Fortifier Goals Time Frame: March 11, 2020 Roll Left & Right (QC): 6 Sit to Lying (QC): 6 Lying-Sitting on Side/Bed(QC): 6 Sit to Stand (QC): 6 Chair/Sqw-vw-Zaxdl Xfer(QC): 6 Toilet Transfer (QC): 6 Car Transfer (QC): 4 Does the Patient Walk: Yes Walk 10 feet (QC): 6 Walk 50ft with 2 Turns (QC): 6 Walk 150 ft (QC): 6 Walking 10ft on Uneven Surface: 4 1 Step (curb) (QC): 9 4 Steps (QC): 9 12 Steps (QC): 9 Picking up an Object (QC): 88 Wheel 50 feet with 2 turns (QC: 9 Wheel 150 feet: 9 PT Plan Treatment/Plan Treatment Plan: Continue Plan of Care Treatment Plan: Bed Mobility, Concurrent Therapy, Education, Functional Activity Ramon, Functional Strength, Group Therapy, Gait, Safety, Therapeutic Exercise, Transfers Treatment Duration: March 11, 2020 Frequency: 6 times per week Estimated Hrs Per Day: 1.5 hours per day Patient and/or Family Agrees t: Yes Time/GCodes Time In: 1300 Time Out: 1320 Total Billed Treatment Time: 20 Total Billed Treatment 1, GT x 20' RODOLFO WATT PT Feb 28, 2020 14:12
[2020-02-28 18:08] VITALS: BP 110/67
[2020-02-28] MEDS: MONTELUKAST 10 MG (SINGULAIR) TAB PO SCH (20:03)
[2020-02-28] MEDS: guaiFENesin/CODEINE (ROBITUSSIN AC) 10ML UDC PO PRN (21:59)
--- NOTE | 2020-02-28 23:03 | NUR ---
THIS RN NOTIFIED DR. LI OF PT C/O PAIN 10/10 IN RIGHT LEG STARTING FROM KNEE AND ASCENDING UP TO RT HIP. THIS RN INFORMED DR. LI THAT PT'S RIGHT LEG IS SLIGHTLY MORE SWOLLEN THAN LEFT LEG, STRONG PEDAL PULSES BILATERALLY, AND THAT THIS RN WAS UNABLE TO PALPATE POPLITEAL PULSES. NEW ORDERS OBTAINED, SEE ORDER HX.
[2020-02-29] MEDS: HYDROcodone/APAP 7.5 MG/325 MG (LORTAB, LORCET PLUS) TABLET PO PRN ×4 (04:14→21:18)
[2020-02-29] MEDS: MULTIVIT W/MINERALS TAB (THERAGRAN M) PO SCH (06:01)
[2020-02-29 06:11] VITALS: BP 124/67
--- NOTE | 2020-02-29 06:39 | NUR ---
THIS RN NOTIFIED DR. TELLES OF PT'S C/O OF PAIN IN RIGHT LEG AND HIP AND CONTRIBUTING SX/SX. NEW ORDERS OBTAINED, SEE ORDER HX.
[2020-02-29] MEDS: ASPIRIN E.C. 81 MG (ECOTRIN) TAB PO SCH (08:17)
[2020-02-29] MEDS: LORATADINE (CLARITIN) 10 MG TAB PO SCH (08:17)
[2020-02-29] MEDS: SINEMET 25/100 (CARBIDOPA/LEVODOPA) TAB PO SCH ×4 (08:17→21:17)
[2020-02-29] MEDS: CEPHALEXIN 250 MG (KEFLEX) CAP PO SCH ×2 (08:17→21:17)
[2020-02-29] MEDS: SENNOSIDES 8.6 MG (SENOKOT) TAB PO SCH ×2 (08:21→21:19)
[2020-02-29] MEDS: polyethylene glycoL POWDER 17 GM (MIRALAX) PACK PO SCH ×2 (08:21→21:19)
[2020-02-29] MEDS: SENNA W/DOCUSATE (SENOKOT S) TABLET PO SCH ×2 (08:21→21:19)
[2020-02-29] MEDS: DOCUSATE SODIUM 100 MG (COLACE) CAP PO SCH ×2 (08:21→21:19)
[2020-02-29] MEDS: ENOXAPARIN 40 MG/0.4 ML (LOVENOX) SYR SC SCH (08:21)
[2020-02-29] MEDS: DICLOFENAC 1% GEL 100 GM (VOLTAREN) TUBE TOP SCH ×4 (08:21→21:20)
--- NOTE | 2020-02-29 09:17 | Occupational Ther Daily Note ---
OT Current Status-Daily Note Subjective [id number] (65) Pt seen in recliner this morning. Pt states she was in extreme pain last night, states she may have a pinched nerve. Pt decribed pain as: constant, burning sensation from hip to knee, immobilizing for ~10 minutes at a time. Pt hesitant to agree to therapy, states, "I told them yesterday I wasn't going to do it," Pt agrees to education on decreasing edema in RLE and laundry, declines showering. Mental Status/Objective Patient Orientation: Person, Place, Situation ADL-Treatment Therapy Code Descriptions/Definitions Functional [place] Measure: 0=Not Assessed/NA 4=Minimal Assistance 1=Total Assistance 5=Supervision or Setup 2=Maximal Assistance 6=Modified [place] 3=Moderate Assistance 7=Complete IndependenceSCALE: Activities may be completed with or without assistive devices. 3-Afqtpusivu-ppgycwe completes the activity by him/herself with no assistance from a helper. 5-Set-up or Clean-up Assistance-helper sets up or cleans up; patient completes activity. [place] assists only prior to or following the activity. 4-Supervision or Touching Assistance-helper provides verbal cues and/or touching/steadying and/or contact guard assistance as patient completes activity. Assistance may be provided throughout the activity or intermittently. 3-Partial/Moderate Assistance-helper does LESS THAN HALF the effort. [place] lifts, holds or supports trunk or limbs, but provides less than half the effort. 2-Substantial/Maximal Assistance-helper does MORE THAN HALF the effort. [place] lifts or holds trunk or limbs and provides more than half the effort. 7-[place]-bsmufh does ALL the effort. Patient does none of the effort to complete the activity. Or, the assistance of 2 or more helpers is required for the patient to complete the activity. If activity was not attempted, code reason: 7-Patient Refused. 9-Not Applicable-not attempted and the patient did not perform the activity before the current illness, exacerbation or injury. 10-Not Attempted due to Environmental Limitations-(lack of equipment, weather restraints, etc.). 88-Not Attempted due to Medical Conditions or Safety Concerns. Eating (QC): 6 Oral Hygiene (QC): 7 Shower/Bathe Self (QC): 7 Upper Body Dressing (QC): 7 Lower Body Dressing (QC): 4 (SBA EOB with cues for funeral home assistant use/ precaution management. ) On/Off Footwear: 3 (min A- pt attempts sock aide, able to don sock to sock aide, unable to gather enough UE strength to don sock on foot. Pt requires assist to don sock. Pt then doffs sock with AE, requires assist for use of LH shoe horn for shoe donning success.) Toileting Hygiene (QC): 6 Toilet Transfer (QC): 4 (SUP) Other Treatment Pt c/o pain. Pt educated on therapeutic techniques to decrease edema, including manual edema manipulation and exercises. Pt's RLE > temperature and more edematous (non pitting) than LLE. Pt's nurse states doppler later to rule out DVT. No manual edema manipulation rendured due to risk of DVT. Pt bathrooms, sits EOB for pant doffing/ donning with SBA (cues for AE). Pt again states at home she will either hire someone to don LE garments or bend down, pt states she is kidding. Pt educated on importance of precautions for hip placement, pt acknowledges. Pt agrees to laundry, sit to stand SBA, ambulates with 2WW to laundry with CGA and w/c to follow, requires one rest break at laundry door. Pt educated on plan for laundry maintenance-- pt utilizes funeral home assistant to gather top loaded items from washer and places them in front load dryer with min A (balance decreased). Pt educated on funeral home assistant use and basket placement to decrease pt's need to bend to gather items. Pt agrees, completes all tasks with CGA-min A. Pt returns to room, walking with 2WW most of way. Pt pushed in w/c, placed in room, pt requests stay in w/c, all needs met, call light in reach. Education OT Patient Education: Correct positioning, Energy conservation, Modified ADL techniques, Purpose of tx/functional activities, Reviewed precautions, Safety issues, Use of adapted equipment Teaching Recipient: Patient Teaching Methods: Demonstration, Discussion Response to Teaching: Verbalize Understanding, Return Demonstration OT Short Term Goals Short Term Goals Lower body dressin Putting on/taking off footwear: 5 OT Skilled Nursing Goals Investigations Manager Goals Time Frame: March 11, 2020 Eating (QC): 6 Oral Hygiene (QC): 6 Toileting Hygiene (QC): 6 Shower/Bathe Self (QC): 6 Upper Body Dressing (QC): 6 Lower Body Dressing (QC): 6 On/Off Footwear (QC): 6 Additional Goals: 1-Demonstrate ADL Tasks, 2-Verbalize Understanding, 3- ImproveStrength/Ramon 1=Demonstrate adherence to instructed precautions during ADL tasks. 2=Patient will verbalize/demonstrate understanding of assistive de vices/modifications for ADL. 3=Patient will improve strength/tolerance for activity to enable patient to perform ADL's. OT Education/Plan Problem List/Assessment Assessment: Decreased Activ Tolerance, Decreased Safety Aware, Decreased UE Strength, Edema, Impaired Funct Balance, Impaired I ADL's, Impaired Self-Care Skills Discharge Recommendations Plan/Recommendations: Continue POC Therapy Discharge Recommendati: Intermittent Supervision, Home & Family Treatment Plan/Plan of Care Treatment,Training & Education: Yes Patient would benefit from OT for education, treatment and training to promote independence in ADL's, mobility, safety and/or upper extremity function for ADL's. Plan of Care: ADL Retraining, Concurrent Therapy, Functional Mobility, Group Exercise/Act as Ind, UE Funct Exercise/Act, W/C Management Training Treatment Duration: March 11, 2020 Frequency: At least 5 of 7 days/Wk (IRF) Estimated Hrs Per Day: 1.5 hours per day Agreement: Yes Rehab Potential: Good Time/GCodes Start Time: 08:00 Stop Time: 09:05 Total Time Billed (hr/min): 65 Billed Treatment Time [id number]: 1, ADL 2, FA 2 (65) GAVINO LIVINGSTON OTR Feb 29, 2020 09:17
--- NOTE | 2020-02-29 09:59 | Cardiology Progress Note ---
Subjective Date Seen by Provider: Feb 29, 2020 Time Seen by Provider: 08:45 Subjective/Events-last exam Patient is with PT, no new complaints, denies any chest pain or dyspnea. Review of Systems General: No Chills, No Night Sweats, No Fatigue, No Malaise, No Appetite, No Ot her HEENT: No Head Aches, No Visual Changes, No Eye Pain, No Ear Pain, No Dysphasia, No Sinus Congestion, No Post Nasal Drip, No Sore Throat, No Other Pulmonary: No Dyspnea, No Cough, No Pleuritic Chest Pain, No Other Cardiovascular: No: Chest Pain, Palpitations, Orthopnea, Paroxysmal Noc. Dyspnea, Edema, Lt Headedness, Other Objective-Cardiology Exam Last Set of Vital Signs Vital Signs 02/29/20 02/29/20 06:11 09:08 Temp 37.4 Pulse 71 Resp 18 B/P (MAP) 124/67 (86) Pulse Ox 92 O2 Delivery Room Air Capillary Refill : Less Than 3 SecondsLess Than 3 Seconds I&O Intake and Output 02/29/20 00:00 Intake Total 840 ml Balance 840 ml Intake Oral 520 ml Tube Feeding 320 ml # Voids 4 # Bowel Movements 1 General: Alert, Oriented X3, Cooperative HEENT: Atraumatic, PERRLA Neck: Supple, No JVD, No Thyromegaly Lungs: Other (inspiratory wheezing) Heart: Regular Rate, Normal S1, Normal S2, No Murmurs Abdomen: Normal Bowel Sounds, Soft, No Tenderness Extremities: No Clubbing, No Cyanosis, No Edema Skin: No Rashes, No Significant Lesion Neuro: Normal Speech, Cranial Nerves 3-12 NL Psych/Mental Status: Mental Status NL, Mood NL A/P-Cardiology Admission Diagnosis Right hip fx Dyspnea Palpitations Tobaccoism Assessment/Plan Right hip fracture, s/p repair on 02/24/2020, continue with PT/OT Dyspnea, reports chronic dyspnea for past several years, slight increase in dyspnea over the past month, probable underlying COPD. 2D Echo done 02/26/2020 revealed grade I diastolic dysfunction, EF 55-60%, PA 25mmHg. Palpitations, occurring infrequently, continue to monitor. Tobaccoism, educated on the importance of smoking cessation. Parkinsons, management per PCP. UTI- continue on antibiotic, management per PCP Patient was seen and evaluated with [place], examination performed, management plan was discussed, agree with the current scribed note, I made few changes to the note using Italic font Patient was seen during physical therapy session, feeling better, no shortness of breath Continue on current medication continue to monitor Clinical Quality Measures DVT/VTE Risk/Contraindication: Risk Factor Score Per Nursin RFS Level Per Nursing on Admit: 4+=Very High VALE CEJA Feb 29, 2020 9:59 am LAURYN GUERRERO MD Feb 29, 2020 10:13 am
[2020-02-29] MEDS: RT-ALBUTEROL/IPRATROPIUM 3 ML (DUONEB) VIAL INH SCH ×3 (10:10→19:26)
[2020-02-29] MEDS: ADVAIR HFA 115/21 MCG INHALER 8 GM IH SCH ×2 (10:10→19:26)
--- NOTE | 2020-02-29 10:14 | PM&R Progress Note ---
Subjective HPI/CC On Admission Date Seen by Provider: Feb 29, 2020 Time Seen by Provider: 10:15 Subjective/Events-last exam Bowel movement yesterday Pain is an issue that prompted a phone call to me at 2300 hours yesterday so K pad and Voltaren Gel initiated along with Gabapentin 100mg and Dr. Irizarry ordered ultrasound to rule out DVT although she has been on Lovenox for the whole entire time she has been in the hospital but will maker sure there is no blood clot and will work on pain Lungs still remain coarse and wheezing so will initiate a dose of Solumedrol of 90mg IMx1 and then Prednisone of 40/30/20/10 starting tomorrow to help with the COPD exacerbation a new diagnosis and incase this is sciatica that could probably help too and we will update Dr. Irizarry on the steroid initiation Conferred with RN Reviewed therapy notes Checked meds and labs Review of Systems General: Fatigue Pulmonary: Dyspnea Musculoskeletal: leg pain Objective Exam Vital Signs Vital Signs Date Time Temp Pulse Resp B/P (MAP) Pulse Ox O2 Delivery O2 Flow Rate FiO2 03/01/20 05:57 36.9 82 16 147/66 (93) 95 Room Air Capillary Refill : Less Than 3 SecondsLess Than 3 Seconds General Appearance: No Apparent Distress, WD/WN, Chronically ill, Obese HEENT: PERRL/EOMI, Normal ENT Inspection, Pharynx Normal Neck: Full Range of Motion, Normal Inspection, Non Tender, Supple, Carotid Bruit Respiratory: Chest Non Tender, No Accessory Muscle Use, No Respiratory Distress, Decreased Breath Sounds, Wheezing Cardiovascular: Regular Rate, Rhythm, No Edema, No Gallop, No JVD, No Murmur, Normal Peripheral Pulses Gastrointestinal: Normal Bowel Sounds, No Organomegaly, No Pulsatile Mass, Non Tender, Soft Back: Normal Inspection, No CVA Tenderness, No Vertebral Tenderness Extremity: Normal Capillary Refill, Normal Inspection, Normal Range of Motion (except right leg from hip fracture site), Non Tender, No Calf Tenderness, No Pedal Edema Neurologic/Psychiatric: Alert, Oriented x3, No Motor/Sensory Deficits, Normal Mood/Affect Skin: Normal Color, Warm/Dry Lymphatic: No Adenopathy Results/Procedures Lab Patient resulted labs reviewed. FIM Transfers Therapy Code Descriptions/Definitions Functional [place] Measure: 0=Not Assessed/NA 4=Minimal Assistance 1=Total Assistance 5=Supervision or Setup 2=Maximal Assistance 6=Modified [place] 3=Moderate Assistance 7=Complete IndependenceSCALE: Activities may be completed with or without assistive devices. 1-Xaqonjevwx-vsqgkxx completes the activity by him/herself with no assistance from a helper. 5-Set-up or Clean-up Assistance-helper sets up or cleans up; patient completes activity. [place] assists only prior to or following the activity. 4-Supervision or Touching Assistance-helper provides verbal cues and/or touching/steadying and/or contact guard assistance as patient completes activity. Assistance may be provided throughout the activity or intermittently. 3-Partial/Moderate Assistance-helper does LESS THAN HALF the effort. [place] lifts, holds or supports trunk or limbs, but provides less than half the effort. 2-Substantial/Maximal Assistance-helper does MORE THAN HALF the effort. [place] lifts or holds trunk or limbs and provides more than half the effort. 9-Xghgznonl-wxwhor does ALL the effort. Patient does none of the effort to complete the activity. Or, the assistance of 2 or more helpers is required for the patient to complete the activity. If activity was not attempted, code reason: 7-Patient Refused. 9-Not Applicable-not attempted and the patient did not perform the activity before the current illness, exacerbation or injury. 10-Not Attempted due to Environmental Limitations-(lack of equipment, weather restraints, etc.). 88-Not Attempted due to Medical Conditions or Safety Concerns. Roll Left to Right (QC): 2 Sit to Lying (QC): 2 Sit to Stand (QC): 4 Chair/Lkj-do-Wgxnv Xfer(QC): 3 Car Transfer (QC): 88 Gait Training Does the Patient Walk?: Yes Distance: 75' Walk 10 feet (QC): 4 Walk 50 ft with 2 Turns(QC): 4 Walk 150 ft (QC): 88 Walking 10ft/uneven surface-QC: 88 Gait Persons Needed: 1 Gait Assistive Device: FWW Wheelchair Training Does the Pt Use a Wheelchair?: Yes Distance: 100 ft Wheel 50 ft with 2 turns (QC): 3 Wheel 150 ft (QC): 88 Type of Wheelchair: Manual Stair Training 1 Step (curb) (QC): 9 4 Steps (QC): 9 12 Steps (QC): 9 Balance Picking up an Object (QC): 88 ADL-Treatment Eating (QC): 6 Oral Hygiene (QC): 7 Bathing Location: L Arm, R Arm, L Upper Leg, R Upper Leg, Chest, Abdomen, Buttocks, Perineal Area Shower/Bathe Self (QC): 7 Upper Body Dressing (QC): 7 Lower Body Dressing (QC): 4 (SBA EOB with cues for strap maker use/ precaution management. ) On/Off Footwear (QC): 3 (min A- pt attempts sock aide, able to don sock to sock aide, unable to gather enough UE strength to don sock on foot. Pt requires assist to don sock. Pt then doffs sock with AE, requires assist for use of LH shoe horn for shoe donning success.) Toileting Hygiene (QC): 6 Toilet Transfer (QC): 4 (SUP) Assessment/Plan Assessment and Plan Assess & Plan/Chief Complaint Assessment: s/p right hip fracture with uncomplicated repair by Dr Irizarry UTI PD Smoker Falls Wheezing Plan: Lovenox Fall risk IRF protocol Home meds Cardiology evaluation Nebs O2 ICS Steroids check CXR (1) Pathological fracture of right femur due to osteoporosis (2) Fracture of hip, right, closed Status: Acute (3) UTI (urinary tract infection) (4) Parkinson disease (5) Smoker (6) Wheezing (7) Congestion of upper respiratory tract (8) Constipation (9) Fall Status: Acute SHAYAN LI DO Feb 29, 2020 10:14
--- NOTE | 2020-02-29 10:25 | Physical Therapy Daily Note ---
PT Daily Note-Current Subjective Pt. in w/c in room, agrees to therapy but states "I want to have someone come up and kidnap me...I hate this place." Pt. c/o R hip pain but does not give objective pain rating, states she has been taking pain meds. Mental Status Patient Orientation: Person, Place, Time, Situation Transfers SCALE: Activities may be completed with or without assistive devices. 4-Aneqmkocfi-fwblqpp completes the activity by him/herself with no assistance from a helper. 5-Set-up or Clean-up Assistance-helper sets up or cleans up; patient completes activity. [place] assists only prior to or following the activity. 4-Supervision or Touching Assistance-helper provides verbal cues and/or touching/steadying and/or contact guard assistance as patient completes activity. Assistance may be provided throughout the activity or intermittently. 3-Partial/Moderate Assistance-helper does LESS THAN HALF the effort. [place] lifts, holds or supports trunk or limbs, but provides less than half the effort. 2-Substantial/Maximal Assistance-helper does MORE THAN HALF the effort. [place] lifts or holds trunk or limbs and provides more than half the effort. 0-Brdwcxowo-sralqe does ALL the effort. Patient does none of the effort to complete the activity. Or, the assistance of 2 or more helpers is required for the patient to complete the activity. If activity was not attempted, code reason: 7-Patient Refused. 9-Not Applicable-not attempted and the patient did not perform the activity before the current illness, exacerbation or injury. 10-Not Attempted due to Environmental Limitations-(lack of equipment, weather restraints, etc.). 88-Not Attempted due to Medical Conditions or Safety Concerns. Sit to Stand (QC): 4 Weight Bearing Right Lower Extremity: Right Full Weight Bearing Left Lower Extremity: Left Full Weight Bearing Gait Training Does the Patient Walk?: Yes Distance: 2 x 100 ft Walk 10 feet (QC): 4 Gait Persons Needed: 1 Gait Assistive Device: FWW slow but steady gait, cues needed for proper gait sequence Exercises Seated Therapy Exercises: Ankle pumps, Sit to stand (2 x 5 reps), Long arc quads Seated Reps: 20 NuStep Minutes: 15 NuStep Workload: 5 Treatments gait, LE ROM and strengthening exercise Assessment Current Status: Good Progress Pt. is showing good improvement in gait ability, although continued antaglia on the R. Pt. fatigues with LE exercises and overall needs motivation to increase activity level. Pt. returned to room, seated in w/c with call light and all needs met. PT Care Home Goals Care Home Goals PT Forest Fire Control Officer Goals Time Frame: March 11, 2020 Roll Left & Right (QC): 6 Sit to Lying (QC): 6 Lying-Sitting on Side/Bed(QC): 6 Sit to Stand (QC): 6 Chair/Cmh-rw-Mpjah Xfer(QC): 6 Toilet Transfer (QC): 6 Car Transfer (QC): 4 Does the Patient Walk: Yes Walk 10 feet (QC): 6 Walk 50ft with 2 Turns (QC): 6 Walk 150 ft (QC): 6 Walking 10ft on Uneven Surface: 4 1 Step (curb) (QC): 9 4 Steps (QC): 9 12 Steps (QC): 9 Picking up an Object (QC): 88 Wheel 50 feet with 2 turns (QC: 9 Wheel 150 feet: 9 PT Plan Treatment/Plan Treatment Plan: Continue Plan of Care Treatment Plan: Bed Mobility, Concurrent Therapy, Education, Functional Activity Ramon, Functional Strength, Group Therapy, Gait, Safety, Therapeutic Exercise, Transfers Treatment Duration: March 11, 2020 Frequency: 6 times per week Estimated Hrs Per Day: 1.5 hours per day Patient and/or Family Agrees t: Yes Time/GCodes Time In: 915 Time Out: 1015 Total Billed Treatment Time: 60 Total Billed Treatment 1, GT 20', Ex 40' BHUMI DIAZ PT Feb 29, 2020 10:25
--- NOTE | 2020-02-29 11:33 | Diagnostic Imaging Report ---
PROCEDURE: US right lower extremity venous. TECHNIQUE: Multiple real-time grayscale images were obtained over the right lower extremity in various projections. Additional spectral analysis and color Doppler duplex images were also obtained. INDICATION: Recent hip surgery. Patient now has right leg swelling. FINDINGS: There is no evidence of a right lower extremity DVT. The right lower extremity deep venous system shows normal compressibility with normal response to augmentation and Valsalva. No fluid collection or mass is identified. IMPRESSION: No evidence of right lower extremity DVT. Dictated by: Dictated on workstation # [id number]
[2020-02-29] MEDS: LACTOBACILLUS ACIDOPHILUS (PROBIOTIC) CAPSULE PO SCH ×2 (12:00→17:16)
--- NOTE | 2020-02-29 12:00 | NUR ---
STEROIDS ORDERED PER DR. LI... SOLU-MEDROL- 90 MG IM X1 TODAY. PREDNISONE- 40 MG PO ON 03/01/20, 30 MG PO ON 03/02/20, 20 MG PO ON 03/03/20, 10 MG PO ON 03/04/20. THEN STOP. DR. TELLES NOTIFIED AND OK WITH ABOVE. ALSO INFORMED OF NEGATIVE DOPPLER.
--- NOTE | 2020-02-29 12:22 | NUR ---
DRESSING CHANGE TO RIGHT HIP INCISION. INCISION IS WELL APPROXIMATED WITH RHONA INTACT. SMALL AMOUNT OF DRAINAGE NOTED. INCISION LINE CLEANSED WITH ALCOHOL PADS. [place] APPLIED TO SURROUNDING TISSUE. [place] DRESSING APPLIED. PATIENT TOLERATED WELL.
[2020-02-29] MEDS ORDERED: methylPREDNISolone 125 MG (Solu-MEDROL) VIAL IM ONE (12:30)
--- NOTE | 2020-02-29 13:27 | Occupational Ther Daily Note ---
OT Current Status-Daily Note Subjective Pt alert, sitting in recliner. Pt states that she can't get any rest here and can't wait to get home. No c/o pain at this time. Pt agrees to therapy. Mental Status/Objective Patient Orientation: Person, Place, Time, Situation ADL-Treatment Therapy Code Descriptions/Definitions Functional [place] Measure: 0=Not Assessed/NA 4=Minimal Assistance 1=Total Assistance 5=Supervision or Setup 2=Maximal Assistance 6=Modified [place] 3=Moderate Assistance 7=Complete IndependenceSCALE: Activities may be completed with or without assistive devices. 5-Dhqlvqfopp-evvkoop completes the activity by him/herself with no assistance from a helper. 5-Set-up or Clean-up Assistance-helper sets up or cleans up; patient completes activity. [place] assists only prior to or following the activity. 4-Supervision or Touching Assistance-helper provides verbal cues and/or touching/steadying and/or contact guard assistance as patient completes activity. Assistance may be provided throughout the activity or intermittently. 3-Partial/Moderate Assistance-helper does LESS THAN HALF the effort. [place] lifts, holds or supports trunk or limbs, but provides less than half the effort. 2-Substantial/Maximal Assistance-helper does MORE THAN HALF the effort. [place] lifts or holds trunk or limbs and provides more than half the effort. 9-Plrypaigj-nktsxk does ALL the effort. Patient does none of the effort to complete the activity. Or, the assistance of 2 or more helpers is required for the patient to complete the activity. If activity was not attempted, code reason: 7-Patient Refused. 9-Not Applicable-not attempted and the patient did not perform the activity before the current illness, exacerbation or injury. 10-Not Attempted due to Environmental Limitations-(lack of equipment, weather restraints, etc.). 88-Not Attempted due to Medical Conditions or Safety Concerns. Other Treatment Pt completed light resistance theraband exercises for B UE to increase strength for daily functional tasks. Pt requires skilled instructions to complete each exercise with correct technique to improve positioning during exercise. After therapy, pt sitting in recliner with call light/phone in reach. All needs met in room. OT Short Term Goals Short Term Goals Lower body dressin Putting on/taking off footwear: 5 OT Mcc Goals Cargo Tank Mechanic Goals Time Frame: March 11, 2020 Eating (QC): 6 Oral Hygiene (QC): 6 Toileting Hygiene (QC): 6 Shower/Bathe Self (QC): 6 Upper Body Dressing (QC): 6 Lower Body Dressing (QC): 6 On/Off Footwear (QC): 6 Additional Goals: 1-Demonstrate ADL Tasks, 2-Verbalize Understanding, 3- ImproveStrength/Ramon 1=Demonstrate adherence to instructed precautions during ADL tasks. 2=Patient will verbalize/demonstrate understanding of assistive devices/modifications for ADL. 3=Patient will improve strength/tolerance for activity to enable patient to perform ADL's. OT Education/Plan Problem List/Assessment Assessment: Decreased Activ Tolerance, Decreased UE Strength Discharge Recommendations Plan/Recommendations: Continue POC Treatment Plan/Plan of Care Patient would benefit from OT for education, treatment and training to promote independence in ADL's, mobility, safety and/or upper extremity function for ADL's. Plan of Care: ADL Retraining, Concurrent Therapy, Functional Mobility, Group Exercise/Act as Ind, UE Funct Exercise/Act, W/C Management Training Treatment Duration: March 11, 2020 Frequency: At least 5 of 7 days/Wk (IRF) Estimated Hrs Per Day: 1.5 hours per day Agreement: Yes Rehab Potential: Good Time/GCodes Start Time: 13:00 Stop Time: 13:15 Total Time Billed (hr/min): 15 Billed Treatment Time 1 visit-EX 1 (15 min) SUNNY GOMEZ Feb 29, 2020 13:27
--- NOTE | 2020-02-29 14:22 | Physical Therapy Daily Note ---
PT Daily Note-Current Subjective Pt. in bedside chair and agrees to therapy. She denies pain at present time. Transfers SCALE: Activities may be completed with or without assistive devices. 8-Caurlkyidt-nixnglc completes the activity by him/herself with no assistance from a helper. 5-Set-up or Clean-up Assistance-helper sets up or cleans up; patient completes activity. [place] assists only prior to or following the activity. 4-Supervision or Touching Assistance-helper provides verbal cues and/or touching/steadying and/or contact guard assistance as patient completes activity. Assistance may be provided throughout the activity or intermittently. 3-Partial/Moderate Assistance-helper does LESS THAN HALF the effort. [place] lifts, holds or supports trunk or limbs, but provides less than half the effort. 2-Substantial/Maximal Assistance-helper does MORE THAN HALF the effort. [place] lifts or holds trunk or limbs and provides more than half the effort. 0-Ixemyhgva-talufl does ALL the effort. Patient does none of the effort to complete the activity. Or, the assistance of 2 or more helpers is required for the patient to complete the activity. If activity was not attempted, code reason: 7-Patient Refused. 9-Not Applicable-not attempted and the patient did not perform the activity before the current illness, exacerbation or injury. 10-Not Attempted due to Environmental Limitations-(lack of equipment, weather restraints, etc.). 88-Not Attempted due to Medical Conditions or Safety Concerns. Sit to Stand (QC): 5 Toilet Transfer (QC): 6 Weight Bearing Right Lower Extremity: Right Full Weight Bearing Left Lower Extremity: Left Full Weight Bearing Gait Training Does the Patient Walk?: Yes Distance: x 250 ft Walk 150 ft (QC): 4 Gait Persons Needed: 1 Gait Assistive Device: FWW slow gait and antaglia on the R but steady Treatments toileting, gait training Assessment Current Status: Good Progress Pt. is progressing very well with therapy; able to increase ambulation distance and she is utilizing a more step-through gait pattern. Pt. returned to bedside chair post session, all needs met, call light in reach. PT Care Home Goals Care Home Goals PT Plate Cleaner Goals Time Frame: March 11, 2020 Roll Left & Right (QC): 6 Sit to Lying (QC): 6 Lying-Sitting on Side/Bed(QC): 6 Sit to Stand (QC): 6 Chair/Sag-vp-Otldf Xfer(QC): 6 Toilet Transfer (QC): 6 Car Transfer (QC): 4 Does the Patient Walk: Yes Walk 10 feet (QC): 6 Walk 50ft with 2 Turns (QC): 6 Walk 150 ft (QC): 6 Walking 10ft on Uneven Surface: 4 1 Step (curb) (QC): 9 4 Steps (QC): 9 12 Steps (QC): 9 Picking up an Object (QC): 88 Wheel 50 feet with 2 turns (QC: 9 Wheel 150 feet: 9 PT Plan Treatment/Plan Treatment Plan: Continue Plan of Care Treatment Plan: Bed Mobility, Concurrent Therapy, Education, Functional Activity Ramon, Functional Strength, Group Therapy, Gait, Safety, Therapeutic Exercise, Transfers Treatment Duration: March 11, 2020 Frequency: 6 times per week Estimated Hrs Per Day: 1.5 hours per day Patient and/or Family Agrees t: Yes Time/GCodes Time In: 1321 Time Out: 1336 Total Billed Treatment Time: 15 Total Billed Treatment 1, GT 10', (FA 5') BHUMI DIAZ PT Feb 29, 2020 14:22
--- NOTE | 2020-02-29 14:32 | Speech Therapy Daily Note ---
Speech Daily Progress Note Subjective Date Seen by Provider: Feb 29, 2020 Time Seen by Provider: 00:30 Patient was resting in her bed playing on her tablet when I entered her room. Objective Patient completed a series of problem solving tasks related to her return home with 85% given minimal cues. Assessment Assessment Current Status: Good Progress Treatment Plan Continue Plan of Care Speech Short Term Goals Short Term Goals Short Term Goals 1) Patient will complete memory tasks related to her daily needs at 90% with minimal cues. 1) Patient will complete memory tasks related to her daily needs at 90% with minimal cues. 2) Patient will complete safety awareness tasks related to her daily needs at 90% with minimal cues. 3) Patient will complete problem solving tasks related to her daily needs at 90% with minimal cues. Speech Mcc Goals Clinical Quality Analyst Goals Patient will improve cognitive-communication necessary for safety and daily living tasks with minimal assist. Speech-Plan Patient/Family Goals Patient/Family Goals: Patient plans on returning to her home when she is discharged. Treatment Plan Speech Therapy Treatment Plan: Continue Plan of Care Treatment Duration: March 08, 2020 Frequency: 5 times per week Estimated Hrs Per Day: .5 hour per day Rehab Potential: Good Barriers to Learning: Patient's recent medical status Pt/Family Agrees to Plan: Yes Safety Risks/Education Teaching Recipient: Patient Teaching Methods: Demonstration, Discussion Response to Teaching: Verbalize Understanding, Return Demonstration Education Topics Provided: Safety within her room and communication of wants/needs Time Speech Therapy Time In: 14:00 Speech Therapy Time Out: 14:30 Total Billed Time: 30 Billed Treatment Time 1, ANTONIA Ames Feb 29, 2020 14:32
[2020-02-29 16:21] VITALS: BP_SYST 111; BP_SYST 118; BP_DIAS 65; BP_DIAS 73
--- NOTE | 2020-02-29 16:43 | Progress Note ---
Standard Progress Note Progress Notes/Assess & Plan Date Seen by a Provider: Feb 29, 2020 Time Seen by a Provider: 08:30 Progress/Assessment & Plan no complaints Vital Signs Date Time Temp Pulse Resp B/P (MAP) Pulse Ox O2 Delivery O2 Flow Rate FiO2 02/27/20 05:43 37.0 74 18 135/76 (95) 93 Room Air 02/26/20 21:00 Room Air 02/26/20 17:39 37.6 80 18 136/67 (90) 90 Room Air 02/26/20 12:55 Room Air 02/26/20 12:32 37.7 80 16 112/51 91 Room Air I & O 02/27/20 07:00 Intake Total 350 ml Balance 350 ml Laboratory Tests Test 02/27/20 04:56 Range/Units White Blood Count 10.2 4.3-11.0 10^3/uL Red Blood Count 3.72 L 4.35-5.85 10^6/uL Hemoglobin 10.2 L 11.5-16.0 G/DL Hematocrit 32 L 35-52 % Mean Corpuscular Volume 86 80-99 FL Mean Corpuscular Hemoglobin 27 25-34 PG Mean Corpuscular Hemoglobin Concent 32 32-36 G/DL Red Cell Distribution Width 13.5 10.0-14.5 % Platelet Count 216 130-400 10^3/uL Mean Platelet Volume 10.4 7.4-10.4 FL Neutrophils (%) (Auto) 51 42-75 % Lymphocytes (%) (Auto) 33 12-44 % Monocytes (%) (Auto) 12 0-12 % Eosinophils (%) (Auto) 4 0-10 % Basophils (%) (Auto) 0 0-10 % Neutrophils # (Auto) 5.2 1.8-7.8 X 10^3 Lymphocytes # (Auto) 3.4 1.0-4.0 X 10^3 Monocytes # (Auto) 1.2 H 0.0-1.0 X 10^3 Eosinophils # (Auto) 0.4 H 0.0-0.3 10^3/uL Basophils # (Auto) 0.0 0.0-0.1 10^3/uL Sodium Level 139 135-145 MMOL/L Potassium Level 3.8 3.6-5.0 MMOL/L Chloride Level 104 98-107 MMOL/L Carbon Dioxide Level 24 21-32 MMOL/L Anion Gap 11 5-14 MMOL/L Blood Urea Nitrogen 10 7-18 MG/DL Creatinine 0.63 0.60-1.30 MG/DL Estimat Glomerular Filtration Rate > 60 BUN/Creatinine Ratio 16 Glucose Level 121 H 70-105 MG/DL Calcium Level 8.8 8.5-10.1 MG/DL Corrected Calcium 9.2 8.5-10.1 MG/DL Total Bilirubin 0.8 0.1-1.0 MG/DL Aspartate Amino Transf (AST/SGOT) 59 H 5-34 U/L Alanine Aminotransferase (ALT/SGPT) 63 H 0-55 U/L Alkaline Phosphatase 110 40-136 U/L Total Protein 6.1 L 6.4-8.2 GM/DL Albumin 3.5 3.2-4.5 GM/DL able to perform SLR. No calf tenderness s/p R hip bipolar continue PT/OT Final Diagnosis complains of burning right leg pain like a pinched nerve RLENeg Slr able to perform SLR min discomfort with hip ROM IMPS/P right hip bipolar with likely lumbar radiculopathy will check US to r/o DVT continue PT/OT PERI TELLES MD Feb 29, 2020 16:43
[2020-02-29] MEDS: GABAPENTIN 100 MG (NEURONTIN) CAP PO SCH (21:17)
[2020-02-29] MEDS: MONTELUKAST 10 MG (SINGULAIR) TAB PO SCH (21:17)
[2020-03-01 05:57] VITALS: BP 147/66
[2020-03-01] MEDS: MULTIVIT W/MINERALS TAB (THERAGRAN M) PO SCH (06:42)
[2020-03-01] MEDS: HYDROcodone/APAP 7.5 MG/325 MG (LORTAB, LORCET PLUS) TABLET PO PRN ×3 (06:42→22:24)
[2020-03-01] MEDS: predniSONE 20 MG TAB PO SCH (06:42)
[2020-03-01] MEDS: ADVAIR HFA 115/21 MCG INHALER 8 GM IH SCH ×2 (07:01→19:21)
[2020-03-01] MEDS: RT-ALBUTEROL/IPRATROPIUM 3 ML (DUONEB) VIAL INH SCH ×3 (07:01→19:21)
[2020-03-01] MEDS: LACTOBACILLUS ACIDOPHILUS (PROBIOTIC) CAPSULE PO SCH ×3 (09:25→16:30)
[2020-03-01] MEDS: CEPHALEXIN 250 MG (KEFLEX) CAP PO SCH ×2 (09:25→20:38)
[2020-03-01] MEDS: ASPIRIN E.C. 81 MG (ECOTRIN) TAB PO SCH (09:25)
[2020-03-01] MEDS: ENOXAPARIN 40 MG/0.4 ML (LOVENOX) SYR SC SCH (09:26)
[2020-03-01] MEDS: LORATADINE (CLARITIN) 10 MG TAB PO SCH (09:26)
[2020-03-01] MEDS: SINEMET 25/100 (CARBIDOPA/LEVODOPA) TAB PO SCH ×4 (09:26→20:38)
[2020-03-01] MEDS: DOCUSATE SODIUM 100 MG (COLACE) CAP PO SCH ×3 (09:27→20:41)
[2020-03-01] MEDS: DICLOFENAC 1% GEL 100 GM (VOLTAREN) TUBE TOP SCH ×4 (09:27→20:41)
[2020-03-01] MEDS: SENNOSIDES 8.6 MG (SENOKOT) TAB PO SCH ×3 (09:27→20:41)
[2020-03-01] MEDS: polyethylene glycoL POWDER 17 GM (MIRALAX) PACK PO SCH ×2 (09:27→20:41)
[2020-03-01] MEDS: SENNA W/DOCUSATE (SENOKOT S) TABLET PO SCH ×2 (09:31→20:41)
--- NOTE | 2020-03-01 09:47 | Physical Therapy Daily Note ---
PT Daily Note-Current Subjective Pt agreeable. Denied pain at rest, reports (R) hip is "sore" with ambulation but not rated. Mental Status Patient Orientation: Person, Place, Time, Situation Transfers SCALE: Activities may be completed with or without assistive devices. 6-Eeknxiaoqs-iwrgaum completes the activity by him/herself with no assistance from a helper. 5-Set-up or Clean-up Assistance-helper sets up or cleans up; patient completes activity. [place] assists only prior to or following the activity. 4-Supervision or Touching Assistance-helper provides verbal cues and/or touching/steadying and/or contact guard assistance as patient completes activity . Assistance may be provided throughout the activity or intermittently. 3-Partial/Moderate Assistance-helper does LESS THAN HALF the effort. [place] lifts, holds or supports trunk or limbs, but provides less than half the effort. 2-Substantial/Maximal Assistance-helper does MORE THAN HALF the effort. [place] lifts or holds trunk or limbs and provides more than half the effort. 6-Tpwjozzii-pnhvlv does ALL the effort. Patient does none of the effort to complete the activity. Or, the assistance of 2 or more helpers is required for the patient to complete the activity. If activity was not attempted, code reason: 7-Patient Refused. 9-Not Applicable-not attempted and the patient did not perform the activity before the current illness, exacerbation or injury. 10-Not Attempted due to Environmental Limitations-(lack of equipment, weather restraints, etc.). 88-Not Attempted due to Medical Conditions or Safety Concerns. Sit to Lying (QC): 5 Lying to Sitting/Side of Bed(Q: 4 Sit to Stand (QC): 5 Weight Bearing Right Lower Extremity: Right Full Weight Bearing Left Lower Extremity: Left Full Weight Bearing Gait Training Does the Patient Walk?: Yes Distance: 250 Walk 10 feet (QC): 5 Walk 50 ft with 2 Turns(QC): 5 Walk 150 ft (QC): 5 Gait Persons Needed: 1 Gait Assistive Device: FWW Pt ambulates with slow but steady gait. Step-through gait pattern but with va rying step length at times with mildly decreased stance time on (R) LE. Wheelchair Training Does the Pt Use a Wheelchair?: No Exercises Supine Ex: Short Arc Quads, Resisted flex/ext, Hip abd/add Supine Reps: 15 NuStep Minutes: 20 NuStep Workload: 5 Treatments Gait training with FWW, LE functional exercises and NuStep for activity tolerance, functional strengthening. Hand off to OT Assessment Current Status: Good Progress Pt tolerated well. Gait antalgic but improving. PT Mcfp Goals Mcfp Goals PT Brass Wind Instruments Tube Bender Goals Time Frame: March 11, 2020 Roll Left & Right (QC): 6 Sit to Lying (QC): 6 Lying-Sitting on Side/Bed(QC): 6 Sit to Stand (QC): 6 Chair/Ctx-qa-Kjelk Xfer(QC): 6 Toilet Transfer (QC): 6 Car Transfer (QC): 4 Does the Patient Walk: Yes Walk 10 feet (QC): 6 Walk 50ft with 2 Turns (QC): 6 Walk 150 ft (QC): 6 Walking 10ft on Uneven Surface: 4 1 Step (curb) (QC): 9 4 Steps (QC): 9 12 Steps (QC): 9 Picking up an Object (QC): 88 Wheel 50 feet with 2 turns (QC: 9 Wheel 150 feet: 9 PT Plan Problem List Problem List: Activity Tolerance, Functional Strength, Safety, Balance, Gait, Transfer, Bed Mobility, ROM Treatment/Plan Treatment Plan: Continue Plan of Care Treatment Plan: Bed Mobility, Concurrent Therapy, Education, Functional Activity Ramon, Functional Strength, Group Therapy, Gait, Safety, Therapeutic Exercise, Transfers Treatment Duration: March 11, 2020 Frequency: 6 times per week Estimated Hrs Per Day: 1.5 hours per day Patient and/or Family Agrees t: Yes Safety Risks/Education Patient Education: Gait Training Teaching Recipient: Patient Teaching Methods: Discussion Response to Teaching: Verbalize Understanding Time/GCodes Time In: 829 Time Out: 914 Total Billed Treatment Time: 45 Total Billed Treatment 1, GT x 15', Ex x 30' MAGEN FREDERICK DPT March 01, 2020 09:47
--- NOTE | 2020-03-01 10:45 | PM&R Progress Note ---
Subjective HPI/CC On Admission Date Seen by Provider: March 01, 2020 Time Seen by Provider: 10:45 Subjective/Events-last exam Bowel movements regular but will maintain close eye on that considering pain meds and PD Much improved right leg and thigh and back pain since steroid injection COPD exacerbation is greatly improved since steroids given and she is breathing better No falls No DVT on USG Overall much improved from lung and hip standpoint Conferred with RN Reviewed therapy notes Checked meds and labs Review of Systems Pulmonary: Dyspnea Musculoskeletal: leg pain Objective Exam Vital Signs Vital Signs Date Time Temp Pulse Resp B/P (MAP) Pulse Ox O2 Delivery O2 Flow Rate FiO2 03/01/20 21:00 Room Air 03/01/20 19:21 94 03/01/20 19:00 36.8 74 16 133/69 (90) Capillary Refill : Less Than 3 SecondsLess Than 3 Seconds General Appearance: No Apparent Distress, WD/WN, Chronically ill, Obese HEENT: PERRL/EOMI, Normal ENT Inspection, Pharynx Normal Neck: Full Range of Motion, Normal Inspection, Non Tender, Supple, Carotid Bruit Respiratory: Chest Non Tender, Lungs Clear, Normal Breath Sounds, No Accessory Muscle Use, No Respiratory Distress Cardiovascular: Regular Rate, Rhythm, No Edema, No Gallop, No JVD, No Murmur, Normal Peripheral Pulses Gastrointestinal: Normal Bowel Sounds, No Organomegaly, No Pulsatile Mass, Non Tender, Soft Back: Normal Inspection, No CVA Tenderness, No Vertebral Tenderness Extremity: Normal Capillary Refill, Normal Inspection, Normal Range of Motion (except right leg from hip fracture site), Non Tender, No Calf Tenderness, No Pedal Edema Neurologic/Psychiatric: Alert, Oriented x3, No Motor/Sensory Deficits, Normal Mood/Affect Skin: Normal Color, Warm/Dry Lymphatic: No Adenopathy Results/Procedures Lab Patient resulted labs reviewed. FIM Transfers Therapy Code Descriptions/Definitions Functional [place] Measure: 0=Not Assessed/NA 4=Minimal Assistance 1=Total Assistance 5=Supervision or Setup 2=Maximal Assistance 6=Modified [place] 3=Moderate Assistance 7=Complete IndependenceSCALE: Activities may be completed with or without assistive devices. 7-Elfvlkvkiw-vkvamge completes the activity by him/herself with no assistance from a helper. 5-Set-up or Clean-up Assistance-helper sets up or cleans up; patient completes activity. [place] assists only prior to or following the activity. 4-Supervision or Touching Assistance-helper provides verbal cues and/or touching/steadying and/or contact guard assistance as patient completes activity. Assistance may be provided throughout the activity or intermittently. 3-Partial/Moderate Assistance-helper does LESS THAN HALF the effort. [place] lifts, holds or supports trunk or limbs, but provides less than half the effort. 2-Substantial/Maximal Assistance-helper does MORE THAN HALF the effort. [place] lifts or holds trunk or limbs and provides more than half the effort. 4-Brmsowiec-lokbkh does ALL the effort. Patient does none of the effort to complete the activity. Or, the assistance of 2 or more helpers is required for the patient to complete the activity. If activity was not attempted, code reason: 7-Patient Refused. 9-Not Applicable-not attempted and the patient did not perform the activity before the current illness, exacerbation or injury. 10-Not Attempted due to Environmental Limitations-(lack of equipment, weather restraints, etc.). 88-Not Attempted due to Medical Conditions or Safety Concerns. Roll Left to Right (QC): 2 Sit to Lying (QC): 5 Sit to Stand (QC): 5 Chair/Qjl-ta-Tnygr Xfer(QC): 3 Car Transfer (QC): 88 Gait Training Does the Patient Walk?: Yes Distance: 250 Walk 10 feet (QC): 5 Walk 50 ft with 2 Turns(QC): 5 Walk 150 ft (QC): 5 Walking 10ft/uneven surface-QC: 88 Gait Persons Needed: 1 Gait Assistive Device: FWW Wheelchair Training Does the Pt Use a Wheelchair?: No Distance: 100 ft Wheel 50 ft with 2 turns (QC): 3 Wheel 150 ft (QC): 88 Type of Wheelchair: Manual Stair Training 1 Step (curb) (QC): 9 4 Steps (QC): 9 12 Steps (QC): 9 Balance Picking up an Object (QC): 88 ADL-Treatment Eating (QC): 6 Oral Hygiene (QC): 7 Bathing Location: L Arm, R Arm, L Upper Leg, R Upper Leg, Chest, Abdomen, Buttocks, Perineal Area Shower/Bathe Self (QC): 7 Upper Body Dressing (QC): 7 Lower Body Dressing (QC): 4 (SBA EOB with cues for digital solution architect use/ precaution management. ) On/Off Footwear (QC): 3 (min A- pt attempts sock aide, able to don sock to sock aide, unable to gather enough UE strength to don sock on foot. Pt requires assist to don sock. 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
--- NOTE | 2020-03-01 11:43 | Occupational Ther Daily Note ---
OT Current Status-Daily Note Subjective Pt sitting EOB, agrees to treatment. Pt reports 6/10 right LE pain. ADL-Treatment Pt states she feels stiff, requests to ambulate. Sit to stand with SBA. Pt perf ormed gait around rehab unit with FWW and slow pace. No LOB noted. Pt used residential real estate assistant to pick items off of floor to increase safety and balance for tasks at home. Pt able to complete task without LOB. Pt returned to EOB and performed sit to supine with SBA. Pt resting in bed with needs met after session. Therapy Code Descriptions/Definitions Functional [place] Measure: 0=Not Assessed/NA 4=Minimal Assistance 1=Total Assistance 5=Supervision or Setup 2=Maximal Assistance 6=Modified [place] 3=Moderate Assistance 7=Complete IndependenceSCALE: Activities may be completed with or without assistive devices. 3-Glyqystyek-amqovsd completes the activity by him/herself with no assistance from a helper. 5-Set-up or Clean-up Assistance-helper sets up or cleans up; patient completes activity. [place] assists only prior to or following the activity. 4-Supervision or Touching Assistance-helper provides verbal cues and/or touching/steadying and/or contact guard assistance as patient completes activity. Assistance may be provided throughout the activity or intermittently. 3-Partial/Moderate Assistance-helper does LESS THAN HALF the effort. [place] lifts, holds or supports trunk or limbs, but provides less than half the effort. 2-Substantial/Maximal Assistance-helper does MORE THAN HALF the effort. [place] lifts or holds trunk or limbs and provides more than half the effort. 5-Efwbgirrx-irlmvk does ALL the effort. Patient does none of the effort to complete the activity. Or, the assistance of 2 or more helpers is required for the patient to complete the activity. If activity was not attempted, code reason: 7-Patient Refused. 9-Not Applicable-not attempted and the patient did not perform the activity before the current illness, exacerbation or injury. 10-Not Attempted due to Environmental Limitations-(lack of equipment, weather restraints, etc.). 88-Not Attempted due to Medical Conditions or Safety Concerns. OT Short Term Goals Short Term Goals Lower body dressin Putting on/taking off footwear: 5 OT Intermediate Goals Senior It Recruiter Goals Time Frame: March 11, 2020 Eating (QC): 6 Oral Hygiene (QC): 6 Toileting Hygiene (QC): 6 Shower/Bathe Self (QC): 6 Upper Body Dressing (QC): 6 Lower Body Dressing (QC): 6 On/Off Footwear (QC): 6 Additional Goals: 1-Demonstrate ADL Tasks, 2-Verbalize Understanding, 3- ImproveStrength/Ramon 1=Demonstrate adherence to instructed precautions during ADL tasks. 2=Patient will verbalize/demonstrate understanding of assistive devices/modifications for ADL. 3=Patient will improve strength/tolerance for activity to enable patient to perform ADL's. OT Education/Plan Discharge Recommendations Plan/Recommendations: Continue POC Treatment Plan/Plan of Care Patient would benefit from OT for education, treatment and training to promote independence in ADL's, mobility, safety and/or upper extremity function for ADL's. Plan of Care: ADL Retraining, Concurrent Therapy, Functional Mobility, Group Exercise/Act as Ind, UE Funct Exercise/Act, W/C Management Training Treatment Duration: March 11, 2020 Frequency: At least 5 of 7 days/Wk (IRF) Estimated Hrs Per Day: 1.5 hours per day Agreement: Yes Rehab Potential: Good Time/GCodes Start Time: 10:55 Stop Time: 11:05 Total Time Billed (hr/min): 15 Billed Treatment Time 1 visit, FA(15minutes) [facility] OT March 01, 2020 11:43
--- NOTE | 2020-03-01 13:25 | Occupational Ther Daily Note ---
OT Current Status-Daily Note Subjective Pt seen in therapy gym with PT, pt agrees to OT tx session. Pt walks back with 2WW to room. Pt expresses she is stressed due to being away from work and urgency at work, on phone during sponge bath intermittently. Mental Status/Objective Patient Orientation: Person, Place, Time, Situation ADL-Treatment Therapy Code Descriptions/Definitions Functional [place] Measure: 0=Not Assessed/NA 4=Minimal Assistance 1=Total Assistance 5=Supervision or Setup 2=Maximal Assistance 6=Modified [place] 3=Moderate Assistance 7=Complete IndependenceSCALE: Activities may be completed with or without assistive devices. 2-Hmtciuwncr-mxogtvt completes the activity by him/herself with no assistance from a helper. 5-Set-up or Clean-up Assistance-helper sets up or cleans up; patient completes activity. [place] assists only prior to or following the activity. 4-Supervision or Touching Assistance-helper provides verbal cues and/or t ouching/steadying and/or contact guard assistance as patient completes activity. Assistance may be provided throughout the activity or intermittently. 3-Partial/Moderate Assistance-helper does LESS THAN HALF the effort. [place] lifts, holds or supports trunk or limbs, but provides less than half the effort. 2-Substantial/Maximal Assistance-helper does MORE THAN HALF the effort. [place] lifts or holds trunk or limbs and provides more than half the effort. 1-Bkybvjbdt-bhibhe does ALL the effort. Patient does none of the effort to complete the activity. Or, the assistance of 2 or more helpers is required for the patient to complete the activity. If activity was not attempted, code reason: 7-Patient Refused. 9-Not Applicable-not attempted and the patient did not perform the activity before the current illness, exacerbation or injury. 10-Not Attempted due to Environmental Limitations-(lack of equipment, weather restraints, etc.). 88-Not Attempted due to Medical Conditions or Safety Concerns. Eating (QC): 6 Oral Hygiene (QC): 6 Bathing Location: L Arm, R Arm, L Upper Leg, R Upper Leg, L Lower Leg (including foot), R Lower Leg (including foot), Chest, Abdomen, Buttocks, Perineal Area Shower/Bathe Self (QC): 4 (SUP in stance. SBA during LB washing due to precaution managmenet. ) Upper Body Dressing (QC): 6 Lower Body Dressing (QC): 4 (cues for importance of precautions. ) On/Off Footwear: 3 (min A- pt frustrated with task, requires assist. ) Toileting Hygiene (QC): 6 Toilet Transfer (QC): 4 (SUP) Other Treatment Pt completes bathing tasks in room, declines showering but agreeable to sponge bath. pt dons clothing/ completes ADLs as above. Pt completes ther ex in stance at 2WW level- completes theraband exercises (2 sets of 15 reps bilaterally): shoulder flexion, shoulder scaption, back pulls, bicep curls. Pt and OT discuss pain management and edema management techniques: pt completes abdominal breathing tasks, educated on retrograde massage for edema, completed to L LE with skilled emphasis of pushing edema away from incision line. Pt left EOB w ith call light in reach, all needs met, reiteration required to press call light if she wants to get to chair. Education OT Patient Education: Correct positioning, Exercise program, Home exercise program, Modified ADL techniques, Progress toward Goal/Update tx plan, Reviewed precautions, Safety issues, Use of adapted equipment Teaching Recipient: Patient Teaching Methods: Demonstration, Discussion Response to Teaching: Verbalize Understanding, Return Demonstration, Reinforcement Needed OT Short Term Goals Short Term Goals Lower body dressin Putting on/taking off footwear: 5 OT Retirement Goals Soft Hat Binder Goals Time Frame: March 11, 2020 Eating (QC): 6 Oral Hygiene (QC): 6 Toileting Hygiene (QC): 6 Shower/Bathe Self (QC): 6 Upper Body Dressing (QC): 6 Lower Body Dressing (QC): 6 On/Off Footwear (QC): 6 Additional Goals: 1-Demonstrate ADL Tasks, 2-Verbalize Understanding, 3-Impro veStrength/Ramon 1=Demonstrate adherence to instructed precautions during ADL tasks. 2=Patient will verbalize/demonstrate understanding of assistive devices/modifications for ADL. 3=Patient will improve strength/tolerance for activity to enable patient to perform ADL's. OT Education/Plan Problem List/Assessment Assessment: Decreased Activ Tolerance, Decreased Safety Aware, Edema Discharge Recommendations Plan/Recommendations: Continue POC Therapy Discharge Recommendati: Intermittent Supervision Treatment Plan/Plan of Care Treatment,Training & Education: Yes Patient would benefit from OT for education, treatment and training to promote independence in ADL's, mobility, safety and/or upper extremity function for ADL's. Plan of Care: ADL Retraining, Concurrent Therapy, Functional Mobility, Group Exercise/Act as Ind, UE Funct Exercise/Act, W/C Management Training Treatment Duration: March 11, 2020 Frequency: At least 5 of 7 days/Wk (IRF) Estimated Hrs Per Day: 1.5 hours per day Agreement: Yes Rehab Potential: Good Time/GCodes Start Time: 09:15 Stop Time: 10:15 Total Time Billed (hr/min): 60 Billed Treatment Time 1, ADL 2, MAN, EX (60) GAVINO LIVINGSTON OTR March 01, 2020 13:25
--- NOTE | 2020-03-01 13:36 | Speech Therapy Daily Note ---
Speech Daily Progress Note Subjective Date Seen by Provider: March 01, 2020 Time Seen by Provider: 00:30 Patient was resting in her bed following her PT session when I entered her room. The patient was very talkative today. Objective Patient completed a series of problem solving tasks related to her daily needs with 90% given minimal verbal/visual cuing. Assessment Assessment Current Status: Good Progress Treatment Plan Continue Plan of Care Speech Short Term Goals Short Term Goals Short Term Goals 1) Patient will complete memory tasks related to her daily needs at 90% with minimal cues. 1) Patient will complete memory tasks related to her daily needs at 90% with minimal cues. 2) Patient will complete safety awareness tasks related to her daily needs at 90% with minimal cues. 3) Patient will complete problem solving tasks related to her daily needs at 90% with minimal cues. Speech Engraver Pantograph Goals Skilled Nursing Goals Patient will improve cognitive-communication necessary for safety and daily living tasks with minimal assist. Speech-Plan Patient/Family Goals Patient/Family Goals: Patient plans on returning to her apartment and her job upon hospital discharge. Treatment Plan Speech Therapy Treatment Plan: Continue Plan of Care Treatment Duration: March 08, 2020 Frequency: 5 times per week Estimated Hrs Per Day: .5 hour per day Rehab Potential: Good Barriers to Learning: Patient's recent hip fracture, impulsivity Pt/Family Agrees to Plan: Yes Safety Risks/Education Teaching Recipient: Patient Teaching Methods: Demonstration, Discussion Response to Teaching: Verbalize Understanding, Return Demonstration Education Topics Provided: Safety within her room and communication of wants/needs Time Speech Therapy Time In: 11:30 Speech Therapy Time Out: 12:00 Total Billed Time: 30 Billed Treatment Time 1, ANTONIA Ames March 01, 2020 13:36
--- NOTE | 2020-03-01 14:35 | Physical Therapy Daily Note ---
PT Daily Note-Current Subjective "Do you ever have patients who just cry all day? That's what I feel like today. The more you push me to do things, the more it hurts. I think we naturally will do things to keep moving, I don't think I need this. Go to the hospital and get some rest, they say. Not for me!" Mental Status Patient Orientation: Person, Place, Time, Situation Transfers SCALE: Activities may be completed with or without assistive devices. 2-Effoxicfbi-ukjnoiy completes the activity by him/herself with no assistance from a helper. 5-Set-up or Clean-up Assistance-helper sets up or cleans up; patient completes activity. [place] assists only prior to or following the activity. 4-Supervision or Touching Assistance-helper provides verbal cues and/or touching/steadying and/or contact guard assistance as patient completes activity. Assistance may be provided throughout the activity or intermittently. 3-Partial/Moderate Assistance-helper does LESS THAN HALF the effort. [place] lifts, holds or supports trunk or limbs, but provides less than half the effort. 2-Substantial/Maximal Assistance-helper does MORE THAN HALF the effort. [place] lifts or holds trunk or limbs and provides more than half the effort. 4-Mzxuuosyj-srjgon does ALL the effort. Patient does none of the effort to complete the activity. Or, the assistance of 2 or more helpers is required for the patient to complete the activity. If activity was not attempted, code reason: 7-Patient Refused. 9-Not Applicable-not attempted and the patient did not perform the activity before the current illness, exacerbation or injury. 10-Not Attempted due to Environmental Limitations-(lack of equipment, weather restraints, etc.). 88-Not Attempted due to Medical Conditions or Safety Concerns. Lying to Sitting/Side of Bed(Q: 3 Sit to Stand (QC): 5 Toilet Transfer (QC): 4 Weight Bearing Right Lower Extremity: Right Full Weight Bearing Left Lower Extremity: Left Full Weight Bearing Gait Training Does the Patient Walk?: Yes Distance: 150 Walk 10 feet (QC): 4 Walk 50 ft with 2 Turns(QC): 4 Walk 150 ft (QC): 4 Gait Persons Needed: 1 Gait Assistive Device: FWW Pt ambulates with reciprocal but antalgic gait. Tendency to take very long strides (B), heavy reliance on UE this PM. Wheelchair Training Does the Pt Use a Wheelchair?: No Exercises Supine Ex: Ankle pumps, Quad Set Supine Reps: 20 Seated Therapy Exercises: Long arc quads Seated Reps: 10 Treatments Gait training, LE exercises, toilet transfer. Up in chair with needs met. Assessment Current Status: Good Progress Pt tolerated well. Self limits at times. PT Jail Goals Branch Operations Coordinator Goals PT Branch Operations Coordinator Goals Time Frame: March 11, 2020 Roll Left & Right (QC): 6 Sit to Lying (QC): 6 Lying-Sitting on Side/Bed(QC): 6 Sit to Stand (QC): 6 Chair/Eda-oh-Kuydc Xfer(QC): 6 Toilet Transfer (QC): 6 Car Transfer (QC): 4 Does the Patient Walk: Yes Walk 10 feet (QC): 6 Walk 50ft with 2 Turns (QC): 6 Walk 150 ft (QC): 6 Walking 10ft on Uneven Surface: 4 1 Step (curb) (QC): 9 4 Steps (QC): 9 12 Steps (QC): 9 Picking up an Object (QC): 88 Wheel 50 feet with 2 turns (QC: 9 Wheel 150 feet: 9 PT Plan Problem List Problem List: Activity Tolerance, Functional Strength, Safety, Balance, Gait, Transfer, Bed Mobility, ROM Treatment/Plan Treatment Plan: Continue Plan of Care Treatment Plan: Bed Mobility, Concurrent Therapy, Education, Functional Activity Ramon, Functional Strength, Group Therapy, Gait, Safety, Therapeutic Exercise, Transfers Treatment Duration: March 11, 2020 Frequency: 6 times per week Estimated Hrs Per Day: 1.5 hours per day Patient and/or Family Agrees t: Yes Time/GCodes Time In: 1405 Time Out: 1435 Total Billed Treatment Time: 30 Total Billed Treatment 1, Ex x 20', GT x 10' MAGEN FREDERICK DPBasil March 01, 2020 14:35
--- NOTE | 2020-03-01 15:06 | NUR ---
CM/SS PATIENT CARE CONFERENCE SUMMARY Reviewed Summary with patient who is in agreement to continued stay and re-assessment next Conference 03/06/20. Patient asked if when she left ARU she would go to a next level of care rather than returning home. Explained our goal mirrored hers, that she would return home safely for continued recuperation. Patient is notably in better spirits and she describes an awareness of this as well. Mobility and pain management greatly improved. 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 She does want to be independent, but is appreciative that the offers are there. No blatant barriers to discharge indicated.
[2020-03-01 19:00] VITALS: BP 133/69
--- NOTE | 2020-03-01 19:10 | Cardiology Progress Note ---
Cardiology SOAP Progress Note Subjective: No cardiac complaints. Objective: I&O/Vital Signs 03/03/20 03/03/20 03/03/20 03/03/20 07:22 07:23 09:00 17:48 Temp 36.0 Pulse 67 Resp 18 B/P (MAP) 144/68 (93) Pulse Ox 91 91 96 O2 Delivery Room Air Room Air Room Air Room Air 03/03/20 00:00 Intake Total 820 ml Balance 820 ml Constitutional: AAO x 3; No apparent distress; PERRL, well-developed, well- nourished Respiratory: chest is bilaterally symmetric, lungs clear to auscultation; No crackles, No rhonchi, No rales Cardiovascular: regular rate-rhythm; No irregularly irregular, No extra beats, No parasternal heave is noted, No bradycardia, No tachycardia; S1 and S2; No gallop/S4, No diastolic murmur, No systolic murmur Gastrointestional: soft, audible bowel sounds Extremities: normal range of motion, normal inspection, tenderness Neurologic/Psychiatric: no motor/sensory deficits, alert, normal mood/affect, oriented x 3 Skin: normal color A/P: Assessment/Dx: Right hip fx Dyspnea Palpitations Tobaccoism Plan: Right hip fracture, s/p repair on 02/24/2020, continue with PT/OT Dyspnea, reports chronic dyspnea for past several years, slight increase in dyspnea over the past month, probable underlying COPD. 2D Echo done 02/26/2020 revealed grade I diastolic dysfunction, EF 55-60%, PA 25mmHg. Palpitations, occurring infrequently, continue to monitor. Tobaccoism, educated on the importance of smoking cessation. Parkinsons, management per PCP. UTI- continue on antibiotic, management per PCP Thank you for your consultation. Please call me if you have any questions. Rio Batres MD, FACP, FACC, FSCAI, FHRS, CCDS Interventional Cardiology Cardiac Electrophysiology Vascular Medicine and Endovascular Interventions [place] BATRES MD March 01, 2020 19:10
[2020-03-01] MEDS: GABAPENTIN 100 MG (NEURONTIN) CAP PO SCH (20:38)
[2020-03-01] MEDS: MONTELUKAST 10 MG (SINGULAIR) TAB PO SCH (20:38)
[2020-03-02 06:00] VITALS: BP 159/72
[2020-03-02] MEDS: predniSONE 20 MG TAB PO SCH (06:15)
[2020-03-02] MEDS: MULTIVIT W/MINERALS TAB (THERAGRAN M) PO SCH (06:16)
[2020-03-02] MEDS: HYDROcodone/APAP 7.5 MG/325 MG (LORTAB, LORCET PLUS) TABLET PO PRN ×3 (06:16→21:38)
[2020-03-02] MEDS: RT-ALBUTEROL/IPRATROPIUM 3 ML (DUONEB) VIAL INH SCH ×3 (06:59→19:34)
[2020-03-02] MEDS: ADVAIR HFA 115/21 MCG INHALER 8 GM IH SCH (07:00)
[2020-03-02] MEDS: LORATADINE (CLARITIN) 10 MG TAB PO SCH (08:32)
[2020-03-02] MEDS: CEPHALEXIN 250 MG (KEFLEX) CAP PO SCH (08:32)
[2020-03-02] MEDS: SINEMET 25/100 (CARBIDOPA/LEVODOPA) TAB PO SCH ×4 (08:32→21:31)
[2020-03-02] MEDS: ASPIRIN E.C. 81 MG (ECOTRIN) TAB PO SCH (08:32)
[2020-03-02] MEDS: ENOXAPARIN 40 MG/0.4 ML (LOVENOX) SYR SC SCH (08:33)
[2020-03-02] MEDS: LACTOBACILLUS ACIDOPHILUS (PROBIOTIC) CAPSULE PO SCH ×3 (08:38→17:35)
[2020-03-02] MEDS: SENNOSIDES 8.6 MG (SENOKOT) TAB PO SCH ×2 (08:38→21:31)
[2020-03-02] MEDS: polyethylene glycoL POWDER 17 GM (MIRALAX) PACK PO SCH ×2 (08:40→21:30)
[2020-03-02] MEDS: DOCUSATE SODIUM 100 MG (COLACE) CAP PO SCH ×2 (08:40→21:31)
[2020-03-02] MEDS: DICLOFENAC 1% GEL 100 GM (VOLTAREN) TUBE TOP SCH ×4 (08:41→21:31)
[2020-03-02] MEDS: SENNA W/DOCUSATE (SENOKOT S) TABLET PO SCH ×2 (08:41→21:35)
--- NOTE | 2020-03-02 11:45 | Physical Therapy Daily Note ---
PT Daily Note-Current Subjective Agrees to PT. Transfers SCALE: Activities may be completed with or without assistive devices. 4-Ploipxljen-uexshwf completes the activity by him/herself with no assistance from a helper. 5-Set-up or Clean-up Assistance-helper sets up or cleans up; patient completes activity. [place] assists only prior to or following the activity. 4-Supervision or Touching Assistance-helper provides verbal cues and/or to uching/steadying and/or contact guard assistance as patient completes activity. Assistance may be provided throughout the activity or intermittently. 3-Partial/Moderate Assistance-helper does LESS THAN HALF the effort. [place] lifts, holds or supports trunk or limbs, but provides less than half the effort. 2-Substantial/Maximal Assistance-helper does MORE THAN HALF the effort. [place] lifts or holds trunk or limbs and provides more than half the effort. 6-Vrsjrxajw-hweblg does ALL the effort. Patient does none of the effort to complete the activity. Or, the assistance of 2 or more helpers is required for the patient to complete the activity. If activity was not attempted, code reason: 7-Patient Refused. 9-Not Applicable-not attempted and the patient did not perform the activity before the current illness, exacerbation or injury. 10-Not Attempted due to Environmental Limitations-(lack of equipment, weather restraints, etc.). 88-Not Attempted due to Medical Conditions or Safety Concerns. Sit to Stand (QC): 4 (SBA for all transfers; correct use of hand placement. ) Toilet Transfer (QC): 4 Weight Bearing Right Lower Extremity: Right Full Weight Bearing Left Lower Extremity: Left Full Weight Bearing Gait Training Distance: 250 ft; 50 ft; 200 ft Gait Assistive Device: FWW slightly antalgic gait but safe. Treatments Functional gait training; toileted with sBA; assist with clothing management. SBA as she stood at sink to wash her hands. Assessment Current Status: Good Progress Pt progressing well. Pleasant and cooperative. PT Usp Goals Usp Goals PT Grinder Hand Goals Time Frame: March 11, 2020 Roll Left & Right (QC): 6 Sit to Lying (QC): 6 Lying-Sitting on Side/Bed(QC): 6 Sit to Stand (QC): 6 Chair/Zyj-oc-Wyqdy Xfer(QC): 6 Toilet Transfer (QC): 6 Car Transfer (QC): 4 Does the Patient Walk: Yes Walk 10 feet (QC): 6 Walk 50ft with 2 Turns (QC): 6 Walk 150 ft (QC): 6 Walking 10ft on Uneven Surface: 4 1 Step (curb) (QC): 9 4 Steps (QC): 9 12 Steps (QC): 9 Picking up an Object (QC): 88 Wheel 50 feet with 2 turns (QC: 9 Wheel 150 feet: 9 PT Plan Problem List Problem List: Activity Tolerance, Functional Strength, Safety, Balance, Gait, Transfer Treatment/Plan Treatment Plan: Continue Plan of Care Treatment Plan: Bed Mobility, Concurrent Therapy, Education, Functional Ac tivity Ramon, Functional Strength, Group Therapy, Gait, Safety, Therapeutic Exercise, Transfers Treatment Duration: March 11, 2020 Frequency: 6 times per week Estimated Hrs Per Day: 1.5 hours per day Patient and/or Family Agrees t: Yes Safety Risks/Education Patient Education: Safety Issues Teaching Recipient: Patient Teaching Methods: Discussion Response to Teaching: Verbalize Understanding Discharge Recommendations Therapy Discharge Recommendati: Post Acute PT (HHC PT) Time/GCodes Time In: 1120 Time Out: 1143 Total Billed Treatment Time: 23 Total Billed Treatment visit GT 23 SUNNY GABRIEL PT March 02, 2020 11:45
--- NOTE | 2020-03-02 12:25 | PM&R Progress Note ---
Subjective HPI/CC On Admission Date Seen by Provider: March 02, 2020 Time Seen by Provider: 12:30 Subjective/Events-last exam Bowel movements are only about every 3-4 days so will give Fleets today at her request Much improved right leg and thigh and back pain since steroid injection and Prednisone maintained low dose and fast taper COPD exacerbation is greatly improved since steroids given and she is breathing better and lungs are clear No falls Smoking cessation discussed a lot Overall much improved from lung and hip standpoint Wants to go home Wednesday since her daughter will be here visiting Conferred with RN Reviewed therapy notes Checked meds and labs Review of Systems General: Fatigue Musculoskeletal: leg pain Neurological: Weakness Objective Exam Vital Signs Vital Signs Date Time Temp Pulse Resp B/P (MAP) Pulse Ox O2 Delivery O2 Flow Rate FiO2 03/02/20 14:41 95 Room Air 03/02/20 06:00 36.5 72 16 159/72 (101) Capillary Refill : Less Than 3 SecondsLess Than 3 Seconds General Appearance: No Apparent Distress, WD/WN, Chronically ill, Obese HEENT: PERRL/EOMI, Normal ENT Inspection, Pharynx Normal Neck: Full Range of Motion, Normal Inspection, Non Tender, Supple, Carotid Bruit Respiratory: Chest Non Tender, Lungs Clear, Normal Breath Sounds, No Accessory Muscle Use, No Respiratory Distress Cardiovascular: Regular Rate, Rhythm, No Edema, No Gallop, No JVD, No Murmur, Normal Peripheral Pulses Gastrointestinal: Normal Bowel Sounds, No Organomegaly, No Pulsatile Mass, Non Tender, Soft Back: Normal Inspection, No CVA Tenderness, No Vertebral Tenderness Extremity: Normal Capillary Refill, Normal Inspection, Normal Range of Motion (except right leg from hip fracture site), Non Tender, No Calf Tenderness, No Pedal Edema Neurologic/Psychiatric: Alert, Oriented x3, No Motor/Sensory Deficits, Normal Mood/Affect Skin: Normal Color, Warm/Dry Lymphatic: No Adenopathy Results/Procedures Lab Patient resulted labs reviewed. FIM Transfers Therapy Code Descriptions/Definitions Functional [place] Measure: 0=Not Assessed/NA 4=Minimal Assistance 1=Total Assistance 5=Supervision or Setup 2=Maximal Assistance 6=Modified [place] 3=Moderate Assistance 7=Complete IndependenceSCALE: Activities may be completed with or without assistive devices. 1-Zkbmgavwsv-ihqhehp completes the activity by him/herself with no assistance from a helper. 5-Set-up or Clean-up Assistance-helper sets up or cleans up; patient completes activity. [place] assists only prior to or following the activity. 4-Supervision or Touching Assistance-helper provides verbal cues and/or touching/steadying and/or contact guard assistance as patient completes activity. Assistance may be provided throughout the activity or intermittently. 3-Partial/Moderate Assistance-helper does LESS THAN HALF the effort. [place] lifts, holds or supports trunk or limbs, but provides less than half the effort. 2-Substantial/Maximal Assistance-helper does MORE THAN HALF the effort. [place] lifts or holds trunk or limbs and provides more than half the effort. 0-Wplhijhjl-revsrn does ALL the effort. Patient does none of the effort to complete the activity. Or, the assistance of 2 or more helpers is required for the patient to complete the activity. If activity was not attempted, code reason: 7-Patient Refused. 9-Not Applicable-not attempted and the patient did not perform the activity before the current illness, exacerbation or injury. 10-Not Attempted due to Environmental Limitations-(lack of equipment, weather restraints, etc.). 88-Not Attempted due to Medical Conditions or Safety Concerns. Roll Left to Right (QC): 2 Sit to Lying (QC): 5 Sit to Stand (QC): 4 (SBA for all transfers; correct use of hand placement. ) Chair/Hat-lq-Aatsz Xfer(QC): 3 Car Transfer (QC): 88 Gait Training Does the Patient Walk?: Yes Distance: 250 ft; 50 ft; 200 ft Walk 10 feet (QC): 4 Walk 50 ft with 2 Turns(QC): 4 Walk 150 ft (QC): 4 Walking 10ft/uneven surface-QC: 88 Gait Persons Needed: 1 Gait Assistive Device: FWW Wheelchair Training Does the Pt Use a Wheelchair?: No Distance: 100 ft Wheel 50 ft with 2 turns (QC): 3 Wheel 150 ft (QC): 88 Type of Wheelchair: Manual Stair Training 1 Step (curb) (QC): 9 4 Steps (QC): 9 12 Steps (QC): 9 Balance Picking up an Object (QC): 88 ADL-Treatment Eating (QC): 6 Oral Hygiene (QC): 6 Bathing Location: L Arm, R Arm, L Upper Leg, R Upper Leg, L Lower Leg (including foot), R Lower Leg (including foot), Chest, Abdomen, Buttocks, Perineal Area Shower/Bathe Self (QC): 4 (SUP in stance. SBA during LB washing due to precaution managmenet. ) Upper Body Dressing (QC): 6 Lower Body Dressing (QC): 4 (cues for importance of precautions. ) On/Off Footwear (QC): 3 (min A- pt frustrated with task, requires assist. ) Toileting Hygiene (QC): 6 Toilet Transfer (QC): 4 (SUP) Assessment/Plan Assessment and Plan Assess & Plan/Chief Complaint Assessment: s/p right hip fracture with uncomplicated repair by Dr Irizarry UTI PD Smoker Falls Wheezing now resolved and confirms dx of COPD s/p steroid management Constipation Plan: Lovenox Fall risk IRF protocol Home meds Cardiology evaluation Nebs O2 ICS Steroids Fleets (1) Pathological fracture of right femur due to osteoporosis (2) Fracture of hip, right, closed Status: Acute (3) UTI (urinary tract infection) (4) Parkinson disease (5) Smoker (6) Wheezing (7) Congestion of upper respiratory tract (8) Constipation (9) Fall Status: Acute SHAYAN IL DO March 02, 2020 12:25
--- NOTE | 2020-03-02 16:01 | NUR ---
FLEETS ENEMA GIVEN WITH GOOD RESULTS.
[2020-03-02 17:51] VITALS: BP 118/64
--- NOTE | 2020-03-02 21:05 | Cardiology Progress Note ---
Cardiology SOAP Progress Note Subjective: No cardiac complaints. Objective: I&O/Vital Signs 03/03/20 03/03/20 03/03/20 03/03/20 07:22 07:23 09:00 17:48 Temp 36.0 Pulse 67 Resp 18 B/P (MAP) 144/68 (93) Pulse Ox 91 91 96 O2 Delivery Room Air Room Air Room Air Room Air 03/03/20 00:00 Intake Total 820 ml Balance 820 ml Constitutional: AAO x 3, PERRL, well-developed, well-nourished Respiratory: chest is bilaterally symmetric, lungs clear to auscultation; No crackles, No rhonchi, No rales Cardiovascular: regular rate-rhythm; No irregularly irregular, No extra beats, No parasternal heave is noted; S1 and S2; No gallop/S4, No diastolic murmur, No systolic murmur Gastrointestional: soft, audible bowel sounds Extremities: normal range of motion, non-tender, normal inspection, no lower extremity edema bilateral Neurologic/Psychiatric: no motor/sensory deficits, alert, normal mood/affect, oriented x 3 Skin: normal color A/P: Assessment/Dx: Right hip fracture, for inpatient rehabilitation, Shortness of breath, mild diastolic dysfunction, UTI, Smoking Plan: Right hip fracture, s/p repair on 02/24/2020, continue with PT/OT Dyspnea, reports chronic dyspnea for past several years, slight increase in dyspnea over the past month, probable underlying COPD. 2D Echo done 02/26/2020 revealed grade I diastolic dysfunction, EF 55-60%, PA 25mmHg. Palpitations, occurring infrequently, continue to monitor. Tobaccoism, educated on the importance of smoking cessation. Parkinsons, management per PCP. UTI- continue on antibiotic, management per PCP Thank you for your consultation. Please call me if you have any questions. Rio Batres MD, FACP, FACC, FSCAI, FHRS, CCDS Interventional Cardiology Cardiac Electrophysiology Vascular Medicine and Endovascular Interventions [place] BATRES MD March 02, 2020 21:05
[2020-03-02] MEDS: GABAPENTIN 100 MG (NEURONTIN) CAP PO SCH (21:30)
[2020-03-02] MEDS: MONTELUKAST 10 MG (SINGULAIR) TAB PO SCH (21:31)
[2020-03-03 06:00] VITALS: BP 134/65
[2020-03-03] MEDS: MULTIVIT W/MINERALS TAB (THERAGRAN M) PO SCH (06:57)
[2020-03-03] MEDS: predniSONE 20 MG TAB PO SCH (06:57)
[2020-03-03] MEDS: ADVAIR HFA 115/21 MCG INHALER 8 GM IH SCH ×2 (07:21→18:53)
[2020-03-03] MEDS: RT-ALBUTEROL/IPRATROPIUM 3 ML (DUONEB) VIAL INH SCH ×3 (07:22→18:53)
[2020-03-03] MEDS: ASPIRIN E.C. 81 MG (ECOTRIN) TAB PO SCH (09:00)
[2020-03-03] MEDS: SINEMET 25/100 (CARBIDOPA/LEVODOPA) TAB PO SCH ×4 (09:00→20:50)
[2020-03-03] MEDS: LORATADINE (CLARITIN) 10 MG TAB PO SCH (09:00)
[2020-03-03] MEDS: ENOXAPARIN 40 MG/0.4 ML (LOVENOX) SYR SC SCH (09:02)
[2020-03-03] MEDS: DOCUSATE SODIUM 100 MG (COLACE) CAP PO SCH ×2 (09:02→20:50)
[2020-03-03] MEDS: SENNOSIDES 8.6 MG (SENOKOT) TAB PO SCH ×2 (09:03→20:51)
[2020-03-03] MEDS: polyethylene glycoL POWDER 17 GM (MIRALAX) PACK PO SCH ×2 (09:03→20:50)
[2020-03-03] MEDS: SENNA W/DOCUSATE (SENOKOT S) TABLET PO SCH ×2 (09:03→20:51)
[2020-03-03] MEDS: DICLOFENAC 1% GEL 100 GM (VOLTAREN) TUBE TOP SCH ×4 (09:03→20:51)
[2020-03-03] MEDS: LACTOBACILLUS ACIDOPHILUS (PROBIOTIC) CAPSULE PO SCH ×3 (09:05→18:18)
--- NOTE | 2020-03-03 10:00 | NUR ---
HAD REFUSED AM LAXATIVES EVEN THOUGH HAS HISTORY OF CONSTIPATION BECAUSE "I WANT TO DO IT MY NORMAL WAY". PATIENT WAS HAPPY BECAUSE SHE DID JUST EXPEL A LARGE BM. IS VERY ANXIOUS TO GO HOME. STATES DAUGHTER IS COMING IN FROM [place] THIS WEEK AND WILL BE SPENDING A COUPLE OF WEEKS HERE.
--- NOTE | 2020-03-03 12:09 | PM&R Progress Note ---
Subjective HPI/CC On Admission Date Seen by Provider: March 03, 2020 Time Seen by Provider: 12:15 Subjective/Events-last exam Large BM yesterday after Fleets. Much improved right leg and thigh and back pain since steroid injection and Prednisone maintained low dose and fast taper COPD exacerbation is greatly improved since steroids given and she is breathing better and lungs are clear. Will need to maintain on ICS and Singulair No falls Smoking cessation discussed a lot Overall much improved from lung and hip standpoint Wants to go home Wednesday since her daughter will be here visiting Conferred with RN Reviewed therapy notes Checked meds and labs Review of Systems General: Fatigue Pulmonary: Dyspnea, Cough Musculoskeletal: leg pain Objective Exam Vital Signs Vital Signs Date Time Temp Pulse Resp B/P (MAP) Pulse Ox O2 Delivery O2 Flow Rate FiO2 03/03/20 18:53 94 Room Air 03/03/20 17:48 36.0 67 18 144/68 (93) Capillary Refill : Less Than 3 SecondsLess Than 3 Seconds General Appearance: No Apparent Distress, WD/WN, Chronically ill, Obese HEENT: PERRL/EOMI, Normal ENT Inspection, Pharynx Normal Neck: Full Range of Motion, Normal Inspection, Non Tender, Supple, Carotid Bruit Respiratory: Chest Non Tender, Lungs Clear, Normal Breath Sounds, No Accessory Muscle Use, No Respiratory Distress Cardiovascular: Regular Rate, Rhythm, No Edema, No Gallop, No JVD, No Murmur, Normal Peripheral Pulses Gastrointestinal: Normal Bowel Sounds, No Organomegaly, No Pulsatile Mass, Non Tender, Soft Back: Normal Inspection, No CVA Tenderness, No Vertebral Tenderness Extremity: Normal Capillary Refill, Normal Inspection, Normal Range of Motion (except right leg from hip fracture site), Non Tender, No Calf Tenderness, No Pedal Edema Neurologic/Psychiatric: Alert, Oriented x3, No Motor/Sensory Deficits, Normal Mood/Affect Skin: Normal Color, Warm/Dry Lymphatic: No Adenopathy Results/Procedures Lab Patient resulted labs reviewed. FIM Transfers Therapy Code Descriptions/Definitions Functional [place] Measure: 0=Not Assessed/NA 4=Minimal Assistance 1=Total Assistance 5=Supervision or Setup 2=Maximal Assistance 6=Modified [place] 3=Moderate Assistance 7=Complete IndependenceSCALE: Activities may be completed with or without assistive devices. 5-Ooenwlssxp-xolxsys completes the activity by him/herself with no assistance from a helper. 5-Set-up or Clean-up Assistance-helper sets up or cleans up; patient completes activity. [place] assists only prior to or following the activity. 4-Supervision or Touching Assistance-helper provides verbal cues and/or touching/steadying and/or contact guard assistance as patient completes activity. Assistance may be provided throughout the activity or intermittently. 3-Partial/Moderate Assistance-helper does LESS THAN HALF the effort. [place] lifts, holds or supports trunk or limbs, but provides less than half the effort. 2-Substantial/Maximal Assistance-helper does MORE THAN HALF the effort. [place] lifts or holds trunk or limbs and provides more than half the effort. 9-Dietutnjf-silosy does ALL the effort. Patient does none of the effort to complete the activity. Or, the assistance of 2 or more helpers is required for the patient to complete the activity. If activity was not attempted, code reason: 7-Patient Refused. 9-Not Applicable-not attempted and the patient did not perform the activity before the current illness, exacerbation or injury. 10-Not Attempted due to Environmental Limitations-(lack of equipment, weather restraints, etc.). 88-Not Attempted due to Medical Conditions or Safety Concerns. Roll Left to Right (QC): 2 Sit to Lying (QC): 5 Sit to Stand (QC): 4 (SBA for all transfers; correct use of hand placement. ) Chair/Toq-mp-Vnpcw Xfer(QC): 3 Car Transfer (QC): 88 Gait Training Does the Patient Walk?: Yes Distance: 250 ft; 50 ft; 200 ft Walk 10 feet (QC): 4 Walk 50 ft with 2 Turns(QC): 4 Walk 150 ft (QC): 4 Walking 10ft/uneven surface-QC: 88 Gait Persons Needed: 1 Gait Assistive Device: FWW Wheelchair Training Does the Pt Use a Wheelchair?: No Distance: 100 ft Wheel 50 ft with 2 turns (QC): 3 Wheel 150 ft (QC): 88 Type of Wheelchair: Manual Stair Training 1 Step (curb) (QC): 9 4 Steps (QC): 9 12 Steps (QC): 9 Balance Picking up an Object (QC): 88 ADL-Treatment Eating (QC): 6 Oral Hygiene (QC): 6 Bathing Location: L Arm, R Arm, L Upper Leg, R Upper Leg, L Lower Leg ( including foot), R Lower Leg (including foot), Chest, Abdomen, Buttocks, Perineal Area Shower/Bathe Self (QC): 4 (SUP in stance. SBA during LB washing due to precaution managmenet. ) Upper Body Dressing (QC): 6 Lower Body Dressing (QC): 4 (cues for importance of precautions. ) On/Off Footwear (QC): 3 (min A- pt frustrated with task, requires assist. ) Toileting Hygiene (QC): 6 Toilet Transfer (QC): 4 (SUP) Assessment/Plan Assessment and Plan Assess & Plan/Chief Complaint Assessment: s/p right hip fracture with uncomplicated repair by Dr Irizarry UTI PD Smoker Falls Wheezing now resolved and confirms dx of COPD s/p steroid management Constipation Plan: Lovenox Fall risk IRF protocol Home meds Cardiology evaluation Nebs O2 ICS Steroids Fleets prn (1) Pathological fracture of right femur due to osteoporosis (2) Fracture of hip, right, closed Status: Acute (3) UTI (urinary tract infection) (4) Parkinson disease (5) Smoker (6) Wheezing (7) Congestion of upper respiratory tract (8) Constipation (9) Fall Status: Acute SHAYAN LI DO March 03, 2020 12:09
[2020-03-03] MEDS: HYDROcodone/APAP 7.5 MG/325 MG (LORTAB, LORCET PLUS) TABLET PO PRN ×2 (12:20→19:43)
--- NOTE | 2020-03-03 13:00 | NUR ---
DR. TELLES HERE TO SEE PATIENT.
--- NOTE | 2020-03-03 13:48 | Progress Note ---
Standard Progress Note Progress Notes/Assess & Plan Date Seen by a Provider: March 03, 2020 Time Seen by a Provider: 13:47 Progress/Assessment & Plan no complaints Vital Signs Date Time Temp Pulse Resp B/P (MAP) Pulse Ox O2 Delivery O2 Flow Rate FiO2 02/27/20 05:43 37.0 74 18 135/76 (95) 93 Room Air 02/26/20 21:00 Room Air 02/26/20 17:39 37.6 80 18 136/67 (90) 90 Room Air 02/26/20 12:55 Room Air 02/26/20 12:32 37.7 80 16 112/51 91 Room Air I & O 02/27/20 07:00 Intake Total 350 ml Balance 350 ml Laboratory Tests Test 02/27/20 04:56 Range/Units White Blood Count 10.2 4.3-11.0 10^3/uL Red Blood Count 3.72 L 4.35-5.85 10^6/uL Hemoglobin 10.2 L 11.5-16.0 G/DL Hematocrit 32 L 35-52 % Mean Corpuscular Volume 86 80-99 FL Mean Corpuscular Hemoglobin 27 25-34 PG Mean Corpuscular Hemoglobin Concent 32 32-36 G/DL Red Cell Distribution Width 13.5 10.0-14.5 % Platelet Count 216 130-400 10^3/uL Mean Platelet Volume 10.4 7.4-10.4 FL Neutrophils (%) (Auto) 51 42-75 % Lymphocytes (%) (Auto) 33 12-44 % Monocytes (%) (Auto) 12 0-12 % Eosinophils (%) (Auto) 4 0-10 % Basophils (%) (Auto) 0 0-10 % Neutrophils # (Auto) 5.2 1.8-7.8 X 10^3 Lymphocytes # (Auto) 3.4 1.0-4.0 X 10^3 Monocytes # (Auto) 1.2 H 0.0-1.0 X 10^3 Eosinophils # (Auto) 0.4 H 0.0-0.3 10^3/uL Basophils # (Auto) 0.0 0.0-0.1 10^3/uL Sodium Level 139 135-145 MMOL/L Potassium Level 3.8 3.6-5.0 MMOL/L Chloride Level 104 98-107 MMOL/L Carbon Dioxide Level 24 21-32 MMOL/L Anion Gap 11 5-14 MMOL/L Blood Urea Nitrogen 10 7-18 MG/DL Creatinine 0.63 0.60-1.30 MG/DL Estimat Glomerular Filtration Rate > 60 BUN/Creatinine Ratio 16 Glucose Level 121 H 70-105 MG/DL Calcium Level 8.8 8.5-10.1 MG/DL Corrected Calcium 9.2 8.5-10.1 MG/DL Total Bilirubin 0.8 0.1-1.0 MG/DL Aspartate Amino Transf (AST/SGOT) 59 H 5-34 U/L Alanine Aminotransferase (ALT/SGPT) 63 H 0-55 U/L Alkaline Phosphatase 110 40-136 U/L Total Protein 6.1 L 6.4-8.2 GM/DL Albumin 3.5 3.2-4.5 GM/DL able to perform SLR. No calf tenderness s/p R hip bipolar continue PT/OT Final Diagnosis feeling better Vital Signs Date Time Temp Pulse Resp B/P (MAP) Pulse Ox O2 Delivery O2 Flow Rate FiO2 03/03/20 09:00 Room Air 03/03/20 07:23 91 Room Air 03/03/20 07:22 91 Room Air 03/03/20 06:00 36.6 70 20 134/65 (88) 94 Room Air 03/02/20 21:00 Room Air 03/02/20 19:34 94 Room Air 03/02/20 17:51 36.7 79 16 118/64 (82) 96 Room Air 03/02/20 14:41 95 Room Air I & O 03/03/20 07:00 Intake Total 1170 ml Balance 1170 ml RLE--no calf tenderness. no pain with SLR. able to actively flex hip s/p R hip bipolar continue PT/OT PERI TELLES MD March 03, 2020 13:48
[2020-03-03 17:48] VITALS: BP 144/68
[2020-03-03] MEDS: GABAPENTIN 100 MG (NEURONTIN) CAP PO SCH (20:50)
[2020-03-03] MEDS: MONTELUKAST 10 MG (SINGULAIR) TAB PO SCH (20:51)
[2020-03-04 05:29] LABS: BASOPHILS % (AUTO) 0 % (0-10); EOSINOPHILS # (AUTO) 0.3 10^3/uL (0.0-0.3); EOSINOPHILS % (AUTO) 3 % (0-10); HEMATOCRIT 32 % (35-52); HEMOGLOBIN 10.2 G/DL (11.5-16.0); LYMPHOCYTES # (AUTO) 5.5 X 10^3 (1.0-4.0); LYMPHOCYTES % (AUTO) 45 % (12-44); MEAN CORPUSCULAR HEMOGLOBIN 28 PG (25-34); MEAN CORPUSCULAR HGB CONC 32 G/DL (32-36); MEAN CORPUSCULAR VOLUME 89 FL (80-99); MEAN PLATELET VOLUME 9.8 FL (7.4-10.4); MONOCYTES % (AUTO) 8 % (0-12); NEUTROPHILS # (AUTO) 5.5 X 10^3 (1.8-7.8); NEUTROPHILS % (AUTO) 45 % (42-75); PLATELET COUNT 408 10^3/uL (130-400); RED CELL DISTRIBUTION WIDTH 14.1 % (10.0-14.5); WHITE BLOOD COUNT 12.4 10^3/uL (4.3-11.0)
[2020-03-04 05:49] LABS: ALANINE AMINOTRANSFERASE 14 U/L (0-55); ALBUMIN 3.6 GM/DL (3.2-4.5); ALKALINE PHOSPHATASE 110 U/L (40-136); BILIRUBIN,TOTAL 0.4 MG/DL (0.1-1.0); BUN/CREATININE RATIO 19; CALCIUM 8.9 MG/DL (8.5-10.1); CARBON DIOXIDE 25 MMOL/L (21-32); CHLORIDE 105 MMOL/L (98-107); CREATININE SERUM 0.74 MG/DL (0.60-1.30); GFR ESTIMATED > 60; GLUCOSE 98 MG/DL (70-105); POTASSIUM 4.6 MMOL/L (3.6-5.0); SODIUM 141 MMOL/L (135-145); TOTAL PROTEIN 6.2 GM/DL (6.4-8.2)
[2020-03-04] MEDS: predniSONE 20 MG TAB PO SCH (06:04)
[2020-03-04] MEDS: MULTIVIT W/MINERALS TAB (THERAGRAN M) PO SCH (06:04)
[2020-03-04] MEDS: ADVAIR HFA 115/21 MCG INHALER 8 GM IH SCH ×2 (06:17→18:34)
[2020-03-04] MEDS: RT-ALBUTEROL/IPRATROPIUM 3 ML (DUONEB) VIAL INH SCH ×3 (06:17→18:33)
[2020-03-04 06:55] VITALS: BP 138/54
[2020-03-04] MEDS: LACTOBACILLUS ACIDOPHILUS (PROBIOTIC) CAPSULE PO SCH ×3 (08:44→16:22)
[2020-03-04] MEDS: ENOXAPARIN 40 MG/0.4 ML (LOVENOX) SYR SC SCH (08:44)
[2020-03-04] MEDS: SENNA W/DOCUSATE (SENOKOT S) TABLET PO SCH ×2 (08:45→20:33)
[2020-03-04] MEDS: SINEMET 25/100 (CARBIDOPA/LEVODOPA) TAB PO SCH ×4 (08:45→20:32)
[2020-03-04] MEDS: DICLOFENAC 1% GEL 100 GM (VOLTAREN) TUBE TOP SCH ×4 (08:45→20:34)
[2020-03-04] MEDS: DOCUSATE SODIUM 100 MG (COLACE) CAP PO SCH ×2 (08:45→20:33)
[2020-03-04] MEDS: polyethylene glycoL POWDER 17 GM (MIRALAX) PACK PO SCH ×2 (08:45→20:33)
[2020-03-04] MEDS: SENNOSIDES 8.6 MG (SENOKOT) TAB PO SCH ×2 (08:45→20:33)
[2020-03-04] MEDS: ASPIRIN E.C. 81 MG (ECOTRIN) TAB PO SCH (08:46)
[2020-03-04] MEDS: LORATADINE (CLARITIN) 10 MG TAB PO SCH (08:46)
--- NOTE | 2020-03-04 09:09 | Physical Therapy Daily Note ---
PT Daily Note-Current Subjective Pain rated 2/10 upon arrival and 4-5/10 with activity. Pt agrees to PT. Pt requests BR. Pt c/o during therapy "I don't know why you make us go so hard bc then we the rest of the day." Mental Status Patient Orientation: Person, Place, Situation Transfers SCALE: Activities may be completed with or without assistive devices. 8-Gosxteqawv-affaepl completes the activity by him/herself with no assistance from a helper. 5-Set-up or Clean-up Assistance-helper sets up or cleans up; patient completes activity. [place] assists only prior to or following the activity. 4-Supervision or Touching Assistance-helper provides verbal cues and/or touching/steadying and/or contact guard assistance as patient completes activity. Assistance may be provided throughout the activity or intermittently. 3-Partial/Moderate Assistance-helper does LESS THAN HALF the effort. [place] lifts, holds or supports trunk or limbs, but provides less than half the effort. 2-Substantial/Maximal Assistance-helper does MORE THAN HALF the effort. [place] lifts or holds trunk or limbs and provides more than half the effort. 5-Xzfypancw-ohiowi does ALL the effort. Patient does none of the effort to complete the activity. Or, the assistance of 2 or more helpers is required for the patient to complete the activity. If activity was not attempted, code reason: 7-Patient Refused. 9-Not Applicable-not attempted and the patient did not perform the activity before the current illness, exacerbation or injury. 10-Not Attempted due to Environmental Limitations-(lack of equipment, weather restraints, etc.). 88-Not Attempted due to Medical Conditions or Safety Concerns. Weight Bearing Right Lower Extremity: Right Full Weight Bearing Left Lower Extremity: Left Full Weight Bearing Exercises Seated Therapy Exercises: Ankle pumps, Long arc quads Seated Reps: 20 Standing: Heel/toe raises, 3 way Ex=Flex, Abd, Ext, Mini squats Standing Reps: 20 NuStep Minutes: 14 NuStep Workload: 3 Treatments Pt seen for gait training, BR use, Nu-step and LE strengthening in standing at //bars Assessment Current Status: Good Progress Pt estela well with rest breaks as needed. Pt transfers are mod (I). Gait slow and steady. Pt back to room with call light and all needs met. PT Care Home Goals Care Home Goals PT Care Home Goals Time Frame: March 11, 2020 Roll Left & Right (QC): 6 Sit to Lying (QC): 6 Lying-Sitting on Side/Bed(QC): 6 Sit to Stand (QC): 6 Chair/Ubg-bf-Nrvoy Xfer(QC): 6 Toilet Transfer (QC): 6 Car Transfer (QC): 4 Does the Patient Walk: Yes Walk 10 feet (QC): 6 Walk 50ft with 2 Turns (QC): 6 Walk 150 ft (QC): 6 Walking 10ft on Uneven Surface: 4 1 Step (curb) (QC): 9 4 Steps (QC): 9 12 Steps (QC): 9 Picking up an Object (QC): 88 Wheel 50 feet with 2 turns (QC: 9 Wheel 150 feet: 9 PT Plan Treatment/Plan Treatment Plan: Continue Plan of Care Treatment Plan: Bed Mobility, Concurrent Therapy, Education, Functional Activity Ramon, Functional Strength, Group Therapy, Gait, Safety, Therapeutic Exercise, Transfers Treatment Duration: March 11, 2020 Frequency: 6 times per week Estimated Hrs Per Day: 1.5 hours per day Patient and/or Family Agrees t: Yes Time/GCodes Time In: 815 Time Out: 915 Total Billed Treatment Time: 60 Total Billed Treatment 1, Ex x 30', FA x 15', Gait x 15' TEODORO AMAYA CPTA March 04, 2020 09:09
--- NOTE | 2020-03-04 09:15 | PM&R Progress Note ---
Subjective HPI/CC On Admission Date Seen by Provider: March 04, 2020 Time Seen by Provider: 09:15 Subjective/Events-last exam Pt having dressing changes and the incision looks good Some minimal pain, minimal pain medication given Bowels move after fleets enema on Wednesday and yesterday with out fleets enema WBC of 12.4 and hgb 10 DC planned soon since her daughter is coming to visit from [place] Conferred with RN Reviewed therapy notes Checked meds and labs Review of Systems General: Fatigue Objective Exam Vital Signs Vital Signs Date Time Temp Pulse Resp B/P (MAP) Pulse Ox O2 Delivery O2 Flow Rate FiO2 03/04/20 16:00 36.6 68 18 134/66 (88) 95 Room Air Capillary Refill : Less Than 3 SecondsLess Than 3 Seconds General Appearance: No Apparent Distress, WD/WN, Chronically ill, Obese HEENT: PERRL/EOMI, Normal ENT Inspection, Pharynx Normal Neck: Full Range of Motion, Normal Inspection, Non Tender, Supple, Carotid Bruit Respiratory: Chest Non Tender, Lungs Clear, Normal Breath Sounds, No Accessory Muscle Use, No Respiratory Distress Cardiovascular: Regular Rate, Rhythm, No Edema, No Gallop, No JVD, No Murmur, Normal Peripheral Pulses Gastrointestinal: Normal Bowel Sounds, No Organomegaly, No Pulsatile Mass, Non Tender, Soft Back: Normal Inspection, No CVA Tenderness, No Vertebral Tenderness Extremity: Normal Capillary Refill, Normal Inspection, Normal Range of Motion (except right leg from hip fracture site), Non Tender, No Calf Tenderness, No Pedal Edema Neurologic/Psychiatric: Alert, Oriented x3, No Motor/Sensory Deficits, Normal Mood/Affect Skin: Normal Color, Warm/Dry Lymphatic: No Adenopathy Results/Procedures Lab Laboratory Tests 03/04/20 05:05 Patient resulted labs reviewed. FIM Transfers Therapy Code Descriptions/Definitions Functional [place] Measure: 0=Not Assessed/NA 4=Minimal Assistance 1=Total Assistance 5=Supervision or Setup 2=Maximal Assistance 6=Modified [place] 3=Moderate Assistance 7=Complete IndependenceSCALE: Activities may be completed with or without assistive devices. 6-Vbetvyyeyb-ndtfzwj completes the activity by him/herself with no assistance fr om a helper. 5-Set-up or Clean-up Assistance-helper sets up or cleans up; patient completes activity. [place] assists only prior to or following the activity. 4-Supervision or Touching Assistance-helper provides verbal cues and/or touching/steadying and/or contact guard assistance as patient completes activity. Assistance may be provided throughout the activity or intermittently. 3-Partial/Moderate Assistance-helper does LESS THAN HALF the effort. [place] lifts, holds or supports trunk or limbs, but provides less than half the effort. 2-Substantial/Maximal Assistance-helper does MORE THAN HALF the effort. [place] lifts or holds trunk or limbs and provides more than half the effort. 2-Oypultpdg-czspwi does ALL the effort. Patient does none of the effort to complete the activity. Or, the assistance of 2 or more helpers is required for the patient to complete the activity. If activity was not attempted, code reason: 7-Patient Refused. 9-Not Applicable-not attempted and the patient did not perform the activity before the current illness, exacerbation or injury. 10-Not Attempted due to Environmental Limitations-(lack of equipment, weather restraints, etc.). 88-Not Attempted due to Medical Conditions or Safety Concerns. Roll Left to Right (QC): 2 Sit to Lying (QC): 5 Sit to Stand (QC): 4 (SBA for all transfers; correct use of hand placement. ) Chair/Qqi-nu-Fxxix Xfer(QC): 3 Car Transfer (QC): 88 Gait Training Does the Patient Walk?: Yes Distance: 250 ft; 50 ft; 200 ft Walk 10 feet (QC): 4 Walk 50 ft with 2 Turns(QC): 4 Walk 150 ft (QC): 4 Walking 10ft/uneven surface-QC: 88 Gait Persons Needed: 1 Gait Assistive Device: FWW Wheelchair Training Does the Pt Use a Wheelchair?: No Distance: 100 ft Wheel 50 ft with 2 turns (QC): 3 Wheel 150 ft (QC): 88 Type of Wheelchair: Manual Stair Training 1 Step (curb) (QC): 9 4 Steps (QC): 9 12 Steps (QC): 9 Balance Picking up an Object (QC): 88 ADL-Treatment Eating (QC): 6 Oral Hygiene (QC): 6 Bathing Location: L Arm, R Arm, L Upper Leg, R Upper Leg, L Lower Leg (including foot), R Lower Leg (including foot), Chest, Abdomen, Buttocks, Perineal Area Shower/Bathe Self (QC): 4 (SUP in stance. SBA during LB washing due to precaution managmenet. ) Upper Body Dressing (QC): 6 Lower Body Dressing (QC): 4 (cues for importance of precautions. ) On/Off Footwear (QC): 3 (min A- pt frustrated with task, requires assist. ) Toileting Hygiene (QC): 6 Toilet Transfer (QC): 4 (SUP) Assessment/Plan Assessment and Plan Assess & Plan/Chief Complaint Assessment: s/p right hip fracture with uncomplicated repair by Dr Irizarry UTI PD Smoker Falls Wheezing now resolved and confirms dx of COPD s/p steroid management Constipation Plan: Lovenox Fall risk IRF protocol Home meds Cardiology evaluation Nebs O2 ICS Steroids Fleets prn (1) Pathological fracture of right femur due to osteoporosis (2) Fracture of hip, right, closed Status: Acute (3) UTI (urinary tract infection) (4) Parkinson disease (5) Smoker (6) Wheezing (7) Congestion of upper respiratory tract (8) Constipation (9) Fall Status: Acute SHAYAN LI DO March 04, 2020 09:15
[2020-03-04] MEDS: HYDROcodone/APAP 7.5 MG/325 MG (LORTAB, LORCET PLUS) TABLET PO PRN ×2 (10:10→20:02)
--- NOTE | 2020-03-04 10:10 | Cardiology Progress Note ---
Subjective Date Seen by Provider: March 04, 2020 Time Seen by Provider: 08:20 Subjective/Events-last exam Patient with PT this morning, denies any chest pain or dyspnea. Review of Systems General: No Chills, No Night Sweats, No Fatigue, No Malaise, No Appetite, No Other HEENT: No Head Aches, No Visual Changes, No Eye Pain, No Ear Pain, No Dysphasia, No Sinus Congestion, No Post Nasal Drip, No Sore Throat, No Other Pulmonary: No Dyspnea, No Cough, No Pleuritic Chest Pain, No Other Cardiovascular: No: Chest Pain, Palpitations, Orthopnea, Paroxysmal Noc. Dyspnea, Edema, Lt Headedness, Other Objective-Cardiology Exam Last Set of Vital Signs Vital Signs 03/04/20 03/04/20 06:55 09:00 Temp 36.4 Pulse 67 Resp 20 B/P (MAP) 138/54 (82) Pulse Ox 95 O2 Delivery Room Air Capillary Refill : Less Than 3 SecondsLess Than 3 Seconds I&O Intake and Output 03/04/20 00:00 Intake Total 1940 ml Balance 1940 ml Intake Oral 1940 ml # Voids 8 # Bowel Movements 1 General: Alert, Oriented X3, Cooperative HEENT: Atraumatic, PERRLA Neck: Supple, No JVD, No Thyromegaly Lungs: Other (inspiratory wheezing) Heart: Regular Rate, Normal S1, Normal S2, No Murmurs Abdomen: Normal Bowel Sounds, Soft, No Tenderness Extremities: No Clubbing, No Cyanosis, No Edema Skin: No Rashes, No Significant Lesion Neuro: Normal Speech, Cranial Nerves 3-12 NL Psych/Mental Status: Mental Status NL, Mood NL Results Lab Laboratory Tests 03/04/20 05:05 A/P-Cardiology Admission Diagnosis Right hip fx Dyspnea Palpitations Tobaccoism Assessment/Plan Right hip fracture, s/p repair on 02/24/2020, continue with PT/OT Dyspnea, reports chronic dyspnea for past several years, slight increase in dyspnea over the past month, probable underlying COPD. 2D Echo done 02/26/2020 revealed grade I diastolic dysfunction, EF 55-60%, PA 25mmHg. Palpitations, occurring infrequently, continue to monitor. Tobaccoism, educated on the importance of smoking cessation. Parkinson, management per PCP. UTI- continue on antibiotic, management per PCP Patient was seen and evaluated with Vale, examination performed, management plan was discussed, agree with the current scribed note, I made few changes to the note using Italic font Patient was sitting in a chair, feeling better Denied any chest pain or shortness of breath Lungs were clear to auscultation, heart is regular No further episode of palpitation Continue on current medication and continue to monitor Clinical Quality Measures DVT/VTE Risk/Contraindication: Risk Factor Score Per Nursin RFS Level Per Nursing on Admit: 4+=Very High VALE CEJA March 04, 2020 10:10 am LAURYN GUERRERO MD March 04, 2020 10:44 am
--- NOTE | 2020-03-04 11:16 | Occupational Ther Daily Note ---
OT Current Status-Daily Note Subjective Pt seen in [facility], expresses 3/10 pain in R hip. Pt agrees to OT tx session. [id number]: Pt seen in [facility], agrees to OT. Pt expresses minimal pain in hip. States 3/3 precautions with accuracy. Mental Status/Objective Patient Orientation: Person, Place, Time, Situation, Normal For Age ADL-Treatment Therapy Code Descriptions/Definitions Functional [place] Measure: 0=Not Assessed/NA 4=Minimal Assistance 1=Total Assistance 5=Supervision or Setup 2=Maximal Assistance 6=Modified [place] 3=Moderate Assistance 7=Complete IndependenceSCALE: Activities may be completed with or without assistive devices. 0-Epnltwbtwg-aiplqrw completes the activity by him/herself with no assistance from a helper. 5-Set-up or Clean-up Assistance-helper sets up or cleans up; patient completes activity. [place] assists only prior to or following the activity. 4-Supervision or Touching Assistance-helper provides verbal cues and/or touching/steadying and/or contact guard assistance as patient completes activity. Assistance may be provided throughout the activity or intermittently. 3-Partial/Moderate Assistance-helper does LESS THAN HALF the effort. [place] lifts, holds or supports trunk or limbs, but provides less than half the effort. 2-Substantial/Maximal Assistance-helper does MORE THAN HALF the effort. [place] lifts or holds trunk or limbs and provides more than half the effort. 6-Jpgcndcia-cndiwr does ALL the effort. Patient does none of the effort to complete the activity. Or, the assistance of 2 or more helpers is required for the patient to complete the activity. If activity was not attempted, code reason: 7-Patient Refused. 9-Not Applicable-not attempted and the patient did not perform the activity before the current illness, exacerbation or injury. 10-Not Attempted due to Environmental Limitations-(lack of equipment, weather restraints, etc.). 88-Not Attempted due to Medical Conditions or Safety Concerns. Eating (QC): 6 Oral Hygiene (QC): 7 Shower/Bathe Self (QC): 7 Upper Body Dressing (QC): 6 Lower Body Dressing (QC): 7 On/Off Footwear: 7 Toileting Hygiene (QC): 6 Toilet Transfer (QC): 4 (SUP) Other Treatment Pt seen in [facility], ambulates to therapy gym. Pt completes 15 min arm bike ex with mod resistance to increase functional endurance. Pt completes with one rest break. pt completes 3 sets of 15 reps of the following exercises with 3# weights bilaterally: bicep curls, shoulder flexion, tricep extensions, internal/ external shoulder rotation. Pt ambulates to recliner, gathers shirt/ pants to change and completes UE with IND, declines LE changing. Pt ambulates and toilets with SUP, returns to recliner with all needs met, call light in reach. [id number] (15): Pt sit to stand from chair with SBA, ambulates through ARU floor with SBA. Completes kitchen mobility task with SBA (takes items from fridge, crosses midline, places items in microwave) while managing walker with skilled cues for placement. Pt returns to room. States daughter will live with pt for 2 weeks once home for assist, stating daughter will assist with any task. Pt sits in chair, pt educated on continued edema management as R ankle appears more edematous: 5 calf pumps and 5 ankle circles to increase edema flow. Pt's RLE propped with pillow, all needs met, call light in reach. Education OT Patient Education: Correct positioning, Progress toward Goal/Update tx plan, Purpose of tx/functional activities, Safety issues Teaching Recipient: Patient Teaching Methods: Demonstration, Discussion Response to Teaching: Verbalize Understanding, Return Demonstration OT Short Term Goals Short Term Goals Lower body dressin Putting on/taking off footwear: 5 OT Skilled Nursing Goals Claim Clinician Goals Time Frame: March 11, 2020 Eating (QC): 6 Oral Hygiene (QC): 6 Toileting Hygiene (QC): 6 Shower/Bathe Self (QC): 6 Upper Body Dressing (QC): 6 Lower Body Dressing (QC): 6 On/Off Footwear (QC): 6 Additional Goals: 1-Demonstrate ADL Tasks, 2-Verbalize Understanding, 3- ImproveStrength/Ramon 1=Demonstrate adherence to instructed precautions during ADL tasks. 2=Patient will verbalize/demonstrate understanding of assistive devices/modifications for ADL. 3=Patient will improve strength/tolerance for activity to enable patient to perform ADL's. OT Education/Plan Problem List/Assessment Assessment: Decreased Activ Tolerance, Edema Discharge Recommendations Plan/Recommendations: Continue POC Therapy Discharge Recommendati: Intermittent Supervision Treatment Plan/Plan of Care Treatment,Training & Education: Yes Patient would benefit from OT for education, treatment and training to promote independence in ADL's, mobility, safety and/or upper extremity function for ADL's. Plan of Care: ADL Retraining, Concurrent Therapy, Functional Mobility, Group Exercise/Act as Ind, UE Funct Exercise/Act, W/C Management Training Treatment Duration: March 11, 2020 Frequency: At least 5 of 7 days/Wk (IRF) Estimated Hrs Per Day: 1.5 hours per day Agreement: Yes Rehab Potential: Good Time/GCodes Start Time: 10:05 (1335) Stop Time: 11:10 (1350) Total Time Billed (hr/min): 80 (65+15) Billed Treatment Time [id number]: 1, ADL, EX 3 (65) [id number]: 1, FA (15) Total: 80 GAVINO LIVINGSTON OTR March 04, 2020 11:16
--- NOTE | 2020-03-04 12:52 | Speech Therapy Daily Note ---
Speech Daily Progress Note Subjective Date Seen by Provider: March 04, 2020 Time Seen by Provider: 00:30 Patient was resting in her recliner following PT session. Objective Patient completed memory task of repeating a series of 3 random words forward and backward with 90% accuracy given minimal v/c's and/or repetitions. Assessment Assessment Current Status: Good Progress Treatment Plan Continue Plan of Care Speech Short Term Goals Short Term Goals Short Term Goals 1) Patient will complete memory tasks related to her daily needs at 90% with minimal cues. 1) Patient will complete memory tasks related to her daily needs at 90% with minimal cues. 2) Patient will complete safety awareness tasks related to her daily needs at 90% with minimal cues. 3) Patient will complete problem solving tasks related to her daily needs at 90% with minimal cues. Speech Correction Goals Correction Goals Patient will improve cognitive-communication necessary for safety and daily living tasks with minimal assist. Speech-Plan Patient/Family Goals Patient/Family Goals: Patient plans on returning home post rehab. Treatment Plan Speech Therapy Treatment Plan: Continue Plan of Care Treatment Duration: March 08, 2020 Frequency: 5 times per week Estimated Hrs Per Day: .5 hour per day Rehab Potential: Good Barriers to Learning: Patient initially had mild cognitive deficits, however these have primarily resolved. Pt/Family Agrees to Plan: Yes Safety Risks/Education Teaching Recipient: Patient Teaching Methods: Demonstration, Discussion Response to Teaching: Verbalize Understanding, Return Demonstration Education Topics Provided: Continued safety and communication Time Speech Therapy Time In: 11:30 Speech Therapy Time Out: 12:00 Total Billed Time: 30 Billed Treatment Time 1[address] March 04, 2020 12:52
--- NOTE | 2020-03-04 13:22 | Physical Therapy Daily Note ---
PT Daily Note-Current Subjective Pt. up in chair, agrees to PT. No c/o pain. States she hopes to go home Wednesday. Mental Status Patient Orientation: Person, Place, Time, Situation Transfers SCALE: Activities may be completed with or without assistive devices. 0-Ceowicywld-cqdtzhn completes the activity by him/herself with no assistance from a helper. 5-Set-up or Clean-up Assistance-helper sets up or cleans up; patient completes activity. [place] assists only prior to or following the activity. 4-Supervision or Touching Assistance-helper provides verbal cues and/or touching/steadying and/or contact guard assistance as patient completes activity. Assistance may be provided throughout the activity or intermittently. 3-Partial/Moderate Assistance-helper does LESS THAN HALF the effort. [place] lifts, holds or supports trunk or limbs, but provides less than half the effort. 2-Substantial/Maximal Assistance-helper does MORE THAN HALF the effort. [place] lifts or holds trunk or limbs and provides more than half the effort. 9-Ilsgrvijk-rbmjyd does ALL the effort. Patient does none of the effort to complete the activity. Or, the assistance of 2 or more helpers is required for the patient to complete the activity. If activity was not attempted, code reason: 7-Patient Refused. 9-Not Applicable-not attempted and the patient did not perform the activity before the current illness, exacerbation or injury. 10-Not Attempted due to Environmental Limitations-(lack of equipment, weather restraints, etc.). 88-Not Attempted due to Medical Conditions or Safety Concerns. Sit to Stand (QC): 6 Toilet Transfer (QC): 6 Weight Bearing Right Lower Extremity: Right Full Weight Bearing Left Lower Extremity: Left Full Weight Bearing Gait Training Does the Patient Walk?: Yes Distance: 300 ft Walk 150 ft (QC): 4 Gait Persons Needed: 1 Gait Assistive Device: FWW cues to use UE's to decrease weight on the R LE Treatments gait, toileting Assessment Current Status: Good Progress Pt. is steady with gait but continues to fatigue, particularly in the R hip. Pt. returned to bedside chair post session, call needs met. PT Infection Prevention Coordinator Goals Infection Prevention Coordinator Goals PT Senior Care Goals Time Frame: March 11, 2020 Roll Left & Right (QC): 6 Sit to Lying (QC): 6 Lying-Sitting on Side/Bed(QC): 6 Sit to Stand (QC): 6 Chair/Rtk-lc-Qmulq Xfer(QC): 6 Toilet Transfer (QC): 6 Car Transfer (QC): 4 Does the Patient Walk: Yes Walk 10 feet (QC): 6 Walk 50ft with 2 Turns (QC): 6 Walk 150 ft (QC): 6 Walking 10ft on Uneven Surface: 4 1 Step (curb) (QC): 9 4 Steps (QC): 9 12 Steps (QC): 9 Picking up an Object (QC): 88 Wheel 50 feet with 2 turns (QC: 9 Wheel 150 feet: 9 PT Plan Treatment/Plan Treatment Plan: Continue Plan of Care Treatment Plan: Bed Mobility, Concurrent Therapy, Education, Functional Activity Ramon, Functional Strength, Group Therapy, Gait, Safety, Therapeutic Exercise, Transfers Treatment Duration: March 11, 2020 Frequency: 6 times per week Estimated Hrs Per Day: 1.5 hours per day Patient and/or Family Agrees t: Yes Time/GCodes Time In: 1300 Time Out: 1315 Total Billed Treatment Time: 15 Total Billed Treatment 1, GT 15' BHUMI DIAZ PT March 04, 2020 13:22
--- NOTE | 2020-03-04 14:56 | NUR ---
"RD ASSESSMENT PMHx: Parkinson's disease; currently: hip fracture PT INTERACTION: Pt was awake and pleasant during nutrition follow-up. Pt states she has been eating well since last assessment. Note avg PO intake 75% x3d, per chart review. Pt states no issues with nausea, vomiting, constipation, or diarrhea since last assessment. Note last BM was 5/3 and pt currently on bowel regimen of colace BID; senna BID; and miralax BID, per chart review. ABNORMAL NUTRITION-RELATED LAB VALUES LOW: Pro 6.2 HIGH: Est. kcal needs: 7522-2136 kcal | 20-25 kcal/kg Est. Pro needs: 68-85 g Pro | 0.8-1.0 g Pro/kg PES STATEMENT: Given current PO intake, no nutrition diagnosis at this time (NO-1.1) INTERVENTION: Continue with current diet order of Regular diet. Discontinue current supplementation order of Ensure Enlive with meals TID. Pt is currently eating 75% of meals. Will continue to follow and reassess as pt needs, intake, and status change. MONITOR/EVALUATE: PO Intake; Plan of Care; Hydration Status; Weight Status; Lab Values Joselito Bales, MS, RD, LD"
[2020-03-04 16:00] VITALS: BP 134/66
[2020-03-04] MEDS: guaiFENesin/CODEINE (ROBITUSSIN AC) 10ML UDC PO PRN (20:02)
[2020-03-04] MEDS: MONTELUKAST 10 MG (SINGULAIR) TAB PO SCH (20:32)
[2020-03-04] MEDS: GABAPENTIN 100 MG (NEURONTIN) CAP PO SCH (20:32)
[2020-03-05] MEDS: MULTIVIT W/MINERALS TAB (THERAGRAN M) PO SCH (06:01)
[2020-03-05 06:04] VITALS: BP 116/65
[2020-03-05] MEDS: LACTOBACILLUS ACIDOPHILUS (PROBIOTIC) CAPSULE PO SCH ×3 (08:02→17:29)
[2020-03-05] MEDS: LORATADINE (CLARITIN) 10 MG TAB PO SCH (08:02)
[2020-03-05] MEDS: ASPIRIN E.C. 81 MG (ECOTRIN) TAB PO SCH (08:02)
[2020-03-05] MEDS: SINEMET 25/100 (CARBIDOPA/LEVODOPA) TAB PO SCH ×4 (08:02→21:10)
[2020-03-05] MEDS: SENNOSIDES 8.6 MG (SENOKOT) TAB PO SCH ×2 (08:04→21:13)
[2020-03-05] MEDS: DOCUSATE SODIUM 100 MG (COLACE) CAP PO SCH ×2 (08:04→21:13)
[2020-03-05] MEDS: HYDROcodone/APAP 7.5 MG/325 MG (LORTAB, LORCET PLUS) TABLET PO PRN ×2 (08:04→17:21)
[2020-03-05] MEDS: polyethylene glycoL POWDER 17 GM (MIRALAX) PACK PO SCH ×2 (08:04→21:13)
[2020-03-05] MEDS: SENNA W/DOCUSATE (SENOKOT S) TABLET PO SCH ×2 (08:04→21:13)
[2020-03-05] MEDS: ENOXAPARIN 40 MG/0.4 ML (LOVENOX) SYR SC SCH (08:05)
[2020-03-05] MEDS: DICLOFENAC 1% GEL 100 GM (VOLTAREN) TUBE TOP SCH ×4 (08:05→21:14)
[2020-03-05] MEDS: ADVAIR HFA 115/21 MCG INHALER 8 GM IH SCH ×2 (08:23→18:16)
[2020-03-05] MEDS: RT-ALBUTEROL/IPRATROPIUM 3 ML (DUONEB) VIAL INH SCH ×3 (08:23→18:16)
--- NOTE | 2020-03-05 08:28 | Cardiology Progress Note ---
Subjective Date Seen by Provider: March 05, 2020 Time Seen by Provider: 08:15 Subjective/Events-last exam Patient in room doing ADL's. Denies any chest pain or dyspnea. Review of Systems General: No Chills, No Night Sweats, No Fatigue, No Malaise, No Appetite, No Other HEENT: No Head Aches, No Visual Changes, No Eye Pain, No Ear Pain, No Dysphasia, No Sinus Congestion, No Post Nasal Drip, No Sore Throat, No Other Pulmonary: No Dyspnea, No Cough, No Pleuritic Chest Pain, No Other Cardiovascular: No: Chest Pain, Palpitations, Orthopnea, Paroxysmal Noc. Dyspnea, Edema, Lt Headedness, Other Objective-Cardiology Exam Last Set of Vital Signs Vital Signs 03/05/20 03/05/20 06:04 08:40 Temp 36.6 Pulse 59 Resp 20 B/P (MAP) 116/65 (82) Pulse Ox 95 O2 Delivery Room Air Capillary Refill : Less Than 3 SecondsLess Than 3 Seconds I&O Intake and Output 03/05/20 00:00 Intake Total 1050 ml Balance 1050 ml Intake Oral 1050 ml # Voids 7 General: Alert, Oriented X3, Cooperative HEENT: Atraumatic, PERRLA Neck: Supple, No JVD, No Thyromegaly Lungs: Other (inspiratory wheezing) Heart: Regular Rate, Normal S1, Normal S2, No Murmurs Abdomen: Normal Bowel Sounds, Soft, No Tenderness Extremities: No Clubbing, No Cyanosis, No Edema Skin: No Rashes, No Significant Lesion Neuro: Normal Speech, Cranial Nerves 3-12 NL Psych/Mental Status: Mental Status NL, Mood NL A/P-Cardiology Admission Diagnosis Right hip fx Dyspnea Palpitations Tobaccoism Assessment/Plan Right hip fracture, s/p repair on 02/24/2020, continue with PT/OT Dyspnea, reports chronic dyspnea for past several years, probable underlying COPD. 2D Echo done 02/26/2020 revealed grade I diastolic dysfunction, EF 55-60%, PA 25mmHg. Palpitations, occurring infrequently, continue to monitor. Tobaccoism, educated on the importance of smoking cessation. Parkinson, management per PCP. UTI- continue on antibiotic, management per PCP Patient was seen and evaluated with Vale, examination performed, management plan was discussed, agree with the current scribed note, I made few changes to the note using Italic font Patient is feeling better, no new complaint, denied any chest pain or shortness of breath Possible discharge tomorrow Okay for discharge from cardiology standpoint Clinical Quality Measures DVT/VTE Risk/Contraindication: Risk Factor Score Per Nursin RFS Level Per Nursing on Admit: 4+=Very High VALE CEJA March 05, 2020 08:28 LAURYN GUERRERO MD March 05, 2020 12:26
--- NOTE | 2020-03-05 09:17 | NUR ---
PER THERAPY, PATIENT MAY BE UP AD MONI IN ROOM.
--- NOTE | 2020-03-05 10:20 | NUR ---
Pastoral care visit.
--- NOTE | 2020-03-05 10:25 | PM&R Progress Note ---
Subjective HPI/CC On Admission Date Seen by Provider: March 05, 2020 Time Seen by Provider: 10:15 Subjective/Events-last exam Reports she will leave AMA if she can't go home tomorrow She is able to walk with a walker and does pretty well Her Parkinson's puts her at risk for recurrent falls and fractures Smoking is an issue, she really needs to stop that and we talked about it Bowels are moving well Goes to [facility] [place], [place] for pharmacy, l will send her pain medication there Conferred with RN Reviewed therapy notes Checked meds and labs Review of Systems General: Fatigue Pulmonary: Dyspnea, Cough Musculoskeletal: leg pain Objective Exam Vital Signs Vital Signs Date Time Temp Pulse Resp B/P (MAP) Pulse Ox O2 Delivery O2 Flow Rate FiO2 03/05/20 18:19 Room Air 03/05/20 18:17 98 03/05/20 17:22 36.8 67 18 132/67 (88) Capillary Refill : Less Than 3 SecondsLess Than 3 Seconds General Appearance: No Apparent Distress, WD/WN, Chronically ill, Obese HEENT: PERRL/EOMI, Normal ENT Inspection, Pharynx Normal Neck: Full Range of Motion, Normal Inspection, Non Tender, Supple, Carotid B ruit Respiratory: Chest Non Tender, Lungs Clear, Normal Breath Sounds, No Accessory Muscle Use, No Respiratory Distress Cardiovascular: Regular Rate, Rhythm, No Edema, No Gallop, No JVD, No Murmur, Normal Peripheral Pulses Gastrointestinal: Normal Bowel Sounds, No Organomegaly, No Pulsatile Mass, Non Tender, Soft Back: Normal Inspection, No CVA Tenderness, No Vertebral Tenderness Extremity: Normal Capillary Refill, Normal Inspection, Normal Range of Motion (except right leg from hip fracture site), Non Tender, No Calf Tenderness, No Pedal Edema Neurologic/Psychiatric: Alert, Oriented x3, No Motor/Sensory Deficits, Normal Mood/Affect Skin: Normal Color, Warm/Dry Lymphatic: No Adenopathy Results/Procedures Lab Patient resulted labs reviewed. FIM Transfers Therapy Code Descriptions/Definitions Functional [place] Measure: 0=Not Assessed/NA 4=Minimal Assistance 1=Total Assistance 5=Supervision or Setup 2=Maximal Assistance 6=Modified [place] 3=Moderate Assistance 7=Complete IndependenceSCALE: Activities may be completed with or without assistive devices. 9-Zidcxdnbjm-itlwdax completes the activity by him/herself with no assistance from a helper. 5-Set-up or Clean-up Assistance-helper sets up or cleans up; patient completes activity. [place] assists only prior to or following the activity. 4-Supervision or Touching Assistance-helper provides verbal cues and/or touching/steadying and/or contact guard assistance as patient completes activity. Assistance may be provided throughout the activity or intermittently. 3-Partial/Moderate Assistance-helper does LESS THAN HALF the effort. [place] lifts, holds or supports trunk or limbs, but provides less than half the effort. 2-Substantial/Maximal Assistance-helper does MORE THAN HALF the effort. [place] lifts or holds trunk or limbs and provides more than half the effort. 2-Qlrcwwrxc-trpwst does ALL the effort. Patient does none of the effort to complete the activity. Or, the assistance of 2 or more helpers is required for the patient to complete the activity. If activity was not attempted, code reason: 7-Patient Refused. 9-Not Applicable-not attempted and the patient did not perform the activity before the current illness, exacerbation or injury. 10-Not Attempted due to Environmental Limitations-(lack of equipment, weather restraints, etc.). 88-Not Attempted due to Medical Conditions or Safety Concerns. Roll Left to Right (QC): 2 Sit to Lying (QC): 5 Sit to Stand (QC): 6 Chair/Mbl-zq-Lmzxs Xfer(QC): 3 Car Transfer (QC): 88 Gait Training Does the Patient Walk?: Yes Distance: 300 ft Walk 10 feet (QC): 4 Walk 50 ft with 2 Turns(QC): 4 Walk 150 ft (QC): 4 Walking 10ft/uneven surface-QC: 88 Gait Persons Needed: 1 Gait Assistive Device: FWW Wheelchair Training Does the Pt Use a Wheelchair?: No Distance: 100 ft Wheel 50 ft with 2 turns (QC): 3 Wheel 150 ft (QC): 88 Type of Wheelchair: Manual Stair Training 1 Step (curb) (QC): 9 4 Steps (QC): 9 12 Steps (QC): 9 Balance Picking up an Object (QC): 88 ADL-Treatment Eating (QC): 6 Oral Hygiene (QC): 7 Bathing Location: L Arm, R Arm, L Upper Leg, R Upper Leg, L Lower Leg (including foot), R Lower Leg (including foot), Chest, Abdomen, Buttocks, Perineal Area Shower/Bathe Self (QC): 7 Upper Body Dressing (QC): 6 Lower Body Dressing (QC): 7 On/Off Footwear (QC): 7 Toileting Hygiene (QC): 6 Toilet Transfer (QC): 4 (SUP) Assessment/Plan Assessment and Plan Assess & Plan/Chief Complaint Assessment: s/p right hip fracture with uncomplicated repair by Dr Irizarry UTI PD Smoker Falls Wheezing now resolved and confirms dx of COPD s/p steroid management Constipation Plan: Lovenox Fall risk IRF protocol Home meds Cardiology evaluation Nebs O2 ICS Steroids Fleets prn DC tomorrow (1) 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
--- NOTE | 2020-03-05 10:32 | Physical Therapy Daily Note ---
PT Daily Note-Current Subjective Pt. up in chair, agrees to PT but is adamant to leave tomorrow. Pain rated 2/10 in the R hip. Mental Status Patient Orientation: Person, Place, Time, Situation Transfers SCALE: Activities may be completed with or without assistive devices. 2-Yzpzqzxlqh-supxfld completes the activity by him/herself with no assistance from a helper. 5-Set-up or Clean-up Assistance-helper sets up or cleans up; patient completes activity. [place] assists only prior to or following the activity. 4-Supervision or Touching Assistance-helper provides verbal cues and/or touching/steadying and/or contact guard assistance as patient completes activ ity. Assistance may be provided throughout the activity or intermittently. 3-Partial/Moderate Assistance-helper does LESS THAN HALF the effort. [place] lifts, holds or supports trunk or limbs, but provides less than half the effort. 2-Substantial/Maximal Assistance-helper does MORE THAN HALF the effort. [place] lifts or holds trunk or limbs and provides more than half the effort. 3-Kdgovjrzy-zfqywr does ALL the effort. Patient does none of the effort to complete the activity. Or, the assistance of 2 or more helpers is required for the patient to complete the activity. If activity was not attempted, code reason: 7-Patient Refused. 9-Not Applicable-not attempted and the patient did not perform the activity before the current illness, exacerbation or injury. 10-Not Attempted due to Environmental Limitations-(lack of equipment, weather restraints, etc.). 88-Not Attempted due to Medical Conditions or Safety Concerns. Sit to Stand (QC): 6 Weight Bearing Right Lower Extremity: Right Full Weight Bearing Left Lower Extremity: Left Full Weight Bearing Gait Training Does the Patient Walk?: Yes Distance: 2 x 150 ft Walk 10 feet (QC): 6 Walk 50 ft with 2 Turns(QC): 6 Walk 150 ft (QC): 6 Gait Assistive Device: FWW Exercises Seated Therapy Exercises: Ankle pumps, Sit to stand, Long arc quads, Hip abd/add, Glut set Seated Reps: 20 Standing: Heel/toe raises, Marching, Side steps (1 trip in // bars) Standing Reps: 15 NuStep Minutes: 10 NuStep Workload: 4 Treatments LE strengthening, gait Assessment Current Status: Good Progress Pt. had more c/o R hip this AM but rated 2/10 with recent pain pill. Pt. john ins very weak in the R hip but is steady with gait and overall progressing very well. Pt. up in bedside chair post session with call light and all needs met, pt. up ad mary in room, planning D/C 03/06/20. PT Custodial Goals Dermatopathologist Goals PT Custodial Goals Time Frame: March 11, 2020 Roll Left & Right (QC): 6 Sit to Lying (QC): 6 Lying-Sitting on Side/Bed(QC): 6 Sit to Stand (QC): 6 Chair/Kva-yd-Ptzwk Xfer(QC): 6 Toilet Transfer (QC): 6 Car Transfer (QC): 4 Does the Patient Walk: Yes Walk 10 feet (QC): 6 Walk 50ft with 2 Turns (QC): 6 Walk 150 ft (QC): 6 Walking 10ft on Uneven Surface: 4 1 Step (curb) (QC): 9 4 Steps (QC): 9 12 Steps (QC): 9 Picking up an Object (QC): 88 Wheel 50 feet with 2 turns (QC: 9 Wheel 150 feet: 9 PT Plan Treatment/Plan Treatment Plan: Continue Plan of Care Treatment Plan: Bed Mobility, Concurrent Therapy, Education, Functional Activity Ramon, Functional Strength, Group Therapy, Gait, Safety, Therapeutic Exercise, Transfers Treatment Duration: March 11, 2020 Frequency: 6 times per week Estimated Hrs Per Day: 1.5 hours per day Patient and/or Family Agrees t: Yes Time/GCodes Time In: 815 Time Out: 900 Total Billed Treatment Time: 45 Total Billed Treatment 1, GT 10', Ex 35' BHUMI DIAZ PT March 05, 2020 10:32
--- NOTE | 2020-03-05 10:39 | Occupational Ther Daily Note ---
OT Current Status-Daily Note Subjective Pt seen in recliner chair. Pt denies pain at the moment. Agrees to OT tx session. Mental Status/Objective Patient Orientation: Person, Place, Situation ADL-Treatment Therapy Code Descriptions/Definitions Functional [place] Measure: 0=Not Assessed/NA 4=Minimal Assistance 1=Total Assistance 5=Supervision or Setup 2=Maximal Assistance 6=Modified [place] 3=Moderate Assistance 7=Complete IndependenceSCALE: Activities may be completed with or without assistive devices. 6-Hcwqvvisoi-lkjjorf completes the activity by him/herself with no assistance from a helper. 5-Set-up or Clean-up Assistance-helper sets up or cleans up; patient completes activity. [place] assists only prior to or following the activity. 4-Supervision or Touching Assistance-helper provides verbal cues and/or touching/steadying and/or contact guard assistance as patient completes activity. Assistance may be provided throughout the activity or intermittently. 3-Partial/Moderate Assistance-helper does LESS THAN HALF the effort. [place] lifts, holds or supports trunk or limbs, but provides less than half the effort. 2-Substantial/Maximal Assistance-helper does MORE THAN HALF the effort. [place] lifts or holds trunk or limbs and provides more than half the effort. 9-Usnpwfdoe-aoypbj does ALL the effort. Patient does none of the effort to complete the activity. Or, the assistance of 2 or more helpers is required for the patient to complete the activity. If activity was not attempted, code reason: 7-Patient Refused. 9-Not Applicable-not attempted and the patient did not perform the activity before the current illness, exacerbation or injury. 10-Not Attempted due to Environmental Limitations-(lack of equipment, weather restraints, etc.). 88-Not Attempted due to Medical Conditions or Safety Concerns. Eating (QC): 6 Oral Hygiene (QC): 6 Bathing Location: L Arm, R Arm, L Upper Leg, R Upper Leg, L Lower Leg (including foot), R Lower Leg (including foot), Chest, Abdomen, Buttocks, Perineal Area Shower/Bathe Self (QC): 4 (SUP during stance in shower, completes all bathing with maintenance of precautions, use of LHS) Upper Body Dressing (QC): 6 (gathers clothing and completes with IND.) Lower Body Dressing (QC): 4 (SBA due to maintenance of precautions, use of dressing stick to doff and centrifugal screen tender to don.) On/Off Footwear: 3 (min A to get over heel (pt attempts to use shoe horn, unable to complete with accuracty)) Toileting Hygiene (QC): 6 (IND in sit.) Toilet Transfer (QC): 4 (SUP with use of walker ) Other Treatment Pt completes ADL tasks on this date as above. Pt able to accurately state precautions. Pt expresses during LB dressing tasks that she won't be utilizing AE at home. Pt re-educated on use of AE and maintenance of precautions and that if pt does not desire to utilize then daughter will assist. Pt agrees, stating she understands. Pt returns to recliner, RIMMA christianson. pt completes LE edema management tasks with skilled cues from OT, pt completes diaphragmatic breathing, LN stimulation, and edema exercises. Pt declines worries at home. Pt and OT discuss work environment, pt to replace office chair with solid/ sturdy chair. Pt left in chair with call light in reach, all needs met. Pt to d/c tomorrow. Education OT Patient Education: Energy conservation, Modified ADL techniques, Progress toward Goal/Update tx plan, Reviewed precautions, Safety issues Teaching Recipient: Patient Teaching Methods: Demonstration, Discussion Response to Teaching: Verbalize Understanding, Return Demonstration, Reinforcement Needed OT Short Term Goals Short Term Goals Lower body dressin Putting on/taking off footwear: 5 OT Skilled Nursing Goals Government Auditor Goals Time Frame: March 11, 2020 Eating (QC): 6 Oral Hygiene (QC): 6 Toileting Hygiene (QC): 6 Shower/Bathe Self (QC): 6 Upper Body Dressing (QC): 6 Lower Body Dressing (QC): 6 On/Off Footwear (QC): 6 Additional Goals: 1-Demonstrate ADL Tasks, 2-Verbalize Understanding, 3- ImproveStrength/Ramon 1=Demonstrate adherence to instructed precautions during ADL tasks. 2=Patient will verbalize/demonstrate understanding of assistive devices/modifications for ADL. 3=Patient will improve strength/tolerance for activity to enable patient to perform ADL's. OT Education/Plan Problem List/Assessment Assessment: Decreased Activ Tolerance, Edema, Impaired Funct Balance, Impaired I ADL's, Impaired Self-Care Skills Discharge Recommendations Plan/Recommendations: Continue POC Therapy Discharge Recommendati: Intermittent Supervision, Home & Family Equpiment Recommendations-D/C: Hip Kit, Walker Bag or Basket Treatment Plan/Plan of Care Treatment,Training & Education: Yes Patient would benefit from OT for education, treatment and training to promote independence in ADL's, mobility, safety and/or upper extremity function for ADL's. Plan of Care: ADL Retraining, Concurrent Therapy, Functional Mobility, Group Exercise/Act as Ind, UE Funct Exercise/Act, W/C Management Training Treatment Duration: March 11, 2020 Frequency: At least 5 of 7 days/Wk (IRF) Estimated Hrs Per Day: 1.5 hours per day Agreement: Yes Rehab Potential: Good Time/GCodes Start Time: 09:15 Stop Time: 10:15 Total Time Billed (hr/min): 60 Billed Treatment Time 1, ADL 3, EX (60) GAVINO LIVINGSTON OTR March 05, 2020 10:39
--- NOTE | 2020-03-05 10:49 | Physical Therapy Daily Note ---
PT Daily Note-Current Subjective Patient reluctantly agrees to PT. Patient states she just wants to go home. Pain Numeric Pain Scale: 5-Moderate Pain Location: Medial Location Body Site: Hip Pain Description: Acute Mental Status Patient Orientation: Normal For Age Transfers SCALE: Activities may be completed with or without assistive devices. 9-Bslaxduqlb-iwobmtf completes the activity by him/herself with no assistance from a helper. 5-Set-up or Clean-up Assistance-helper sets up or cleans up; patient completes activity. [place] assists only prior to or following the activity. 4-Supervision or Touching Assistance-helper provides verbal cues and/or touching/steadying and/or contact guard assistance as patient completes activity. Assistance may be provided throughout the activity or intermittently. 3-Partial/Moderate Assistance-helper does LESS THAN HALF the effort. [place] lifts, holds or supports trunk or limbs, but provides less than half the effort. 2-Substantial/Maximal Assistance-helper does MORE THAN HALF the effort. [place] lifts or holds trunk or limbs and provides more than half the effort. 5-Sadsvunwq-qtkqyu does ALL the effort. Patient does none of the effort to complete the activity. Or, the assistance of 2 or more helpers is required for the patient to complete the activity. If activity was not attempted, code reason: 7-Patient Refused. 9-Not Applicable-not attempted and the patient did not perform the activity before the current illness, exacerbation or injury. 10-Not Attempted due to Environmental Limitations-(lack of equipment, weather restraints, etc.). 88-Not Attempted due to Medical Conditions or Safety Concerns. Roll Left & Right (QC): 6 Sit to Lying (QC): 6 Lying to Sitting/Side of Bed(Q: 6 Sit to Stand (QC): 6 Chair/Nxt-eo-Tdtoa Xfer(QC): 6 Toilet Transfer (QC): 6 Car Transfer (QC): 6 Weight Bearing Right Lower Extremity: Right Full Weight Bearing Left Lower Extremity: Left Full Weight Bearing Gait Training Does the Patient Walk?: Yes Distance: 250' x 2 Walk 10 feet (QC): 6 Walk 50 ft with 2 Turns(QC): 6 Walk 150 ft (QC): 6 Walking 10ft/uneven surface-QC: 6 Gait Assistive Device: FWW steady and antalgic Wheelchair Training Does the Pt Use a Wheelchair?: No Stair Training 1 Step (curb) (QC): 9 4 Steps (QC): 9 12 Steps (QC): 9 Balance Picking up an Object (QC): 5 Assessment Patient requires much encouragement to participate with therapy. Plan dismissal to home in a.m. PT Usp Goals Case Loader Operator Goals PT Case Loader Operator Goals Time Frame: March 11, 2020 Roll Left & Right (QC): 6 (met 03/05/20) Sit to Lying (QC): 6 (met 03/05/20) Lying-Sitting on Side/Bed(QC): 6 (met 03/05/20) Sit to Stand (QC): 6 (met 03/05/20) Chair/Bux-fa-Nzblp Xfer(QC): 6 (met 03/05/20) Toilet Transfer (QC): 6 (met 03/05/20) Car Transfer (QC): 4 (met 03/05/20) Does the Patient Walk: Yes Walk 10 feet (QC): 6 (met 03/05/20) Walk 50ft with 2 Turns (QC): 6 (met 03/05/20) Walk 150 ft (QC): 6 (met 03/05/20) Walking 10ft on Uneven Surface: 4 (met 03/05/20) 1 Step (curb) (QC): 9 (03/05/20) 4 Steps (QC): 9 (03/05/20) 12 Steps (QC): 9 (03/05/20) Picking up an Object (QC): 88 (electronic warfare operator 03/05/20) Wheel 50 feet with 2 turns (QC: 9 (03/05/20) Wheel 150 feet: 9 (03/05/20) PT Plan Treatment/Plan Treatment Plan: Continue Plan of Care Treatment Plan: Bed Mobility, Concurrent Therapy, Education, Functional Activity Ramon, Functional Strength, Group Therapy, Gait, Safety, Therapeutic Exercise, Transfers Treatment Duration: March 11, 2020 Frequency: 6 times per week Estimated Hrs Per Day: 1.5 hours per day Patient and/or Family Agrees t: Yes Time/GCodes Time In: 1015 Time Out: 1045 Total Billed Treatment Time: 30 Total Billed Treatment 1 visit FA x 2 30 min LYNDSAY MAGAÑA PT March 05, 2020 10:49
--- NOTE | 2020-03-05 12:00 | Speech Therapy Daily Note ---
Speech Daily Progress Note Subjective Date Seen by Provider: March 05, 2020 Time Seen by Provider: 00:30 Patient was resting in her recliner when I entered her room. Objective Patient completed a series of "what's wrong with this picture?" with 90% given minimal cuing. Assessment Assessment Current Status: Good Progress Treatment Plan Continue Plan of Care Speech Short Term Goals Short Term Goals Short Term Goals 1) Patient will complete memory tasks related to her daily needs at 90% with minimal cues. 1) Patient will complete memory tasks related to her daily needs at 90% with minimal cues. 2) Patient will complete safety awareness tasks related to her daily needs at 90% with minimal cues. 3) Patient will complete problem solving tasks related to her daily needs at 90% with minimal cues. Speech Fish Boning Machine Feeder Goals Fish Boning Machine Feeder Goals Patient will improve cognitive-communication necessary for safety and daily living tasks with minimal assist. Speech-Plan Patient/Family Goals Patient/Family Goals: Patient will be returning to her apartment upon hospital discharge. Treatment Plan Speech Therapy Treatment Plan: Continue Plan of Care Treatment Duration: March 08, 2020 Frequency: 5 times per week Estimated Hrs Per Day: .5 hour per day Rehab Potential: Good Barriers to Learning: Patient's recent fractured hip Pt/Family Agrees to Plan: Yes Safety Risks/Education Teaching Recipient: Patient Teaching Methods: Demonstration, Discussion Response to Teaching: Verbalize Understanding, Return Demonstration Education Topics Provided: Continued safety upon her return home. Time Speech Therapy Time In: 11:30 Speech Therapy Time Out: 12:00 Total Billed Time: 30 Billed Treatment Time 1, SLTS No QUALITY CODES: EXPRESSION OF IDEAS/WANTS: 4 UNDERSTANDING VERBAL CONTENT: 4 BRIEF INTERVIEW MENTAL STATUS: YES REPETITION OF 3 WORDS: 3 TEMPORAL ORIENTATION: YEAR: CORRECT, MONTH: CORRECT, DAY: CORRECT RECALL SOCK: YES, COLOR: YES, BED: YES MEMORY/RECALL ABILITY: SEASON, LOCATION OF ROOM, STAFF NAMES, THAT SHE IS IN THE HOSPITAL ANTONIA SAMPSON March 05, 2020 12:00
--- NOTE | 2020-03-05 13:42 | Occupational Ther Daily Note ---
OT Current Status-Daily Note Subjective Pt seen in recliner chair, states minimal pain in hip. Pt agrees to exercises. ADL-Treatment Therapy Code Descriptions/Definitions Functional [place] Measure: 0=Not Assessed/NA 4=Minimal Assistance 1=Total Assistance 5=Supervision or Setup 2=Maximal Assistance 6=Modified [place] 3=Moderate Assistance 7=Complete IndependenceSCALE: Activities may be completed with or without assistive devices. 4-Yghfilkbrg-czfxkln completes the activity by him/herself with no assistance from a helper. 5-Set-up or Clean-up Assistance-helper sets up or cleans up; patient completes activity. [place] assists only prior to or following the activity. 4-Supervision or Touching Assistance-helper provides verbal cues and/or touching/steadying and/or contact guard assistance as patient completes activity. Assistance may be provided throughout the activity or intermittently. 3-Partial/Moderate Assistance-helper does LESS THAN HALF the effort. [place] lifts, holds or supports trunk or limbs, but provides less than half the effort. 2-Substantial/Maximal Assistance-helper does MORE THAN HALF the effort. [place] lifts or holds trunk or limbs and provides more than half the effort. 6-Xfqzyukca-sprpxb does ALL the effort. Patient does none of the effort to complete the activity. Or, the assistance of 2 or more helpers is required for the patient to complete the activity. If activity was not attempted, code reason: 7-Patient Refused. 9-Not Applicable-not attempted and the patient did not perform the activity before the current illness, exacerbation or injury. 10-Not Attempted due to Environmental Limitations-(lack of equipment, weather restraints, etc.). 88-Not Attempted due to Medical Conditions or Safety Concerns. Other Treatment Pt sit to stand SUP, ambulates with SBA with 2WW to therapy gym. Pt completes balance/ UE midline crossing in sit and in stance to work on increased balance; pt completes standing task for ~2 min with good balance and SBA. Pt c/o pain during walking task to room, states it feels "swollen/ heavy." Pt returns to room, all needs met, call light in reach. Education OT Patient Education: Correct positioning Teaching Recipient: Patient Teaching Methods: Demonstration, Discussion Response to Teaching: Verbalize Understanding, Return Demonstration OT Short Term Goals Short Term Goals Lower body dressin Putting on/taking off footwear: 5 OT Skilled Nursing Goals Floor Sweeper Goals Time Frame: March 11, 2020 Eating (QC): 6 Oral Hygiene (QC): 6 Toileting Hygiene (QC): 6 Shower/Bathe Self (QC): 6 Upper Body Dressing (QC): 6 Lower Body Dressing (QC): 6 On/Off Footwear (QC): 6 Additional Goals: 1-Demonstrate ADL Tasks, 2-Verbalize Understanding, 3- ImproveStrength/Ramon 1=Demonstrate adherence to instructed precautions during ADL tasks. 2=Patient will verbalize/demonstrate understanding of assistive devices/modifi cations for ADL. 3=Patient will improve strength/tolerance for activity to enable patient to perform ADL's. OT Education/Plan Problem List/Assessment Assessment: Decreased Activ Tolerance Discharge Recommendations Plan/Recommendations: Continue POC Therapy Discharge Recommendati: Intermittent Supervision Equpiment Recommendations-D/C: Hip Kit Treatment Plan/Plan of Care Treatment,Training & Education: Yes Patient would benefit from OT for education, treatment and training to promote independence in ADL's, mobility, safety and/or upper extremity function for ADL's. Plan of Care: ADL Retraining, Concurrent Therapy, Functional Mobility, Group Exercise/Act as Ind, UE Funct Exercise/Act, W/C Management Training Treatment Duration: March 11, 2020 Frequency: At least 5 of 7 days/Wk (IRF) Estimated Hrs Per Day: 1.5 hours per day Agreement: Yes Rehab Potential: Good Time/GCodes Start Time: 13:15 Stop Time: 13:30 Total Time Billed (hr/min): 15 Billed Treatment Time 1, EX (15) GAVINO LIVINGSTON OTR March 05, 2020 13:42
--- NOTE | 2020-03-05 15:25 | NUR ---
CM/SS DISCHARGE PLANNING Event Manager and team have agreed to patient's request to discharge tomorrow back to her apartment. C: Reviewed agencies in patient's service area, she has selected [facility]. Called to check on their schedule availability and they indicate they can begin services 03/07/20. Referral initiated today, will finalize tomorrow with orders/instructions. 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 Patient knows a hip kit was recommended, indications are she has not committed to getting/using this item. IMM2 presented, signed, charted. Patient will self arrange her transport, senior underwriter reminded her to have them bring a FWW.
[2020-03-05 17:22] VITALS: BP 132/67
[2020-03-05] MEDS ORDERED: MULT1TAB63 PO (18:55)
[2020-03-05] MEDS ORDERED: HYDR-34 PO (18:55)
[2020-03-05] MEDS ORDERED: TEMA15CA PO (18:55)
[2020-03-05] MEDS ORDERED: FLUT12AE4 IH (18:55)
[2020-03-05] MEDS ORDERED: SENN-20 PO (18:55)
[2020-03-05] MEDS ORDERED: GABA-486 PO (18:55)
[2020-03-05] MEDS ORDERED: MONT10TA26 PO (18:55)
--- NOTE | 2020-03-05 18:58 | D/C HH Face to Face Order ---
D/C Face to Face Orders Reconcile Patient Problems Problems Reviewed?: Yes Instructions for Patient [facility] Patient Instructions/FollowUp: Dr Chisholm in [address] Irizarry as scheduled Physician to follow Patient: Phan Discharge Diet for Home: No Restrictions Patient Problems: Hip fracture Parkinson's Falls Smoker COPD Goals for Patient: [place] Patient Data-Allergies,Ht & Wt Patient Allergies: Coded Allergies: monosodium glutamate (Verified Allergy, Unknown, blurry vision , 02/23/20) Home Health Need/Face to Face Date of Face to Face: March 06, 2020 Clinical Findings: Generalized weakness and fatigue, Instability, Muscle weakness, Pain with ambulation, Shortness of breath, Unsteady gait I have seen Pt kwvb-rh-kpft: Yes Discharged To: Home Diagnosis/Conditions: Hip fracture Parkinson's Falls Smoker COPD Patient is Homebound due to: Ynes fall risk due to instabilty, Muscle weakness, Pain w/ambulation, Shortness of breath/distress Homebound Status Due to the above stated illness, injury or surgical procedure (medical condition or diagnosis) and associated clinical findings, the patient is homebound because of his/her inability to leave home except with aid of a supportive device and/or person AND leaving the home requires a considerable and taxing effort or is medically contraindicated. Pt req the following assistanc: Walker Home Health Nursing Orders Home Health Services Order: Filling Station Equipment Mechanic-Evaluate & Treat, Physical Therapy-Evaluate & Treat Certify Stmt I certify that this patient is under my care and that I, a nurse practitioner or a physician; a contact center assistant working with me, had a face to face encounter that - meets the physician face to face encounter requirements with this patient as dated. SHAYAN LI DO March 05, 2020 18:58
--- NOTE | 2020-03-05 19:18 | NUR ---
bedside report received from KEVIN MATTSON, assume care of pt.
[2020-03-05] MEDS: MONTELUKAST 10 MG (SINGULAIR) TAB PO SCH (21:11)
[2020-03-05] MEDS: GABAPENTIN 100 MG (NEURONTIN) CAP PO SCH (21:11)
--- NOTE | 2020-03-05 21:13 | NUR ---
pt refused Colace, miralax, Senokot x2 & Voltaren
[2020-03-06 05:59] VITALS: BP 136/69
[2020-03-06] MEDS: MULTIVIT W/MINERALS TAB (THERAGRAN M) PO SCH (06:48)
[2020-03-06] MEDS: RT-ALBUTEROL/IPRATROPIUM 3 ML (DUONEB) VIAL INH SCH (07:13)
[2020-03-06] MEDS: ADVAIR HFA 115/21 MCG INHALER 8 GM IH SCH (07:13)
[2020-03-06] MEDS: SENNA W/DOCUSATE (SENOKOT S) TABLET PO SCH (07:45)
[2020-03-06] MEDS: SENNOSIDES 8.6 MG (SENOKOT) TAB PO SCH (07:45)
[2020-03-06] MEDS: polyethylene glycoL POWDER 17 GM (MIRALAX) PACK PO SCH (07:45)
[2020-03-06] MEDS: DOCUSATE SODIUM 100 MG (COLACE) CAP PO SCH (07:45)
[2020-03-06] MEDS: LACTOBACILLUS ACIDOPHILUS (PROBIOTIC) CAPSULE PO SCH (07:53)
[2020-03-06] MEDS: LORATADINE (CLARITIN) 10 MG TAB PO SCH (07:53)
[2020-03-06] MEDS: ASPIRIN E.C. 81 MG (ECOTRIN) TAB PO SCH (07:53)
[2020-03-06] MEDS: DICLOFENAC 1% GEL 100 GM (VOLTAREN) TUBE TOP SCH (07:54)
[2020-03-06] MEDS: HYDROcodone/APAP 7.5 MG/325 MG (LORTAB, LORCET PLUS) TABLET PO PRN (07:54)
[2020-03-06] MEDS: SINEMET 25/100 (CARBIDOPA/LEVODOPA) TAB PO SCH (07:54)
[2020-03-06] MEDS: ENOXAPARIN 40 MG/0.4 ML (LOVENOX) SYR SC SCH (07:54)
--- NOTE | 2020-03-06 08:09 | Therapy Team Discharge Summary ---
Therapy Discharge Summary Discharge Recommendations Date of Discharge Occupational Therapy Pt admits with R hip fx dx. Pt admits with showering 3, UB 5, LB 2, footwear 1, and toilet hygiene 4. Pt limited during therapy session due to pain/ motivation/ decreased retention on hip precautions. Pt d/c's home with daughter to assist with d/c QCs as: showering 4, UB dress 6, LB dress 4, footwear 3, toilet hygiene 6. D/c OT at this time. Decreased Activ Tolerance PT Kettle Fry Cook Operator Goals Kettle Fry Cook Operator Goals PT Kettle Fry Cook Operator Goals Time Frame: March 11, 2020 Roll Left to Right (QC): 6 (met 03/05/20) Sit to Lying (QC): 6 (met 03/05/20) Lying-Sitting on Side/Bed(QC): 6 (met 03/05/20) Sit to Stand (QC): 6 (met 03/05/20) Chair/Sgq-iy-Pzvzo Xfer(QC): 6 (met 03/05/20) Car Transfer (QC): 4 (met 03/05/20) Does the Patient Walk: Yes Walk 10 feet (QC): 6 (met 03/05/20) Walk 10ft-Uneven Surface(QC): 4 (met 03/05/20) Walk 50ft with 2 Turns (QC): 6 (met 03/05/20) Walk 150 ft (QC): 6 (met 03/05/20) Wheel 50 feet with 2 turns (QC: 9 (03/05/20) 1 Step (curb) (QC): 9 (03/05/20) 4 Steps (QC): 9 (03/05/20) 12 Steps (QC): 9 (03/05/20) Picking up an Object (QC): 88 (paediatric thoracic physician 03/05/20) OT Jail Goals Jail Goals Time Frame: March 11, 2020 Eating (QC): 6 Oral Hygiene (QC): 6 Shower/Bathe Self (QC): 6 Upper Body Dressing (QC): 6 Lower Body Dressing (QC): 6 On/Off Footwear (QC): 6 Toileting Hygiene (QC): 6 Toilet/Commode Transfer (QC): 6 (met 03/05/20) Additional Goals: 1-Demonstrate ADL Tasks, 2-Verbalize Understanding, 3- ImproveStrength/Ramon 1=Demonstrate adherence to instructed precautions during ADL tasks. 2=Patient will verbalize/demonstrate understanding of assistive devices/modifications for ADL. 3=Patient will improve strength/tolerance for activity to enable patient to perform ADL's. Speech Kettle Fry Cook Operator Goals Kettle Fry Cook Operator Goals Patient will improve cognitive-communication necessary for safety and daily living tasks with minimal assist. GAVINO LIVINGSTON OTR March 06, 2020 08:09
--- NOTE | 2020-03-06 08:17 | Therapy Team Discharge Summary ---
Therapy Discharge Summary Discharge Recommendations Date of Discharge 03/06/2020 Therapy D/C Recommendations: Physical Therapy Home Care Physical Therapy This patient admitted to ARU post acute hospital stay due to a hip fracture. 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 Upon admission to this unit, she was max assist iw bed mobiltiy and transfers. She was able to ambulate 8-15 ft with min assist in the // bars. She did not attempt stairs and does not perform them typically. Treatment has focused on functional strength, balance, activity tolerance to progress her transfers and gait. She has made excellent progress and is meeting goals. She is mod indep with bed mobility, transfers and gait. She is to discharge home and recommend [facility] PT to follow. DC this date. Occupational Therapy Decreased Activ Tolerance PT Wheel Fitter Goals Wheel Fitter Goals PT Correction Goals Time Frame: March 11, 2020 Roll Left to Right (QC): 6 (met 03/05/20) Sit to Lying (QC): 6 (met 03/05/20) Lying-Sitting on Side/Bed(QC): 6 (met 03/05/20) Sit to Stand (QC): 6 (met 03/05/20) Chair/Bxt-gd-Jqxcx Xfer(QC): 6 (met 03/05/20) Car Transfer (QC): 4 (met 03/05/20) Does the Patient Walk: Yes Walk 10 feet (QC): 6 (met 03/05/20) Walk 10ft-Uneven Surface(QC): 4 (met 03/05/20) Walk 50ft with 2 Turns (QC): 6 (met 03/05/20) Walk 150 ft (QC): 6 (met 03/05/20) Wheel 50 feet with 2 turns (QC: 9 (03/05/20) 1 Step (curb) (QC): 9 (03/05/20) 4 Steps (QC): 9 (03/05/20) 12 Steps (QC): 9 (03/05/20) Picking up an Object (QC): 88 (store management trainee 03/05/20) [place] met OT Correction Goals Wheel Fitter Goals Time Frame: March 11, 2020 Eating (QC): 6 Oral Hygiene (QC): 6 Shower/Bathe Self (QC): 6 Upper Body Dressing (QC): 6 Lower Body Dressing (QC): 6 On/Off Footwear (QC): 6 Toileting Hygiene (QC): 6 Toilet/Commode Transfer (QC): 6 (met 03/05/20) Additional Goals: 1-Demonstrate ADL Tasks, 2-Verbalize Understanding, 3-ImproveStrength/Ramon 1=Demonstrate adherence to instructed precautions during ADL tasks. 2=Patient will verbalize/demonstrate understanding of assistive devices/modifications for ADL. 3=Patient will improve strength/tolerance for activity to enable patient to perform ADL's. Speech Wheel Fitter Goals Correction Goals Patient will improve cognitive-communication necessary for safety and daily living tasks with minimal assist. SUNNY GABRIEL PT March 06, 2020 08:17
--- NOTE | 2020-03-06 09:36 | Cardiology Progress Note ---
Subjective Date Seen by Provider: March 06, 2020 Time Seen by Provider: 09:00 Subjective/Events-last exam Patient is sitting up in chair, no new complaints. Being discharged home today. Objective-Cardiology Exam Last Set of Vital Signs Vital Signs 03/06/20 03/06/20 03/06/20 05:59 07:15 08:00 Temp 36.9 Pulse 66 Resp 20 B/P (MAP) 136/69 (91) Pulse Ox 97 O2 Delivery Room Air Capillary Refill : Less Than 3 SecondsLess Than 3 Seconds I&O Intake and Output 03/06/20 00:00 Intake Total 1550 ml Balance 1550 ml Intake Oral 1550 ml # Voids 10 General: Alert, Oriented X3, Cooperative HEENT: Atraumatic, PERRLA Neck: Supple, No JVD, No Thyromegaly Lungs: Clear to Auscultation, Normal Air Movement Heart: Regular Rate, Normal S1, Normal S2, No Murmurs Abdomen: Normal Bowel Sounds, Soft, No Tenderness Extremities: No Clubbing, No Cyanosis, No Edema Skin: No Rashes, No Significant Lesion Neuro: Normal Speech, Cranial Nerves 3-12 NL Psych/Mental Status: Mental Status NL, Mood NL A/P-Cardiology Admission Diagnosis Right hip fx Dyspnea Palpitations Tobaccoism Assessment/Plan Right hip fracture, s/p repair on 02/24/2020, continue with PT/OT Dyspnea, reports chronic dyspnea for past several years, probable underlying COPD. 2D Echo done 02/26/2020 revealed grade I diastolic dysfunction, EF 55-60%, PA 25mmHg. Palpitations, occurring infrequently, continue to monitor. Tobaccoism, educated on the importance of smoking cessation. Parkinson, management per PCP. UTI- resolved OK for discharge from cardiology standpoint. Follow up with Dr. Cast's office in 4 weeks. Clinical Quality Measures DVT/VTE Risk/Contraindication: Risk Factor Score Per Nursin RFS Level Per Nursing on Admit: 4+=Very High KIN CEJA March 06, 2020 09:36
--- NOTE | 2020-03-06 09:46 | NUR ---
CM/SS DISCHARGE HHC: Finalized with [facility], faxed discharge orders/instructions, fax confirmation received. Patient ride coming at 1030, she is dressed and ready to leave. Unit RN aware of all arrangements.
--- NOTE | 2020-03-06 10:18 | Discharge Summary ---
Diagnosis/Chief Complaint Date of Admission Feb 26, 2020 at 12:10 Date of Discharge Discharge Date: March 06, 2020 Discharge Diagnosis Assessment: s/p right hip fracture with uncomplicated repair by Dr Irizarry UTI PD Smoker Falls Wheezing now resolved and confirms dx of COPD s/p steroid management Constipation Plan: Lovenox Fall risk IRF protocol Home meds Cardiology evaluation Nebs O2 ICS Steroids Fleets prn DC tomorrow (1) Pathological fracture of right femur due to osteoporosis (2) Fracture of hip, right, closed Status: Acute (3) UTI (urinary tract infection) (4) Parkinson disease (5) Smoker (6) Wheezing (7) Congestion of upper respiratory tract (8) Constipation (9) Fall Status: Acute Discharge Summary Discharge Physical Examination Allergies: Coded Allergies: monosodium glutamate (Verified Allergy, Unknown, blurry vision , 02/23/20) Vitals & I&Os Vital Signs Date Time Temp Pulse Resp B/P (MAP) Pulse Ox O2 Delivery O2 Flow Rate FiO2 03/06/20 10:35 03/06/20 08:00 Room Air 03/06/20 07:15 97 03/06/20 05:59 36.9 66 20 General Appearance: Alert, Oriented X3, Cooperative Respiratory: Clear to Auscultation Cardiovascular: Regular Rate Neuro: Normal Gait, Normal Speech, Strength at 5/5 X4 Ext Psych/Mental Status: Mental Status NL Hospital Course Was the Problem List Reviewed?: Yes Hospital Course: Pt had an uneventful 9 day hospital course in inpatient rehab after suffering a right hip fracture from a fall from complications from Parkinsons. COPD was diagnosed and she was given steroids which cleared up the wheezing, SOB, and cough. She will remain on Singulair and Advair. Smoking cessation counseled. Overall she improved, labs remained stable, bowel function returned back to normal, pain medication was taken on a rare basis, and it felt like she could go. We will have home health PT and OT and RN to remove the manuel and will have close follow up with PCP Dr. Chisholm. Labs (last 24 hrs) Laboratory Tests 02/27/20 04:56: White Blood Count 10.2, Red Blood Count 3.72L, Hemoglobin 10.2L, Hematocrit 32L, Mean Corpuscular Volume 86, Mean Corpuscular Hemoglobin 27, Mean Corpuscular Hemoglobin Concent 32, Red Cell Distribution Width 13.5, Platelet Count 216, Mean Platelet Volume 10.4, Neutrophils (%) (Auto) 51, Lymphocytes (%) (Auto) 33, Monocytes (%) (Auto) 12, Eosinophils (%) (Auto) 4, Basophils (%) (Auto) 0, Neutrophils # (Auto) 5.2, Lymphocytes # (Auto) 3.4, Monocytes # (Auto) 1.2H, Eosinophils # (Auto) 0.4H, Basophils # (Auto) 0.0, Sodium Level 139, Potassium Level 3.8, Chloride Level 104, Carbon Dioxide Level 24, Anion Gap 11, Blood Urea Nitrogen 10, Creatinine 0.63, Estimat Glomerular Filtration Rate > 60, BUN/Creatinine Ratio 16, Glucose Level 121H, Calcium Level 8.8, Corrected Calcium 9.2, Total Bilirubin 0.8, Aspartate Amino Transf (AST/SGOT) 59H, Alanine Aminotransferase (ALT/SGPT) 63H, Alkaline Phosphatase 110, Total Protein 6.1L, Albumin 3.5 03/04/20 05:05: White Blood Count 12.4H, Red Blood Count 3.64L, Hemoglobin 10.2L, Hematocrit 32L , Mean Corpuscular Volume 89, Mean Corpuscular Hemoglobin 28, Mean Corpuscular Hemoglobin Concent 32, Red Cell Distribution Width 14.1, Platelet Count 408H, Mean Platelet Volume 9.8, Neutrophils (%) (Auto) 45, Lymphocytes (%) (Auto) 45H, Monocytes (%) (Auto) 8, Eosinophils (%) (Auto) 3, Basophils (%) (Auto) 0, Neutrophils # (Auto) 5.5, Lymphocytes # (Auto) 5.5H, Monocytes # (Auto) 1.0, Eosinophils # (Auto) 0.3, Basophils # (Auto) 0.0, Sodium Level 141, Potassium Level 4.6, Chloride Level 105, Carbon Dioxide Level 25, Anion Gap 11, Blood Urea Nitrogen 14, Creatinine 0.74, Estimat Glomerular Filtration Rate > 60, BUN/Creatinine Ratio 19, Glucose Level 98, Calcium Level 8.9, Corrected Calcium 9.2, Total Bilirubin 0.4, Aspartate Amino Transf (AST/SGOT) 25, Alanine Aminotransferase (ALT/SGPT) 14, Alkaline Phosphatase 110, Total Protein 6.2L, Albumin 3.6 Pending Labs Laboratory Tests 02/27/20 04:56: White Blood Count 10.2, Red Blood Count 3.72, Hemoglobin 10.2, Hematocrit 32, Mean Corpuscular Volume 86, Mean Corpuscular Hemoglobin 27, Mean Corpuscular Hemoglobin Concent 32, Red Cell Distribution Width 13.5, Platelet Count 216, Mean Platelet Volume 10.4, Neutrophils (%) (Auto) 51, Lymphocytes (%) (Auto) 33, Monocytes (%) (Auto) 12, Eosinophils (%) (Auto) 4, Basophils (%) (Auto) 0, Neutrophils # (Auto) 5.2, Lymphocytes # (Auto) 3.4, Monocytes # (Auto) 1.2, Eosinophils # (Auto) 0.4, Basophils # (Auto) 0.0, Sodium Level 139, Potassium Level 3.8, Chloride Level 104, Carbon Dioxide Level 24, Anion Gap 11, Blood Urea Nitrogen 10, Creatinine 0.63, Estimat Glomerular Filtration Rate > 60, BUN/Creatinine Ratio 16, Glucose Level 121, Calcium Level 8.8, Corrected Calcium 9.2, Total Bilirubin 0.8, Aspartate Amino Transf (AST/SGOT) 59, Alanine Aminotransferase (ALT/SGPT) 63, Alkaline Phosphatase 110, Total Protein 6.1, Albumin 3.5 03/04/20 05:05: White Blood Count 12.4, Red Blood Count 3.64, Hemoglobin 10.2, Hematocrit 32, Mean Corpuscular Volume 89, Mean Corpuscular Hemoglobin 28, Mean Corpuscular Hemoglobin Concent 32, Red Cell Distribution Width 14.1, Platelet Count 408, Mean Platelet Volume 9.8, Neutrophils (%) (Auto) 45, Lymphocytes (%) (Auto) 45, Monocytes (%) (Auto) 8, Eosinophils (%) (Auto) 3, Basophils (%) (Auto) 0, Neutrophils # (Auto) 5.5, Lymphocytes # (Auto) 5.5, Monocytes # (Auto) 1.0, Eosinophils # (Auto) 0.3, Basophils # (Auto) 0.0, Sodium Level 141, Potassium Level 4.6, Chloride Level 105, Carbon Dioxide Level 25, Anion Gap 11, Blood Urea Nitrogen 14, Creatinine 0.74, Estimat Glomerular Filtration Rate > 60, BUN/Creatinine Ratio 19, Glucose Level 98, Calcium Level 8.9, Corrected Calcium 9.2, Total Bilirubin 0.4, Aspartate Amino Transf (AST/SGOT) 25, Alanine Aminotransferase (ALT/SGPT) 14, Alkaline Phosphatase 110, Total Protein 6.2, Albumin 3.6 Discharge Home Medications: Active Scripts Active Thera-M Tablet (Multivits,Ca,Minerals/Iron/FA) 1 Each Tablet 1 Ea PO DAILY@0700 Senna-Time S Tablet (Sennosides/Docusate Sodium) 1 Each Tablet 1 Ea PO BID Montelukast Sodium 10 Mg Tablet 10 Mg PO HS Advair Hfa 115-21 Mcg Inhaler (Fluticasone/Salmeterol) 12 Gm Hfa.aer.ad 0 Puff IH RTBID Temazepam 15 Mg Capsule 15 Mg PO HS PRN Gabapentin 100 Mg Capsule 100 Mg PO HS HYDROcodone/APAP 7.5/325 TAB (Acetaminophen/Hydrocodone Bitart) 1 Ea Tablet 1 Ea PO Q2HR PRN Reported Claritin (Loratadine) 10 Mg Tablet 10 Mg PO DAILY PRN Aspirin EC (Aspirin) 325 Mg Tablet.dr 325 Mg PO DAILY PRN Carbidopa-Levodopa 25-100 Tab (Carbidopa/Levodopa) 1 Each Tablet 1 Ea PO QID Instructions to patient/family Please see electronic discharge instructions given to patient. Diagnosis/Problems Diagnosis/Problems (1) Pathological fracture of right femur due to osteoporosis Qualifiers: Qualified Codes: M80.051D - Age-related osteoporosis with current pathological fracture, right femur, subsequent encounter for fracture with routine healing (2) Fracture of hip, right, closed Status: Acute (3) UTI (urinary tract infection) (4) Parkinson disease (5) Smoker (6) Wheezing (7) Congestion of upper respiratory tract (8) Constipation (9) Fall Status: Acute Clinical Quality Measures DVT/VTE Risk/Contraindication: Risk Factor Score Per Nursin RFS Level Per Nursing on Admit: 4+=Very High SHAYAN LI DO March 06, 2020 10:18
--- NOTE | 2020-03-06 10:43 | Therapy Team Discharge Summary ---
Therapy Discharge Summary Discharge Recommendations Date of Discharge Therapy D/C Recommendations: Physical Therapy Home Care Occupational Therapy Decreased Activ Tolerance Speech-Language Pathology Patient was admitted to the ARU s/p hip fracture/surgery. Patient initially had mild cognitive deficits post surgery. Patient received skilled ST services related to her cognitive deficits in order to return home safely. Patient met ST goals. Patient is discharging to her home today and will be discharged from skilled therapy as well. PT Snf Goals Progressive Care Nurse Goals PT Progressive Care Nurse Goals Time Frame: March 11, 2020 Roll Left to Right (QC): 6 (met 03/05/20) Sit to Lying (QC): 6 (met 03/05/20) Lying-Sitting on Side/Bed(QC): 6 (met 03/05/20) Sit to Stand (QC): 6 (met 03/05/20) Chair/Fxg-fn-Xvxzo Xfer(QC): 6 (met 03/05/20) Car Transfer (QC): 4 (met 03/05/20) Does the Patient Walk: Yes Walk 10 feet (QC): 6 (met 03/05/20) Walk 10ft-Uneven Surface(QC): 4 (met 03/05/20) Walk 50ft with 2 Turns (QC): 6 (met 03/05/20) Walk 150 ft (QC): 6 (met 03/05/20) Wheel 50 feet with 2 turns (QC: 9 (03/05/20) 1 Step (curb) (QC): 9 (03/05/20) 4 Steps (QC): 9 (03/05/20) 12 Steps (QC): 9 (03/05/20) Picking up an Object (QC): 88 (plastics plater 03/05/20) OT Progressive Care Nurse Goals Progressive Care Nurse Goals Time Frame: March 11, 2020 Eating (QC): 6 Oral Hygiene (QC): 6 Shower/Bathe Self (QC): 6 Upper Body Dressing (QC): 6 Lower Body Dressing (QC): 6 On/Off Footwear (QC): 6 Toileting Hygiene (QC): 6 Toilet/Commode Transfer (QC): 6 (met 03/05/20) Additional Goals: 1-Demonstrate ADL Tasks, 2-Verbalize Understanding, 3-Impr oveStrength/Ramon 1=Demonstrate adherence to instructed precautions during ADL tasks. 2=Patient will verbalize/demonstrate understanding of assistive devices/modifications for ADL. 3=Patient will improve strength/tolerance for activity to enable patient to perform ADL's. Speech Progressive Care Nurse Goals Snf Goals Patient will improve cognitive-communication necessary for safety and daily living tasks with minimal assist. ANTONIA SAMPSON March 06, 2020 10:43
== END 2020-03-06 10:35 | disposition home health service (06) | DRG 560 ==
PROVIDERS: ADMIT Internal Medicine; ATTEND Internal Medicine
DX: M80.051D Age-related osteoporosis with current pathological fracture, right femur, subsequent encounter for fracture with routine healing (principal); N39.0 Urinary tract infection, site not specified; J44.1 Chronic obstructive pulmonary disease with (acute) exacerbation; G20 Parkinson's disease; F17.210 Nicotine dependence, cigarettes, uncomplicated; M54.16 Radiculopathy, lumbar region; Z91.81 History of falling; K59.00 Constipation, unspecified; R00.2 Palpitations; F41.9 Anxiety disorder, unspecified; F32.9 Major depressive disorder, single episode, unspecified; B96.20 Unspecified Escherichia coli [E. coli] as the cause of diseases classified elsewhere; Z90.710 Acquired absence of both cervix and uterus; W19.XXXA Unspecified fall, initial encounter; Y92.129 Unspecified place in nursing home as the place of occurrence of the external cause; Y99.0 Civilian activity done for income or pay
CPT/HCPCS: 36415; 80053; 85025; 93306; 94640; 94760

== ENCOUNTER → 2020-03-08 | Outpatient (CLI) | payer MEDICARE, OTHER ==
[~2020-03-08] MED LIST changes: +ASPI325T32 PO; +CEPH250C PO; +FLUT12AE4 IH; +GABA-486 PO; +HYDR-34 PO; +LORA10TA76 PO; +MONT10TA26 PO; +MULT1TAB63 PO; +SENN-20 PO; +TEMA15CA PO
[2020-03-08 19:24] LABS: CLARITY,URINE SL CLOUDY; COLOR,URINE DARK YELLOW
[2020-03-08 19:25] LABS: BACTERIA,URINE LARGE /HPF; BILIRUBIN,URINE NEGATIVE (NEGATIVE); GLUCOSE, URINE (UA) NEGATIVE (NEGATIVE); KETONES,URINE NEGATIVE (NEGATIVE); LEUKOCYTE ESTERASE ,URINE TRACE (NEGATIVE); NITRITE,URINE NEGATIVE (NEGATIVE); PROTEIN,URINE NEGATIVE (NEGATIVE); RBC,URINE 0-2 /HPF; WBC,URINE 25-50 /HPF
== END ==
LOC: LAB FS 17:13
PROVIDERS: ATTEND Family Medicine
DX: N39.0 Urinary tract infection, site not specified (principal)
CPT/HCPCS: 81000; 87077; 87088; 87186

== ENCOUNTER → 2020-04-11 | Outpatient (CLI) | payer MEDICARE, OTHER ==
--- NOTE | 2020-04-11 16:04 | Diagnostic Imaging Report ---
INDICATION: Right hip pain. Previous hip replacement. COMPARISON: 02/24/2020. FINDINGS: Two radiographic views of the right hip were obtained. There are expected postsurgical changes of previous right hip hemiarthroplasty. There is appropriate anatomic alignment of the femoral component in relation to the acetabulum. The stem of the femoral component is located centrally in the medullary cavity. There is no periprosthetic fracture. No acute fracture or dislocation is identified. No unexpected radiopaque foreign bodies identified. IMPRESSION: Expected postsurgical changes of previous right hip hemiarthroplasty. No evidence of periprosthetic fracture or loosening. Dictated by: Dictated on workstation # [id number]
== END ==
LOC: RAD FS 15:27
PROVIDERS: ATTEND Nurse Practitioner
DX: M25.551 Pain in right hip (principal); Z96.641 Presence of right artificial hip joint
CPT/HCPCS: 73502

== ENCOUNTER 2021-05-16 09:52 | Emergency (ER) | payer MEDICARE, OTHER ==
[~2021-05-16] VITALS: Ht 170.2 cm; Wt 96.7 kg
[~2021-05-16 09:52] MED LIST changes: -MONT10TA26 PO; +MONT10TA32 PO
--- NOTE | 2021-05-16 10:13 | ED General ---
General Chief Complaint: Eye Problems Stated Complaint: LT EYE INJ Nursing Triage Note: Patient reports she fell out of bed this morning and hit her left eye and the left side of her face. 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 She denies any new difficulty with her vision, states she went to walk-in care and was referred to the ED. Source of Information: Patient, Family (daughter) History of Present Illness Date Seen by Provider: May 16, 2021 Time Seen by Provider: 09:53 Initial Comments 70-year-old female presenting with bruising to her left eye and periorbital area. She reports that she had woken up when she rolled out of bed this [place] gonz[place]. She had this happen around 5 AM. She denies any change in her vision or double vision. She does have a retinal hemorrhage on the right eye that she was following with an eye doctor that came down to Dr. Goss's office. Since [facility] last spring she has not followed up with anyone. She has no change in her vision today. She had noticed bruising to the surface of the eye on the left and so she had gone to urgent care to be evaluated. They told her she needed to be seen in the emergency department for a CT scan to check for bleeding in her brain. She denies any nausea, vomiting, change in vision, change in her walking. She does have Parkinson's and has had more frequent falls recently. She has been having pressure in her ears and was on antibiotics with Dr. Villasenor for 2 rounds of medication. She also has been having a cough and mucus with left rib and chest pain at times. She has no bruising in the area but felt that she had probably bruised or cracked a rib removed for multiple falls. She has not followed back up with Dr. Asher the neurology doctor that manages her [facility] r[facility]. She sees Dr. Asher in [place] but has not been to see them since having more issues with falling and ambulation. she reports taking the 2 pills of Carbidopa/Levodopa at night "knocks her out" and she sleeps heavily. She thinks this has contributed to her falling out of bed this am at 5 am and the more frequent falls in last month or more. Timing/Duration: 4-6 Hours Severity: Mild Associated Systoms: Chest Pain (left sided occasionally with deep cough), Cough (occasional with increased congestion and mucus recently); No Diaphoresis, No Fever/Chills, No Headaches, No Loss of Appetite, No Malaise, No Nausea/Vomiting, No Rash, No Seizure, No Shortness of Air, No Syncope, No Weakness; Other (pressure in her ears) Allergies and Home Medications Allergies Coded Allergies: monosodium glutamate (Verified Allergy, Unknown, blurry vision , 02/23/20) Home Medications Aspirin 325 Mg Tablet.dr, 325 MG PO DAILY PRN for PAIN-MILD (1-4), (Reported) Azithromycin 500 Mg Tablet, 500 MG PO DAILY Prescribed by: JANELL WAGNER on 05/16/21 1159 Carbidopa/Levodopa 1 Each Tablet, 1 EA PO QID, (Reported) Fluticasone/Salmeterol 12 Gm Hfa.aer.ad, 0 PUFF IH RTBID Prescribed by: SHAYAN LI on 03/05/201854 Gabapentin 100 Mg Capsule, 100 MG PO HS Prescribed by: SHAYAN LI on 03/05/201854 Hydrocodone Bit/Acetaminophen 1 Ea Tablet, 1 EA PO Q2HR PRN for PAIN-MODERATE (5-7) Prescribed by: SHAYAN LI on 03/05/201855 Loratadine 10 Mg Tablet, 10 MG PO DAILY PRN for ALLERGY SYMPTOMS, (Reported) Montelukast Sodium 10 Mg Tablet, 10 MG PO HS Prescribed by: SHAYAN LI on 03/05/201854 Multivits,Ca,Minerals/Iron/FA 1 Each Tablet, 1 EA PO DAILY@0700 Prescribed by: SHAYAN LI on 03/05/201854 Sennosides/Docusate Sodium 1 Each Tablet, 1 EA PO BID Prescribed by: SHAYAN LI on 03/05/201854 Temazepam 15 Mg Capsule, 15 MG PO HS PRN for INSOMNIA Prescribed by: SHAYAN LI on 03/05/201855 Patient Home Medication List Home Medication List Reviewed: Yes Review of Systems Review of Systems Constitutional: No chills, No fever EENTM: ear pain (pressure), other (bruising around left eye and to surface of left eye since falling out of bed this am); No ear discharge, No blurred vision, No double vision, No eye pain, No tearing, No vision loss Respiratory: see HPI Cardiovascular: see HPI Gastrointestinal: no symptoms reported Genitourinary: no symptoms reported Musculoskeletal: muscle stiffness (due to her Parkinsons) Skin: change in color (bruising around left eye) Psychiatric/Neurological: Tremors (from Parkinsons) Past Zvpuuuh-Qxouzv-Xpuune Hx Seasonal Allergies Seasonal Allergies: No Past Medical History Surgeries: Yes Section, Hysterectomy, Orthopedic Respiratory: No Currently Using CPAP: No Currently Using BIPAP: No Cardiac: No Neurological: Yes Parkinson's Disease Sexually Transmitted Disease: No HIV/AIDS: No Genitourinary: No Gastrointestinal: No Musculoskeletal: No Endocrine: No HEENT: No Cancer: No Psychosocial: No Integumentary: No Blood Disorders: No Adverse Reaction/Blood Tranf: No Family Medical History Diabetes mellitus 19 FATHER 19 MOTHER Myocardial infarction G8 BROTHER Physical Exam Vital Signs Vital Signs - First Documented 05/16/21 10:02 Temp 36.4 Pulse 77 Resp 16 B/P (MAP) 160/66 (97) Pulse Ox 93 O2 Delivery Room Air Capillary Refill : Less Than 3 Seconds Height, Weight, BMI Height: '" Weight: lbs. oz. kg; 33.00 BMI Method: General Appearance: No Apparent Distress, WD/WN HEENT: PERRL/EOMI; No TM Abnormal (L) (dull), No TM Abnormal (R) (dull); Other (no CSF otorrhea or rhinorrhea. No hemotympanum. no tenderness to palpation left periorbital area. 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 Norm as Tested Skin: Warm/Dry, Ecchymosis (left periorbital area) Progress/Results/Core Measures Suspected Sepsis SIRS Temperature: Pulse: 77 Respiratory Rate: 16 Blood Pressure 160 /66 Mean: 97 Results/Orders My Orders Orders - JANELL WAGNER MD Ct Head/Face/Cervical Wo (05/16/21 10:11) Ct Chest Wo (05/16/21 10:11) Vital Signs/I&O 05/16/21 05/16/21 10:02 12:10 Temp 36.4 Pulse 77 71 Resp 16 16 B/P (MAP) 160/66 (97) 160/65 Pulse Ox 93 94 O2 Delivery Room Air Room Air Capillary Refill : Less Than 3 Seconds Blood Pressure Mean: 97 Progress Note #1: Progress Note As patient has concerns about potential bleeding associated with her head injury and facial injury will obtain imaging to evaluate this. She also states that she occasionally has neck pain. She is having some pain in the left side of her chest so will obtain CT scan to evaluate for rib fractures and abnormalities associated with this. Differential diagnosis includes Parkinson's causing frequent falls, chest wall contusion, rib contusion, rib fracture, pneumonia, sinusitis, orbital fracture, intracranial hemorrhage Progress Note #2: Progress Note Imaging does not demonstrate any acute fracture or hemorrhage associated with her face head or neck. She does have mucus plugging or near obstruction of her bronchus on the left lower lobe. She had no rib fracture or pneumothorax. Counseled to take Mucinex and a course of antibiotics. Check back with her primary and if not improved after 1 to 2 weeks and she may also need a bronchoscopy. Also advised to check with her Parkinson's doctor about her recurrent falls that have become increased recently Diagnostic Imaging Diagonstic Imaging: CT Plain Films/CT/US/NM/MRI: chest Comments NAME: JOSEPH HANNA [facility] REC#: [id number] PT STATUS: REG ER : 1950 PHYSICIAN: JANELL WAGNER MD ADMIT DATE: 05/16/21/ER FS Draft Date of Exam:05/16/21 CT CHEST WO PROCEDURE: CT chest without contrast. TECHNIQUE: Multiple contiguous axial images were obtained through the chest without the use of intravenous contrast. Auto Exposure Controls were utilized during the CT exam to meet ALARA standards for radiation dose reduction. INDICATION: 70-year-old female, frequent recent falls, left-sided chest wall pain. CORRELATION: None FINDINGS: Heart size is enlarged. Prominent coronary artery calcification particularly in the LAD. No pericardial effusion. Significant motion artifact, however the thoracic aortic contour appears generally unremarkable. Mild wall calcification. No pathologic enlarged mediastinal lymph nodes. A few calcified hilar granulomas are present. There is near endobronchial occlusion of the left lower lobe with associated consolidation distally. No significant pleural effusion. The visualized portions of the upper abdomen are unremarkable. The visualized osseous structures demonstrate no acute findings. In particular, no displaced left-sided rib fracture. IMPRESSION: Left lower lobe endobronchial occlusion. May simply represent secretions with postobstructive consolidation. Endobronchial mass is not excluded. Followup evaluation including potential need for bronchoscopy. Dictated on workstation # [id number] Dict: 05/16/21 1044 Trans: 05/16/21 1052 CV [id number] Interpreted by: ROSAMARIA QURESHI DO Electronically signed by: Wilmer Imaging: CT Plain Films/CT/US/NM/MRI: facial bones, c-spine, head Comments NAME: JOSEPH HANNA [facility] REC#: [id number] PT STATUS: REG ER : 1950 PHYSICIAN: JANELL WAGNER MD ADMIT DATE: 05/16/21/ER FS Draft Date of Exam:05/16/21 CT HEAD/FACE/CERVICAL WO PROCEDURE: CT head, face, and cervical spine without contrast. TECHNIQUE: Multiple contiguous axial images were obtained through the head, neck, and facial bones without the use of intravenous contrast. Sagittal and coronal reformations through the cervical spine and facial bones were also performed. Auto Exposure Controls were utilized during the CT exam to meet ALARA standards for radiation dose reduction. INDICATION: Left eye bruising after fall. COMPARISON: None available. FINDINGS: Head: No intracranial hyperdense hemorrhage or space-occupying mass. No hydrocephalus or midline shift. See-white matter differentiation is well-preserved. Age-appropriate global atrophy. Mild periventricular white matter hypoattenuation. No skull fracture. Patchy mucosal thickening within the ethmoid and sphenoid sinuses. Face: No fracture of the nasal bone, osseous nasal septum or anterior nasal spine. No fracture of the orbits. The zygomatic arches and maxillary sinus friedman are intact. Small mucosal retention cysts in the left maxillary sinus. No fracture in the pterygoid plates. The temporomandibular joints are normal alignment. No mandibular fracture. Cervical spine: No acute fracture or traumatic malalignment in the cervical spine. 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 This usually results in kyphotic curvature centered at this level. No high-grade spinal stenosis. No cervical lymphadenopathy. Lung apices are clear. IMPRESSION: 1. No acute intracranial hemorrhage or skull fracture. 2. No fracture in the mid face or mandible. 3. No acute fracture or traumatic malalignment in the cervical spine. Dictated on workstation # [id number] Dict: 05/16/21 1056 Trans: 05/16/21 1129 [facility] [id number] Interpreted by: ANDREEA RAMIREZ MD Electronically signed by: Departure Impression Primary Impression: Traumatic subconjunctival hemorrhage of left eye Additional Impressions: Periorbital ecchymosis of left eye Qualified Codes: S00.12XA - Contusion of left eyelid and periocular area, initial encounter Contusion of face Qualified Codes: S00.83XA - Contusion of other part of head, initial encounter Fall from bed, initial encounter Frequent falls Bronchial obstruction Disposition: 01 HOME, SELF-CARE Condition: Stable Departure-Patient Inst. Decision time for Depature: 11:59 Referrals: ALEX VILLASENOR MD (PCP/Family) Primary Care Physician Patient Instructions: [facility] ED, Cough, Adult ED, Minor Head Injury, Adult ED, Subconjunctival Hemorrhage Add. Discharge Instructions: Ice and head elevation to help with left eye bruising and face bruising. Check with eye doctor for your retinal hemorrhage/bleeding of the right eye and to monitor healing of the bruise to left eye. Take antibiotic and mucinex to help with cough and mucus in left lower lung area. You will need to recheck with the clinic and ensure this is clearing up. If the mucus and congestion in the left lower lung and bronchus is not clearing up with treatment over the next week or two then you may also need to have a pulmonary doctor do a bronchoscopy (scope to look at the bronchus directly) All discharge instructions reviewed with patient and/or family. Voiced understanding. Scripts Azithromycin (Azithromycin) 500 Mg Tablet 500 MG PO DAILY for 5 Days, #5 TAB 0 Refills Prov: JANELL WAGNER MD 05/16/21 Images Head/Face 1 - Ecchymosis (Subconjunctival hemorrhage in the lower half of her left eye) 2 - Ecchymosis (Mild bruising to the left lower periorbital area without tenderness. Normal extraocular movements) JANELL WAGNER MD May 16, 2021 10:13
--- NOTE | 2021-05-16 10:52 | Diagnostic Imaging Report ---
PROCEDURE: CT chest without contrast. TECHNIQUE: Multiple contiguous axial images were obtained through the chest without the use of intravenous contrast. Auto Exposure Controls were utilized during the CT exam to meet ALARA standards for radiation dose reduction. INDICATION: 70-year-old female, frequent recent falls, left-sided chest wall pain. CORRELATION: None FINDINGS: Heart size is enlarged. Prominent coronary artery calcification particularly in the LAD. No pericardial effusion. Significant motion artifact, however the thoracic aortic contour appears generally unremarkable. Mild wall calcification. No pathologic enlarged mediastinal lymph nodes. A few calcified hilar granulomas are present. There is near endobronchial occlusion of the left lower lobe with associated consolidation distally. No significant pleural effusion. The visualized portions of the upper abdomen are unremarkable. The visualized osseous structures demonstrate no acute findings. In particular, no displaced left-sided rib fracture. IMPRESSION: Left lower lobe endobronchial occlusion. May simply represent secretions with postobstructive consolidation. Endobronchial mass is not excluded. Followup evaluation including potential need for bronchoscopy. Dictated by: Dictated on workstation # [id number]
--- NOTE | 2021-05-16 11:30 | Diagnostic Imaging Report ---
PROCEDURE: CT head, face, and cervical spine without contrast. TECHNIQUE: Multiple contiguous axial images were obtained through the head, neck, and facial bones without the use of intravenous contrast. Sagittal and coronal reformations through the cervical spine and facial bones were also performed. Auto Exposure Controls were utilized during the CT exam to meet ALARA standards for radiation dose reduction. INDICATION: Left eye bruising after fall. COMPARISON: None available. FINDINGS: Head: No intracranial hyperdense hemorrhage or space-occupying mass. No hydrocephalus or midline shift. See-white matter differentiation is well-preserved. Age-appropriate global atrophy. Mild periventricular white matter hypoattenuation. No skull fracture. Patchy mucosal thickening within the ethmoid and sphenoid sinuses. Face: No fracture of the nasal bone, osseous nasal septum or anterior nasal spine. No fracture of the orbits. The zygomatic arches and maxillary sinus friedman are intact. Small mucosal retention cysts in the left maxillary sinus. No fracture in the pterygoid plates. The temporomandibular joints are normal alignment. No mandibular fracture. Cervical spine: No acute fracture or traumatic malalignment in the cervical spine. 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 This usually results in kyphotic curvature centered at this level. No high-grade spinal stenosis. No cervical lymphadenopathy. Lung apices are clear. IMPRESSION: 1. No acute intracranial hemorrhage or skull fracture. 2. No fracture in the mid face or mandible. 3. No acute fracture or traumatic malalignment in the cervical spine. Dictated by: Dictated on workstation # [id number]
[2021-05-16] MEDS ORDERED: AZIT500T9 PO (11:59)
[2021-05-16 12:10] VITALS: BP 160/65
== END 2021-05-16 12:10 | disposition home or self-care (01) ==
LOC: EDUNIT# 09:52 → ER FS 09:53
DX: S05.12XA Contusion of eyeball and orbital tissues, left eye, initial encounter (principal); H11.32 Conjunctival hemorrhage, left eye; J98.09 Other diseases of bronchus, not elsewhere classified; R29.6 Repeated falls; G20 Parkinson's disease; Z79.82 Long term (current) use of aspirin; W06.XXXA Fall from bed, initial encounter
CPT/HCPCS: 70450; 70486; 71250; 72125

== ENCOUNTER 2023-07-06 09:46 | Emergency (ER) | payer MEDICARE, OTHER ==
[~2023-07-06] VITALS: Ht 170 cm; Wt 91.0 kg
[~2023-07-06 09:46] MED LIST changes: +AZIT500T9 PO; -CARB1TAB19 PO; +CARB1TAB32 PO; +MONT-40 PO; -MONT10TA32 PO
[2023-07-06] MEDS ORDERED: NS IV 1000 ML 1,000 ML IV STA (10:00)
[2023-07-06] MEDS ORDERED: KETOROLAC INJ 15 MG/ML VIAL IVP STA (10:00)
--- NOTE | 2023-07-06 10:07 | ED Back Pain ---
General Chief Complaint: Back Problems Stated Complaint: RT FLANK PAIN Source of Information: Patient History of Present Illness Date Seen by Provider: Jul 06, 2023 Time Seen by Provider: 09:50 Initial Comments 72-year-old female presenting with complaints of severe right flank pain since yesterday afternoon. She states that she has increased pain when she goes to urinate. She denies seeing any blood in her urine. She has chronic constipation along with Parkinson's. She denies having nausea, vomiting, fever, chills, diarrhea, any trauma or injury. She has not tried taking anything for the pain but states that it is an 11 out of 10. She cannot be more specific in describing the pain and just says that it hurts a lot. When asked if it was stabbing or cramping or aching she again could only say that it hurts a lot. Timing/Duration: 1 Day Severity: Severe Pain/Injury Location: Back (Right flank and low back) Method of Injury: Unknown Modifying Factors: Worse With Other (Increased pain with urination) Associated Symptoms: No muscle spasms, No fever, No weakness, No numbness in legs/feet, No tingling in legs/feet, No sensory/motor loss; lower back pain (Lower back pain right side), loss of bladder control (Chronic urinary incontin ence); No loss of bowel control Allergies and Home Medications Allergies Coded Allergies: monosodium glutamate (Verified Allergy, Unknown, blurry vision , 02/23/20) Patient Home Medication List Home Medication List Reviewed: Yes Aspirin (Aspirin EC) 325 Mg Tablet.dr, 325 MG PO DAILY PRN for PAIN-MILD (1-4), (Reported) Entered as Reported by: AZUL CEJA on 02/26/20 1058 Azithromycin (Azithromycin) 500 Mg Tablet, 500 MG PO DAILY Prescribed by: JANELL WAGNER on 05/16/21 1159 Carbidopa/Levodopa (Carbidopa-Levodopa 25-100 Tab) 1 Each Tablet, 1 EA PO QID, (Reported) Entered as Reported by: RADHA ODELL on 02/23/20 1252 Cefdinir (Cefdinir) 300 Mg Capsule, 300 MG PO BID Prescribed by: JANELL WAGNER on 07/06/23 1157 Fluticasone/Salmeterol (Advair Hfa 115-21 Mcg Inhaler) 12 Gm Hfa.aer.ad, 0 PUFF IH RTBID Prescribed by: SHAYAN LI on 03/05/201854 Gabapentin (Gabapentin) 100 Mg Capsule, 100 MG PO HS Prescribed by: SHAYAN LI on 03/05/201854 Hydrocodone Bit/Acetaminophen (HYDROcodone/APAP 7.5/325 TAB) 1 Ea Tablet, 1 EA PO Q2HR PRN for PAIN-MODERATE (5-7) Prescribed by: SHAYAN LI on 03/05/201855 Hyoscyamine Sulfate (Levsin-Sl) 0.125 Mg Tab.subl, 0.125 MG SL Q6H PRN for spasms/flank pain Prescribed by: JANELL WAGNER on 07/06/23 1157 Loratadine (Claritin) 10 Mg Tablet, 10 MG PO DAILY PRN for ALLERGY SYMPTOMS, (Reported) Entered as Reported by: AZUL CEJA on 02/26/20 1058 Montelukast Sodium (Montelukast Sodium) 10 Mg Tablet, 10 MG PO HS Prescribed by: SHAYAN LI on 03/05/201854 Multivits,Ca,Minerals/Iron/FA (Thera-M Tablet) 1 Each Tablet, 1 EA PO DAILY@0700 Prescribed by: SHAYAN IL on 03/05/201854 Sennosides/Docusate Sodium (Senna-Time S Tablet) 1 Each Tablet, 1 EA PO BID Prescribed by: SHAYAN LI on 03/05/201854 Temazepam (Temazepam) 15 Mg Capsule, 15 MG PO HS PRN for INSOMNIA Prescribed by: SHAYAN LI on 03/05/201855 Review of Systems Constitutional: No chills, No fever EENTM: no symptoms reported Respiratory: no symptoms reported Cardiovascular: no symptoms reported Gastrointestinal: see HPI Genitourinary: see HPI Musculoskeletal: see HPI Skin: No change in color, No rash Psychiatric/Neurological: Denies Headache Past Kantssv-Tfdlsc-Hunkbr Hx Seasonal Allergies Seasonal Allergies: No Past Medical History Surgery/Hospitalization HX: Parkinson's, urinary incontinence, chronic constipation Surgeries: Yes Section, Hysterectomy, Orthopedic Respiratory: No Currently Using CPAP: No Currently Using BIPAP: No Cardiac: No Neurological: Yes Parkinson's Disease Sexually Transmitted Disease: No HIV/AIDS: No Genitourinary: No Gastrointestinal: No Musculoskeletal: No Endocrine: No HEENT: No Cancer: No Psychosocial: No Integumentary: No Blood Disorders: No Adverse Reaction/Blood Tranf: No Family Medical History Diabetes mellitus 19 FATHER 19 MOTHER Myocardial infarction G8 BROTHER Physical Exam Vital Signs Vital Signs - First Documented 07/06/23 09:50 Temp 36.4 Pulse 73 Resp 16 B/P (MAP) 113/64 (80) Pulse Ox 97 O2 Delivery Room Air Capillary Refill : Height, Weight, BMI Height: '" Weight: lbs. oz. kg; 33.00 BMI Method: General Appearance: Anxious, Moderate Distress HEENT: PERRL/EOMI, Pharynx Normal Cardiovascular: Regular Rate, Rhythm, Normal Peripheral Pulses Respiratory: Chest Non Tender, Lungs Clear, Normal Breath Sounds Gastrointestinal: Normal Bowel Sounds, No Pulsatile Mass, Soft, Tenderness (Right lower back and flank pain wrapping around to the right lower quadrant) Extremity: Normal Capillary Refill, No Pedal Edema Neurologic/Psychiatric: Alert, Oriented x3 Skin: Normal Color, Warm/Dry Progress/Results/Core Measures Results/Orders Lab Results Laboratory Tests Test 07/06/23 10:05 07/06/23 10:15 Range/Units White Blood Count 8.6 4.3-11.0 10^3/uL Red Blood Count 4.36 3.80-5.11 10^6/uL Hemoglobin 12.4 11.5-16.0 g/dL Hematocrit 38 35-52 % Mean Corpuscular Volume 87 80-99 fL Mean Corpuscular Hemoglobin 28 25-34 pg Mean Corpuscular Hemoglobin Concent 33 32-36 g/dL Red Cell Distribution Width 12.5 10.0-14.5 % Platelet Count 259 130-400 10^3/uL Mean Platelet Volume 9.8 9.0-12.2 fL Immature Granulocyte % (Auto) 0 % Neutrophils (%) (Auto) 55 42-75 % Lymphocytes (%) (Auto) 35 12-44 % Monocytes (%) (Auto) 8 0-12 % Eosinophils (%) (Auto) 2 0-10 % Basophils (%) (Auto) 1 0-10 % Neutrophils # (Auto) 4.7 1.8-7.8 10^3/uL Lymphocytes # (Auto) 3.0 1.0-4.0 10^3/uL Monocytes # (Auto) 0.7 0.0-1.0 10^3/uL Eosinophils # (Auto) 0.2 0.0-0.3 10^3/uL Basophils # (Auto) 0.0 0.0-0.1 10^3/uL Immature Granulocyte # (Auto) 0.0 0.0-0.1 10^3/uL Sodium Level 141 135-145 MMOL/L Potassium Level 4.1 3.6-5.0 MMOL/L Chloride Level 104 98-107 MMOL/L Carbon Dioxide Level 23 21-32 MMOL/L Anion Gap 14 5-14 MMOL/L Blood Urea Nitrogen 11 7-18 MG/DL Creatinine 0.64 0.60-1.30 MG/DL Estimat Glomerular Filtration Rate 94 BUN/Creatinine Ratio 17 Glucose Level 121 H 70-105 MG/DL Calcium Level 9.4 8.5-10.1 MG/DL Corrected Calcium 9.3 8.5-10.1 MG/DL Total Bilirubin 0.3 0.1-1.0 MG/DL Aspartate Amino Transf (AST/SGOT) 9 5-34 U/L Alanine Aminotransferase (ALT/SGPT) < 5 0-55 U/L Alkaline Phosphatase 134 40-136 U/L Total Protein 6.7 6.4-8.2 GM/DL Albumin 4.1 3.2-4.5 GM/DL Lipase 24 8-78 U/L Urine Color DARK YELLOW Urine Clarity CLOUDY Urine pH 6.0 5-9 Urine Specific [place] >=1.030 1.016-1.022 Urine Protein 1+ H NEGATIVE Urine Glucose (UA) NEGATIVE NEGATIVE Urine Ketones TRACE H NEGATIVE Urine Nitrite NEGATIVE NEGATIVE Urine Bilirubin 1+ H NEGATIVE Urine Urobilinogen 1.0 < = 1.0 MG/DL Urine Leukocyte Esterase 2+ H NEGATIVE Urine RBC (Auto) TRACE-L H NEGATIVE Urine RBC 0-2 /HPF Urine WBC TNTC H /HPF Urine Squamous Epithelial Cells 2-5 /HPF Urine Crystals NONE /LPF Urine Bacteria MODERATE H /HPF Urine Casts NONE /LPF Urine Mucus SMALL H /LPF Urine Culture Indicated YES My Orders Orders - JANELL WAGNER MD Ua Culture If Indicated (07/06/23 09:48) Comprehensive Metabolic Panel (07/06/23 10:00) Lipase (07/06/23 10:00) Ed Iv/Invasive Line Start (07/06/23 10:00) Cbc With Automated Diff (07/06/23 10:00) Ct Abdomen/Pelvis Wo (07/06/23 10:00) Ns Iv 1000 Ml (Ns Iv 1000 Ml) (07/06/23 10:00) Ketorolac Injection (Ketorolac Injection (07/06/23 10:00) Urine Culture (07/06/23 10:15) Ceftriaxone Iv/Im (Ceftriaxone Iv/Im) (07/06/23 11:39) Vital Signs/I&O 07/06/23 07/06/23 09:50 12:00 Temp 36.4 36.4 Pulse 73 73 Resp 16 16 B/P (MAP) 113/64 (80) 112/64 Pulse Ox 97 97 O2 Delivery Room Air Room Air Progress Progress Note #1: Progress Note Differential diagnosis includes renal colic, pyelonephritis, cystitis, colitis, diverticulitis, appendicitis. Try to obtain urine specimen for testing. Establish peripheral IV access and send for complete blood count and comprehensive metabolic profile with lipase. Administer normal saline 1 L IV fluid bolus for hydration with ketorolac 15 mg IV for pain. CT scan of the abdomen and pelvis without IV contrast to look for pathology to be causing her right flank pain. Progress Note #2: Progress Note Complete blood count did not show an elevated white blood cell count as it was 8.6. Hemoglobin is low normal at 12.4. Comprehensive metabolic profile did not show any acute electrolyte abnormalities to account for her left flank pain. Her BUN and creatinine were normal at 11 and 0.64. Her lipase was normal at 24. The CT scan of the abdomen and pelvis without IV contrast did not show any ureteral stones or acute pathology in the right flank to account for her pain an d spasms. She reported some improvement in her symptoms after the Toradol and IV fluids here in the ED. Awaiting urinalysis. Progress Note #3: Progress Note Urinalysis shows infection with a specific gravity greater than 1.030, 2+ leukocytes, too numerous to count white blood cells and moderate bacteria. A culture was reflexed. Based off of her previous urine cultures in the system she has had E. coli before that was resistant to ampicillin but sensitive to cephalosporins. Give Rocephin 1 g IV here and discharged on cefdinir 300 mg p.o. twice daily x7 days. For spasms will prescribe Levsin 0.125 mg sublingual every 6 hours as needed spasm and pain. Advised patient could take Tylenol in addition to the aspirin she is already taking if she needed something additional for pain. Stressed importance of drinking more water and electrolyte drinks a lot of soda. She states that she drinks a lot of Diet Coke. Diagnostic Imaging Diagonstic Imaging: CT Plain Films/CT/US/NM/MRI: abdomen, pelvis Comments [facility], [place] NAME: [facility] REC#: [id number] PT STATUS: REG ER : 1950 PHYSICIAN: JANELL WAGNER MD ADMIT DATE: 07/06/23/ER FS Draft Date of Exam:07/06/23 CT ABDOMEN/PELVIS WO EXAMINATION: CT abdomen and pelvis without contrast. TECHNIQUE: Multiple contiguous axial images were obtained through the abdomen and pelvis without the use of intravenous contrast. All CT scans use one or more of the following dose optimizing techniques: automated exposure control, MA and/or KvP adjustment based on patient size and exam type or iterative reconstruction. HISTORY: Right flank pain. COMPARISON: None available. FINDINGS: Limited views of the lower thorax are unremarkable. The liver is normal without focal lesion. There is no biliary ductal dilation. Gallbladder is normal. Pancreas is normal. Spleen is normal. Adrenal glands are normal. The kidneys are normal. There is no hydronephrosis. Urinary bladder is normal. No renal or ureteral stones are seen. Bowel is normal in caliber without obstruction or inflammation. No free fluid or air. No abdominal or pelvic lymphadenopathy. Aorta is normal in caliber without aneurysm. There are no suspicious osseus lesions. There has been a right hip arthroplasty. IMPRESSION: No renal or ureteral stones. Dictated on workstation # [id number] Dict: 07/06/23 1037 Trans: 07/06/23 1042 [id number] Interpreted by: BISHOP HINSON MD Electronically signed by: Reviewed: Reviewed by Me Departure Impression Primary Impression: Acute cystitis without hematuria Additional Impression: Acute right flank pain Disposition: 01 HOME, SELF-CARE Condition: Stable Departure-Patient Inst. Decision time for Depature: 11:57 Referrals: ALEX VILLASENOR MD (PCP/Family) Primary Care Physician Patient Instructions: Flank Pain ED, Urinary Tract Infection, Adult ED Add. Discharge Instructions: Take the full course of antibiotics for the urinary tract infection. Try to drink more water or electrolyte drinks to be better hydrated than drinking the diet sodas. May take acetaminophen in addition to your aspirin if needed for pain. The medicine for bladder spasms and spasms of the urinary tract can help with the cramping pain you get at times in your side and back. Check back with your regular provider for continued concerns or if not improving. All discharge instructions reviewed with patient and/or family. Voiced understanding. Scripts Cefdinir (Cefdinir) 300 Mg Capsule 300 MG PO BID for UTI for 7 Days, #14 CAP 0 Refills Prov: JANELL WAGNER MD 07/06/23 Hyoscyamine Sulfate (Levsin-Sl) 0.125 Mg Tab.subl 0.125 MG SL Q6H PRN for spasms/flank pain for 2 Days, #8 TAB 0 Refills Prov: JANELL WAGNER MD 07/06/23 JANELL WAGNER MD Jul 06, 2023 10:07
[2023-07-06 10:17] LABS: BASOPHILS % (AUTO) 1 % (0-10); EOSINOPHILS # (AUTO) 0.2 10^3/uL (0.0-0.3); EOSINOPHILS % (AUTO) 2 % (0-10); HEMATOCRIT 38 % (35-52); HEMOGLOBIN 12.4 g/dL (11.5-16.0); LYMPHOCYTES % (AUTO) 35 % (12-44); MEAN CORPUSCULAR HEMOGLOBIN 28 pg (25-34); MEAN CORPUSCULAR HGB CONC 33 g/dL (32-36); MEAN CORPUSCULAR VOLUME 87 fL (80-99); MEAN PLATELET VOLUME 9.8 fL (9.0-12.2); MONOCYTES # (AUTO) 0.7 10^3/uL (0.0-1.0); MONOCYTES % (AUTO) 8 % (0-12); NEUTROPHILS # (AUTO) 4.7 10^3/uL (1.8-7.8); NEUTROPHILS % (AUTO) 55 % (42-75); PLATELET COUNT 259 10^3/uL (130-400); WHITE BLOOD COUNT 8.6 10^3/uL (4.3-11.0)
[2023-07-06 10:34] LABS: POTASSIUM 4.1 MMOL/L (3.6-5.0); SODIUM 141 MMOL/L (135-145)
[2023-07-06 10:36] LABS: ALANINE AMINOTRANSFERASE < 5 U/L (0-55); ALKALINE PHOSPHATASE 134 U/L (40-136); BILIRUBIN,TOTAL 0.3 MG/DL (0.1-1.0); BUN/CREATININE RATIO 17; CALCIUM 9.4 MG/DL (8.5-10.1); CARBON DIOXIDE 23 MMOL/L (21-32); CHLORIDE 104 MMOL/L (98-107); CREATININE SERUM 0.64 MG/DL (0.60-1.30); GFR ESTIMATED 94; GLUCOSE 121 MG/DL (70-105)
[2023-07-06 10:37] LABS: ALBUMIN 4.1 GM/DL (3.2-4.5); TOTAL PROTEIN 6.7 GM/DL (6.4-8.2)
[2023-07-06 10:39] LABS: LIPASE 24 U/L (8-78)
--- NOTE | 2023-07-06 10:43 | Diagnostic Imaging Report ---
EXAMINATION: CT abdomen and pelvis without contrast. TECHNIQUE: Multiple contiguous axial images were obtained through the abdomen and pelvis without the use of intravenous contrast. All CT scans use one or more of the following dose optimizing techniques: automated exposure control, MA and/or KvP adjustment based on patient size and exam type or iterative reconstruction. HISTORY: Right flank pain. COMPARISON: None available. FINDINGS: Limited views of the lower thorax are unremarkable. The liver is normal without focal lesion. There is no biliary ductal dilation. Gallbladder is normal. Pancreas is normal. Spleen is normal. Adrenal glands are normal. The kidneys are normal. There is no hydronephrosis. Urinary bladder is normal. No renal or ureteral stones are seen. Bowel is normal in caliber without obstruction or inflammation. No free fluid or air. No abdominal or pelvic lymphadenopathy. Aorta is normal in caliber without aneurysm. There are no suspicious osseus lesions. There has been a right hip arthroplasty. IMPRESSION: No renal or ureteral stones. Dictated by: Dictated on workstation # [id number]
[2023-07-06 11:20] LABS: GLUCOSE, URINE (UA) NEGATIVE (NEGATIVE); KETONES,URINE TRACE (NEGATIVE); LEUKOCYTE ESTERASE ,URINE 2+ (NEGATIVE); NITRITE,URINE NEGATIVE (NEGATIVE); PROTEIN,URINE 1+ (NEGATIVE)
[2023-07-06 11:30] LABS: CLARITY,URINE CLOUDY; COLOR,URINE DARK YELLOW
[2023-07-06 11:31] LABS: BACTERIA,URINE MODERATE /HPF; BILIRUBIN,URINE 1+ (NEGATIVE); RBC,URINE 0-2 /HPF; WBC,URINE TNTC /HPF
[2023-07-06] MEDS ORDERED: cefTRIAXone IV/IM 1,000 MG in NS (IVPB) 50 ML 50 ML IV STA (11:39)
[2023-07-06] MEDS ORDERED: CEFD300C3 PO (11:57)
[2023-07-06] MEDS ORDERED: HYOS0.1283 SL (11:57)
[2023-07-06 12:00] VITALS: BP 112/64
== END 2023-07-06 12:01 | disposition home or self-care (01) ==
LOC: EDUNIT# 09:46 → ER FS 09:47
DX: N30.00 Acute cystitis without hematuria (principal); Z28.310 Unvaccinated for COVID-19
CPT/HCPCS: 36415; 74176; 80053; 81000; 83690; 85025; 87077; 87088